=== PATIENT | female | born 1935 | race Caucasian/White ===

== ENCOUNTER → 2016-10-14 | Outpatient (CLI) | payer MEDICARE, BC ==
[2014-11-15 15:02] VITALS: BP 111/56
[~2016-10-14] MED LIST: ACET500T33 PO; AMIO200T7 PO; ASPI325T4 PO; CALC-98 PO; DILT120C97 PO; LEVO500T38 PO; MULT-208 PO; NITR0.4T6 SL; PRAV80TA2 PO; RIVA20TA2 PO; VALS40TA2 PO; ZOLE5INF IJ
--- NOTE | 2016-10-14 17:18 | KCIC ---
Examination: Three views of the left foot HISTORY History of left foot pain, bruising, swelling status post fall FINDINGS: Mild degenerative changes identified in the talonavicular region. The alignment of the tarsal bones grossly appears unremarkable. There is a minimal displaced fracture of the lateral base of the 5th metatarsal. IMPRESSION Mild displaced fracture of the lateral base of the 5th metatarsal. Electronically signed by: Dwayne Lemons (Oct 14, 2016 17:16:11)
--- NOTE | 2016-10-14 17:26 | KCIC ---
Examination: Three views of the right wrist HISTORY history of right wrist pain, bruising status post fall. COMPARISON None available Findings The alignment of the carpal bones grossly appears unremarkable. Degenerative changes identified in the carpal joints. Mild posterior cortical irregularityidentified in the lunate bone likely degeneration. There is widening of the scapholunate interval measuring 3.4 millimeters in transverse dimension. There is faint lucent line identified in the lateral aspect of the scaphoid could be artifactual given the appearance and less likely a fracture. Small ulnar styloid osteophyte. IMPRESSION 1. Widening of the scapholunate interval. Underlying scapholunate ligament injury is not excluded. There is subtle cortical lucent line lateral aspect of the scaphoid bone probably artifactual given the appearance however, a subtle fracture is not completely excluded. Recommend followup MRI for further evaluation. 2. Moderate degenerative changes carpal joints. Electronically signed by: Dwayne Lemons (Oct 14, 2016 17:24:41)
== END | disposition home or self-care (01) ==
LOC: KCIC 15:27
PROVIDERS: ATTEND Family Medicine
DX: M79.672 Pain in left foot (principal); M25.531 Pain in right wrist; S60.211A Contusion of right wrist, initial encounter; M47.899 Other spondylosis, site unspecified; S92.352A Displaced fracture of fifth metatarsal bone, left foot, initial encounter for closed fracture; M25.432 Effusion, left wrist
CPT/HCPCS: 73110; 73630

== ENCOUNTER → 2017-05-03 | Outpatient (CLI) | payer MEDICARE, BC ==
[2014-11-15 15:02] VITALS: BP 111/56
[~2017-05-03] MED LIST changes: -ASPI325T4 PO; +ASPI325T8 PO; +DILT120C80 PO; -DILT120C97 PO; -LEVO500T38 PO; +LEVO500T59 PO; +NITR0.4T22 SL; -NITR0.4T6 SL
--- NOTE | 2017-05-03 12:28 | CARD ---
APPROVED REPORT EXAM: Two-dimensional and M-mode echocardiogram with Doppler and color Doppler. Other Information Quality : Good INDICATION Atrial Fibrillation 2D DIMENSIONS RVDd3.0 (2.9-3.5cm)Left Atrium(2D)3.5 (1.6-4.0cm) IVSd1.0 (0.7-1.1cm)Aortic Root(2D)2.6 (2.0-3.7cm) LVDd4.2 (3.9-5.9cm)LVOT Diameter2.1 (1.8-2.4cm) PWd1.1 (0.7-1.1cm)LVDs2.7 (2.5-4.0cm) FS (%) 30.0 %SV52.8 ml LVEF(%)60.0 (>50%) Aortic Valve AoV Peak Enzo.108.7cm/sAoV VTI22.0cm AO Peak GR.4.7mmHgLVOT VTI 19.92cm AO Mean GR.3mmHgAVA (VTI)3.10cm2 Mitral Valve MV E Qgpdkyny477.9cm/sMV DECEL SLQO560sl MV A Muzhdupu52.6cm/sE/A Ratio1.1 TDI Lateral E' P. V10.75cm/sMedial E' P. V4.76cm/s E/Lateral E'9.5E/Medial E'21.4 Tricuspid Valve TR P. Zpemfmud332zr/sRAP CJREUFTX5jyWx TR Peak Gr.33lcNaDDZH97duUg Pulmonary Vein S1 Mmqjhijf38.4cm/sS2 Yefgjhfs66.56cm/s D2 Uypfzrcd30.6cm/s LEFT VENTRICLE The left ventricle is normal size. There is normal left ventricular wall thickness. The left ventricu lar systolic function is normal. The Ejection Fraction is 55-60%. There is normal LV segmental wall m otion. Transmitral Doppler flow pattern is Grade I-abnormal relaxation pattern. RIGHT VENTRICLE The right ventricle is normal size. The right ventricular systolic function is normal. ATRIA The left atrium size is normal. The right atrium size is normal. The interatrial septum is intact wit h no evidence for an atrial septal defect or patent foramen ovale as noted on 2-D or Doppler imaging. AORTIC VALVE The aortic valve is calcified but opens well. Doppler and Color Flow revealed no significant aortic r egurgitation. There is no significant aortic valvular stenosis. There is no aortic valvular vegetatio n. MITRAL VALVE The mitral valve is calcified but opens well. There is no evidence of mitral valve prolapse. There is no mitral valve stenosis. Doppler and Color-flow revealed mild mitral regurgitation. TRICUSPID VALVE The tricuspid valve is normal in structure and function. Doppler and Color Flow revealed mild tricusp id regurgitation. There is mild pulmonary hypertension. The PA pressure was estimated at 30 mmHg. The re is no tricuspid valve stenosis. PULMONIC VALVE The pulmonary valve is normal in structure and function. Doppler and Color Flow revealed trace to mil d pulmonic valvular regurgitation. There is no pulmonic valvular stenosis. GREAT VESSELS The aortic root is normal in size. The ascending aorta is normal in size. The IVC is normal in size a nd collapses >50% with inspiration. PERICARDIAL EFFUSION There is moderate left pleural effusion. There is no evidence of significant pericardial effusion. Critical Notification Critical Value: No <Conclusion> The left ventricular systolic function is normal. The Ejection Fraction is 55-60%. There is normal LV segmental wall motion. Mild mitral regurgitation. Mild tricuspid regurgitation. The PA pressure was estimated at 30 mmHg. There is no evidence of significant pericardial effusion.
== END | disposition home or self-care (01) ==
LOC: ECHO 08:38
PROVIDERS: ATTEND Internal Medicine Cardiovascular Disease
DX: I08.1 Rheumatic disorders of both mitral and tricuspid valves (principal); I48.0 Paroxysmal atrial fibrillation
CPT/HCPCS: 93306

== ENCOUNTER → 2018-03-22 | Outpatient (CLI) | payer MEDICARE, BC | END | disposition home or self-care (01) | LOC: US 15:41 | DX: I65.23 Occlusion and stenosis of bilateral carotid arteries (principal); I25.2 Old myocardial infarction; E78.5 Hyperlipidemia, unspecified; I48.0 Paroxysmal atrial fibrillation | CPT/HCPCS: 93880 ==

== ENCOUNTER 2018-04-11 14:17 | Inpatient (IN) | payer MEDICARE, BC ==
[~2018-04-11] VITALS: Ht 157.5 cm; Wt 68.0 kg
[2018-04-11] MEDS ORDERED: NITROGLYCERIN OINT 1 GM PACKET. TP ONE (14:45)
[2018-04-11] MEDS ORDERED: ASPIRIN CHEWABLE 81 MG TABLET. PO ONE (14:45)
[2018-04-11 14:52] LABS: BASO % 1 % (0-3); EOS # 0.2 x10^3/uL (0.0-0.7); EOS % 4 % (0-3); HEMATOCRIT 33.1 % (36.0-47.0); HEMOGLOBIN 10.6 g/dL (12.0-15.5); LYMPH # 0.9 x10^3/uL (1.0-4.8); LYMPH % 20 % (24-48); MEAN CORPUSCULAR HEMOGLOBIN 22 pg (25-35); MEAN CORPUSCULAR HGB CONC 32 g/dL (31-37); MEAN CORPUSCULAR VOLUME 70 fL (79-100); MONO # 0.6 x10^3/uL (0.0-1.1); MONO % 14 % (0-9); NEUT # 2.6 x10^3uL (1.8-7.7); NEUT % 62 % (31-73); PLATELET COUNT 132 x10^3/uL (140-400); RED BLOOD COUNT 4.76 x10^6/uL (3.50-5.40); WHITE BLOOD COUNT 4.2 x10^3/uL (4.0-11.0)
--- NOTE | 2018-04-11 15:00 | RAD ---
Single view of the chest. 04/11/2018 2:43 PM Indication: CHEST PAIN,SHORT OF AIR Comparison: Chest radiograph November 14, 2014 Findings: Calcified granuloma in the right lung base is stable. No pneumothorax, pleural effusion, or focal consolidative infiltrate is seen. Heart size is normal. No acute osseous abnormalities are seen. Impression: No evidence of acute cardiopulmonary process. Electronically signed by: Chad Grove MD (04/11/2018 2:56 PM) [id number]
--- NOTE | 2018-04-11 15:04 | PHYS DOC ---
Past Medical History Past Medical History: Hypertension, [place], Other Additional Past Medical Histor: LEUKOPENIA, COLON PROLASPE, L bundle branch block Past Surgical History: Hysterectomy, Other Additional Past Surgical Histo: COLON RESECTION, cataract removal Alcohol Use: None Drug Use: None Adult General Chief Complaint Chief Complaint: CHEST PAIN HPI HPI Patient is an 82-year-old female who presents to the emergency department for evaluation, upon referral from her PCPs office. She states that for the past few weeks, she has been having exertional chest discomfort, radiating to her neck and back along with some shortness of breath. She has a history of a prior "heart attack", but states she has never had stents put in. She also has a history of atrial fibrillation, and takes Eliquis. She does have chronic orthopnea but this is not new or different. She has not had any significant pleuritic chest pain but does have some mild exertional shortness of breath. She doesn't a history of valvular heart disease as well. Her no alleviating, or exacerbating factors to the patient's symptoms except as noted above. Review of Systems Review of Systems Constitutional: Denies fever or chills [] Eyes: Denies change in visual acuity, redness, or eye pain [] HENT: Denies nasal congestion or sore throat [] Respiratory: Denies cough or current shortness of breath [] Cardiovascular: No additional information not addressed in HPI [] GI: Denies abdominal pain, nausea, vomiting, bloody stools or diarrhea [] : Denies dysuria or hematuria [] Musculoskeletal: Denies back pain or joint pain [] Integument: Denies rash or skin lesions [] Neurologic: Denies headache, focal weakness or sensory changes [] Endocrine: Denies polyuria or polydipsia [] All other systems were reviewed and found to be within normal limits, except as documented in this note. Current Medications Current Medications Current Medications Medications (Trade) Dose Ordered Sig/Emilio Start Time Stop Time Status Last Admin Dose Admin Aspirin (Children'S Aspirin) 243 mg 1X ONCE 04/11/18 14:45 04/11/18 14:46 DC Nitroglycerin (Nitro-Bid Oint) 1 inch 1X ONCE 04/11/18 14:45 04/11/18 14:46 DC Allergies Allergies Allergies Coded Allergies Type Severity Reaction Last Updated Verified codeine Allergy Intermediate diarrhea, vomiting 05/17/14 Yes I S O L A T I O N *CONTACT* Allergy Unknown 11/15/14 Yes Physical Exam Physical Exam PHYSICAL EXAM: CONSTITUTIONAL: Well developed, well nourished HEAD: normocephalic, atraumatic EENT: PERRL, EOMI. Conjunctivae normal color, sclerae non-icteric; moist mucous membranes. NECK: Supple, non-tender; no meningismus. LUNGS: Lungs CTA, breathing even and unlabored. Normal air movement. HEART: Regular rate and rhythm, there is a soft systolic murmur. An S3 gallop is heard. CHEST: No deformity; non-tender ABDOMEN: The abdomen is soft, and non-tender, no masses or bruits. EXTREM: Normal ROM; no deformity, no calf tenderness. Normal pulses palpable in all extremities. There is no pedal edema. SKIN: No rash; no diaphoresis NEURO: Alert; normal speech and cognition; CN's grossly intact; strength grossly intact without focal deficit. BACK: No CVA TTP. Current Patient Data Vital Signs Vital Signs Date Time Temp Pulse Resp B/P (MAP) Pulse Ox O2 Delivery O2 Flow Rate FiO2 04/11/18 14:38 98.3 64 15 177/81 (113) 97 Room Air 98.3 Lab Values Laboratory Tests Test 04/11/18 14:41 White Blood Count 4.2 x10^3/uL (4.0-11.0) Red Blood Count 4.76 x10^6/uL (3.50-5.40) Hemoglobin 10.6 g/dL (12.0-15.5) L Hematocrit 33.1 % (36.0-47.0) L Mean Corpuscular Volume 70 fL (79-100) L Mean Corpuscular Hemoglobin 22 pg (25-35) L Mean Corpuscular Hemoglobin Concent 32 g/dL (31-37) Red Cell Distribution Width 21.0 % (11.5-14.5) H Platelet Count 132 x10^3/uL (140-400) L Neutrophils (%) (Auto) 62 % (31-73) Lymphocytes (%) (Auto) 20 % (24-48) L Monocytes (%) (Auto) 14 % (0-9) H Eosinophils (%) (Auto) 4 % (0-3) H Basophils (%) (Auto) 1 % (0-3) Neutrophils # (Auto) 2.6 x10^3uL (1.8-7.7) Lymphocytes # (Auto) 0.9 x10^3/uL (1.0-4.8) L Monocytes # (Auto) 0.6 x10^3/uL (0.0-1.1) Eosinophils # (Auto) 0.2 x10^3/uL (0.0-0.7) Basophils # (Auto) 0.0 x10^3/uL (0.0-0.2) Platelet Estimate Decreased (ADEQUATE) Hypochromasia Marked Anisocytosis Mod Microcytosis Marked Ovalocytes Few Sodium Level 136 mmol/L (136-145) Potassium Level 3.9 mmol/L (3.5-5.1) Chloride Level 102 mmol/L (98-107) Carbon Dioxide Level 24 mmol/L (21-32) Anion Gap 10 (6-14) Blood Urea Nitrogen 17 mg/dL (7-20) Creatinine 1.1 mg/dL (0.6-1.0) H Estimated GFR (Cockcroft-Gault) 47.7 BUN/Creatinine Ratio 15 (6-20) Glucose Level 97 mg/dL (70-99) Calcium Level 9.8 mg/dL (8.5-10.1) Magnesium Level 1.9 mg/dL (1.8-2.4) Total Bilirubin 0.4 mg/dL (0.2-1.0) Aspartate Amino Transferase (AST) 17 U/L (15-37) Alanine Aminotransferase (ALT) 21 U/L (14-59) Alkaline Phosphatase 86 U/L (46-116) Creatine Kinase 69 U/L (26-192) Creatine Kinase MB (Mass) 2.2 ng/mL (0.0-3.6) Creatine Kinase MB Relative Index % (0-4) Troponin I Quantitative < 0.017 ng/mL (0.000-0.055) OE-Fmg-C-Type Natriuretic Peptide 533 pg/mL (0-449) H Total Protein 7.1 g/dL (6.4-8.2) Albumin 3.9 g/dL (3.4-5.0) Albumin/Globulin Ratio 1.2 (1.0-1.7) Lipase 117 U/L (73-393) Laboratory Tests 04/11/18 14:41 Laboratory Tests 04/11/18 14:41 EKG EKG . Normal sinus rhythm at a rate of 64 beats for minute, left axis deviation, normal intervals, there are no acute ischemic ST/T changes noted. Radiology/Procedures Radiology/Procedures [PROCEDURE: PORTABLE CHEST 1V Single view of the chest. 04/11/2018 2:43 PM Indication: CHEST PAIN,SHORT OF AIR Comparison: Chest radiograph November 14, 2014 Findings: Calcified granuloma in the right lung base is stable. No pneumothorax, pleural effusion, or focal consolidative infiltrate is seen. Heart size is normal. No acute osseous abnormalities are seen. Impression: No evidence of acute cardiopulmonary process. ] Course & Med Decision Making Course & Med Decision Making Pertinent Labs and Imaging studies reviewed. (See chart for details) [3:40 PM: The patient's condition remains stable. I spoke with the hospitalist , who accepted the patient to the hospital for further evaluation and treatment. ] Dragon Disclaimer Dragon Disclaimer This electronic medical record was generated, in whole or in part, using a voice recognition dictation system. Departure Departure Impression: Primary Impression: Chest pain Disposition: ADMITTED INPATIENT Admitting Physician: Compa Morris Condition: STABLE Referrals: CAMERON TAYLOR MD (PCP) YASMIN LAWRENCE MD Apr 11, 2018 15:04
[2018-04-11 15:14] LABS: CALCIUM 9.8 mg/dL (8.5-10.1); CREATININE 1.1 mg/dL (0.6-1.0); GFR 47.7; POTASSIUM 3.9 mmol/L (3.5-5.1)
--- NOTE | 2018-04-11 15:17 | EKG ---
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
[2018-04-11 15:20] LABS: ALBUMIN 3.9 g/dL (3.4-5.0); ALBUMIN/GLOBULIN RATIO 1.2 (1.0-1.7); MAGNESIUM 1.9 mg/dL (1.8-2.4); TOTAL BILIRUBIN 0.4 mg/dL (0.2-1.0); TOTAL PROTEIN 7.1 g/dL (6.4-8.2)
[2018-04-11 15:22] LABS: ANISOCYTOSIS MOD; HYPOCHROMIA MARKED; PLT ESTIMATE DECREASED (ADEQUATE)
[2018-04-11 15:23] LABS: MICROCYTOSIS MARKED; OVALOCYTES FEW
[2018-04-11 15:27] LABS: CREATINE KINASE 69 U/L (26-192)
--- NOTE | 2018-04-11 16:59 | PDOC1 ---
History and Physical Date of Admission Date of Admission DATE: 04/11/18 TIME: 16:58 Identification/Chief Complaint Chief Complaint CC presented to the emergency department for evaluation, referral from her PCPs office. states that for the past few weeks, she has been having exertional chest discomfort, radiating to her neck and back , with shortness of breath. NONSMOKER Past Medical History Cardiovascular: AFIB, CAD, HTN, CT, Hyperlipidemia, Other Pulmonary: No pertinent hx CENTRAL NERVOUS SYSTEM: Other GI: Diverticulosis, Other Heme/Onc: Cancer Hepatobiliary: No pertinent hx Psych: No pertinent hx Musculoskeletal: Osteoarthritis Rheumatologic: No pertinent hx Infectious disease: No pertinent hx Renal/: UTI Endocrine: No pertinent hx Past Surgical History Past Surgical History: Hysterectomy, Colon Resection, Other Family History Family History: Coronary Artery Disease Family History: Parent Social History ALCOHOL: none Drugs: None Current Problem List Problem List Problems Medical Problems: (1) Chest pain Status: Acute Current Medications Current Medications Current Medications Aspirin (Children'S Aspirin) 243 mg 1X ONCE PO Last administered on 04/11/18at 15:39; Start 04/11/18 at 14:45; Stop 04/11/18 at 14:46; Status DC Nitroglycerin (Nitro-Bid Oint) 1 inch 1X ONCE TP Last administered on at 15:39; Start 04/11/18 at 14:45; Stop 04/11/18 at 14:46; Status DC Active Scripts Active Levaquin (Levofloxacin) 500 Mg Tablet 0.5 Tab PO DAILY 3 Days Reported Xarelto (Rivaroxaban) 20 Mg Tablet 20 Mg PO HS PRN Calcium + Vitamin D Tablet (Calcium Carbonate/Vitamin D3) 1 Each Tablet 1 Each PO BID Tylenol Extra Strength (Acetaminophen) 500 Mg Tablet 500 Mg PO PRN PRN Pravastatin Sodium 80 Mg Tablet 1 Tab PO HS Pacerone (Amiodarone Hcl) 200 Mg Tablet 100 Mg PO DAILY PRN NITROGLYCERIN SubLingual (Nitroglycerin) 0.4 Mg Tab.subl 1 Tab SL UD Multi-Day Vitamins (Multivitamin) 1 Each Tablet 1 Tab PO DAILY Diovan (Valsartan) 40 Mg Tablet 1 Tab PO DAILY Diltiazem 24HR Cd (Diltiazem Hcl) 120 Mg Cap.er.24h 1 Cap PO HS Aspirin 325 Mg Tablet 1 Tab PO DAILY Allergies Allergies: Coded Allergies: codeine (Verified Allergy, Intermediate, diarrhea, vomiting, 05/17/14) I S O L A T I O N *CONTACT* (Verified Allergy, Unknown, 11/15/14) mrsa + ROS Review of System Review of Systems Review of Systems Constitutional: Denies fever or chills [] Eyes: Denies change in visual acuity, redness, or eye pain [] HENT: Denies nasal congestion or sore throat [] Respiratory: Denies cough or current shortness of breath [] Cardiovascular: No additional information not addressed in HPI [] GI: Denies abdominal pain, nausea, vomiting, bloody stools or diarrhea [] : Denies dysuria or hematuria [] Musculoskeletal: Denies back pain or joint pain [] Integument: Denies rash or skin lesions [] Neurologic: Denies headache, focal weakness or sensory changes [] Endocrine: Denies polyuria or polydipsia [] 14 PT systems were reviewed and found to be within normal limits, except as documented . ALLERGY AND IMMUNOLOGY: No: Hives, Insect Bite Sensitivity, Itchy/Watery Eyes, Nasal Congestion, Post Nasal Drip, Seasonal Allergies, Other Breast: No New/Changing Breast Lumps, No Nipple changes, No Nipple discharge, No Other Physical Exam Physical Exam Physical Exam Physical Exam PHYSICAL EXAM: CONSTITUTIONAL: Well developed, well nourished HEAD: normocephalic, atraumatic EENT: PERRL, EOMI. Conjunctivae normal color, sclerae non-icteric; moist mucous membranes. NECK: Supple, non-tender; no meningismus. LUNGS: Lungs CTA, breathing even and unlabored. Normal air movement. HEART: Regular rate and rhythm, there is a soft systolic murmur. An S3 gallop is heard. CHEST: No deformity; non-tender ABDOMEN: The abdomen is soft, and non-tender, no masses or bruits. EXTREM: Normal ROM; no deformity, no calf tenderness. Normal pulses palpable in all extremities. There is no pedal edema. SKIN: No rash; no diaphoresis NEURO: Alert; normal speech and cognition; CN's grossly intact; strength grossly intact without focal deficit. General: Oriented X3, Cooperative Neuro: Cranial nerves 3-12 NL Vitals Vitals Vital Signs Date Time Temp Pulse Resp B/P (MAP) Pulse Ox O2 Delivery O2 Flow Rate FiO2 04/11/18 15:39 56 154/71 04/11/18 15:35 16 98 Room Air 04/11/18 14:38 98.3 98.3 Labs Labs Laboratory Tests Test 04/11/18 14:41 White Blood Count 4.2 x10^3/uL (4.0-11.0) Red Blood Count 4.76 x10^6/uL (3.50-5.40) Hemoglobin 10.6 g/dL (12.0-15.5) Hematocrit 33.1 % (36.0-47.0) Mean Corpuscular Volume 70 fL (79-100) Mean Corpuscular Hemoglobin 22 pg (25-35) Mean Corpuscular Hemoglobin Concent 32 g/dL (31-37) Red Cell Distribution Width 21.0 % (11.5-14.5) Platelet Count 132 x10^3/uL (140-400) Neutrophils (%) (Auto) 62 % (31-73) Lymphocytes (%) (Auto) 20 % (24-48) Monocytes (%) (Auto) 14 % (0-9) Eosinophils (%) (Auto) 4 % (0-3) Basophils (%) (Auto) 1 % (0-3) Neutrophils # (Auto) 2.6 x10^3uL (1.8-7.7) Lymphocytes # (Auto) 0.9 x10^3/uL (1.0-4.8) Monocytes # (Auto) 0.6 x10^3/uL (0.0-1.1) Eosinophils # (Auto) 0.2 x10^3/uL (0.0-0.7) Basophils # (Auto) 0.0 x10^3/uL (0.0-0.2) Platelet Estimate Decreased (ADEQUATE) Hypochromasia Marked Anisocytosis Mod Microcytosis Marked Ovalocytes Few Sodium Level 136 mmol/L (136-145) Potassium Level 3.9 mmol/L (3.5-5.1) Chloride Level 102 mmol/L (98-107) Carbon Dioxide Level 24 mmol/L (21-32) Anion Gap 10 (6-14) Blood Urea Nitrogen 17 mg/dL (7-20) Creatinine 1.1 mg/dL (0.6-1.0) Estimated GFR (Cockcroft-Gault) 47.7 BUN/Creatinine Ratio 15 (6-20) Glucose Level 97 mg/dL (70-99) Calcium Level 9.8 mg/dL (8.5-10.1) Magnesium Level 1.9 mg/dL (1.8-2.4) Total Bilirubin 0.4 mg/dL (0.2-1.0) Aspartate Amino Transf (AST/SGOT) 17 U/L (15-37) Alanine Aminotransferase (ALT/SGPT) 21 U/L (14-59) Alkaline Phosphatase 86 U/L (46-116) Creatine Kinase 69 U/L (26-192) Creatine Kinase MB (Mass) 2.2 ng/mL (0.0-3.6) Creatine Kinase MB Relative Index % (0-4) Troponin I Quantitative < 0.017 ng/mL (0.000-0.055) LT-Yzz-B-Type Natriuretic Peptide 533 pg/mL (0-449) Total Protein 7.1 g/dL (6.4-8.2) Albumin 3.9 g/dL (3.4-5.0) Albumin/Globulin Ratio 1.2 (1.0-1.7) Lipase 117 U/L (73-393) Laboratory Tests Test 04/11/18 14:41 White Blood Count 4.2 x10^3/uL (4.0-11.0) Red Blood Count 4.76 x10^6/uL (3.50-5.40) Hemoglobin 10.6 g/dL (12.0-15.5) Hematocrit 33.1 % (36.0-47.0) Mean Corpuscular Volume 70 fL (79-100) Mean Corpuscular Hemoglobin 22 pg (25-35) Mean Corpuscular Hemoglobin Concent 32 g/dL (31-37) Red Cell Distribution Width 21.0 % (11.5-14.5) Platelet Count 132 x10^3/uL (140-400) Neutrophils (%) (Auto) 62 % (31-73) Lymphocytes (%) (Auto) 20 % (24-48) Monocytes (%) (Auto) 14 % (0-9) Eosinophils (%) (Auto) 4 % (0-3) Basophils (%) (Auto) 1 % (0-3) Neutrophils # (Auto) 2.6 x10^3uL (1.8-7.7) Lymphocytes # (Auto) 0.9 x10^3/uL (1.0-4.8) Monocytes # (Auto) 0.6 x10^3/uL (0.0-1.1) Eosinophils # (Auto) 0.2 x10^3/uL (0.0-0.7) Basophils # (Auto) 0.0 x10^3/uL (0.0-0.2) Platelet Estimate Decreased (ADEQUATE) Hypochromasia Marked Anisocytosis Mod Microcytosis Marked Ovalocytes Few Sodium Level 136 mmol/L (136-145) Potassium Level 3.9 mmol/L (3.5-5.1) Chloride Level 102 mmol/L (98-107) Carbon Dioxide Level 24 mmol/L (21-32) Anion Gap 10 (6-14) Blood Urea Nitrogen 17 mg/dL (7-20) Creatinine 1.1 mg/dL (0.6-1.0) Estimated GFR (Cockcroft-Gault) 47.7 BUN/Creatinine Ratio 15 (6-20) Glucose Level 97 mg/dL (70-99) Calcium Level 9.8 mg/dL (8.5-10.1) Magnesium Level 1.9 mg/dL (1.8-2.4) Total Bilirubin 0.4 mg/dL (0.2-1.0) Aspartate Amino Transf (AST/SGOT) 17 U/L (15-37) Alanine Aminotransferase (ALT/SGPT) 21 U/L (14-59) Alkaline Phosphatase 86 U/L (46-116) Creatine Kinase 69 U/L (26-192) Creatine Kinase MB (Mass) 2.2 ng/mL (0.0-3.6) Creatine Kinase MB Relative Index % (0-4) Troponin I Quantitative < 0.017 ng/mL (0.000-0.055) PG-Ixc-X-Type Natriuretic Peptide 533 pg/mL (0-449) Total Protein 7.1 g/dL (6.4-8.2) Albumin 3.9 g/dL (3.4-5.0) Albumin/Globulin Ratio 1.2 (1.0-1.7) Lipase 117 U/L (73-393) VTE Prophylaxis Ordered VTE Prophylaxis Devices: No VTE Pharmacological Prophylaxi: Yes Assessment/Plan Assessment/Plan IMPRESSION 1. CHEST PAIN 2. HX A-FIB 3, HLP 4. HTN PLAN 1. TELE 2. ECHO 3. CARDIOLOGY CONSULT 4. SERIAL TROPONIN I CHEN ODELL MD Apr 11, 2018 16:59
[2018-04-11] MEDS ORDERED: ACETAMINOPHEN 500 MG TABLET PO PRN (17:15)
[2018-04-11 18:00] VITALS: BP 134/67
[2018-04-11] MEDS: CALCIUM CARB/VIT D3 500/200 TABLET. PO SCH (18:00)
[2018-04-11 19:15] VITALS: BP 134/68
[2018-04-11] MEDS: ATORVASTATIN CALCIUM 20 MG TABLET PO SCH (20:40)
[2018-04-11] MEDS: NITROGLYCERIN SUBLINGUAL 0.4 MG BOTTLE OF 25. SL PRN ×2 (20:46→21:19)
[2018-04-11] MEDS ORDERED: RIVAROXABAN 10 MG TABLET. PO SCH (21:00)
[2018-04-11] MEDS ORDERED: APIXABAN 2.5 MG TABLET. PO SCH (21:00)
[2018-04-11] MEDS ORDERED: LOSA25TA4 PO (21:01)
[2018-04-11] MEDS ORDERED: ASPI81TA50 PO (21:01)
[2018-04-11] MEDS ORDERED: OMEP20TA63 PO (21:01)
[2018-04-11] MEDS ORDERED: APIX2.5T PO (21:04)
[2018-04-11 23:00] VITALS: BP 106/74
[2018-04-12 03:09] VITALS: BP 110/72
[2018-04-12 05:07] LABS: BASO % 1 % (0-3); EOS # 0.2 x10^3/uL (0.0-0.7); EOS % 6 % (0-3); HEMATOCRIT 28.5 % (36.0-47.0); HEMOGLOBIN 9.2 g/dL (12.0-15.5); LYMPH # 0.8 x10^3/uL (1.0-4.8); LYMPH % 25 % (24-48); MEAN CORPUSCULAR HEMOGLOBIN 22 pg (25-35); MEAN CORPUSCULAR HGB CONC 32 g/dL (31-37); MEAN CORPUSCULAR VOLUME 69 fL (79-100); MONO # 0.6 x10^3/uL (0.0-1.1); MONO % 17 % (0-9); NEUT # 1.7 x10^3uL (1.8-7.7); NEUT % 51 % (31-73); PLATELET COUNT 112 x10^3/uL (140-400); RED BLOOD COUNT 4.15 x10^6/uL (3.50-5.40); RED CELL DISTRIBUTION WIDTH 20.6 % (11.5-14.5); WHITE BLOOD COUNT 3.3 x10^3/uL (4.0-11.0)
[2018-04-12 05:55] LABS: GFR 53.2; POTASSIUM 3.9 mmol/L (3.5-5.1)
[2018-04-12 07:00] VITALS: BP 113/59
[2018-04-12] MEDS: MULTIVITAMIN with MINERAL TABLET. PO SCH (08:31)
[2018-04-12] MEDS: ASPIRIN ENTERIC COATED 81 MG TABLET.DR. PO SCH (08:31)
[2018-04-12] MEDS: CALCIUM CARB/VIT D3 500/200 TABLET. PO SCH ×2 (08:32→17:36)
[2018-04-12] MEDS: AMIODARONE HCL 200 MG TABLET. PO SCH (08:32)
[2018-04-12] MEDS: PANTOPRAZOLE 40 MG TABLET.DR. PO SCH (08:32)
[2018-04-12] MEDS: LOSARTAN POTASSIUM 25 MG TABLET. PO SCH (08:33)
[2018-04-12] MEDS ORDERED: LACT1CAP6 PO (08:37)
[2018-04-12] MEDS ORDERED: LEVOFLOXACIN PO SCH (09:00)
[2018-04-12] MEDS ORDERED: LOSARTAN POTASSIUM 25 MG TABLET. PO SCH (09:00)
[2018-04-12] MEDS ORDERED: ASPIRIN 325 MG TABLET PO SCH (09:00)
[2018-04-12] MEDS: LACTOBACILLUS RHAMNOSUS GG 1 CAPSULE. PO SCH ×2 (09:01→20:52)
--- NOTE | 2018-04-12 10:32 | PDOC ---
PROGRESS NOTES Chief Complaint Chief Complaint Assessment/Plan Assessment/Plan IMPRESSION 1. CHEST PAIN 2. HX A-FIB 3, HLP 4. HTN PLAN 1. TELE 2. ECHO 3. STRESS TEST 4. SERIAL TROPONIN I SOME ANGINAL PAIN LAST NIGHT SL NTG X 2 HELPED Vitals Vitals Vital Signs Date Time Temp Pulse Resp B/P (MAP) Pulse Ox O2 Delivery O2 Flow Rate FiO2 04/12/18 08:33 57 113/59 04/12/18 08:00 Room Air 04/12/18 07:00 98.4 16 96 98.4 Physical Exam General: Oriented X3, Cooperative, No acute distress Lungs: Clear Abdomen: Normal bowel sounds, Soft Extremities: No clubbing, No cyanosis Skin: No rashes Labs LABS Laboratory Tests Test 04/11/18 14:41 04/11/18 18:50 04/11/18 21:50 04/12/18 04:10 White Blood Count 4.2 x10^3/uL (4.0-11.0) 3.3 x10^3/uL (4.0-11.0) Red Blood Count 4.76 x10^6/uL (3.50-5.40) 4.15 x10^6/uL (3.50-5.40) Hemoglobin 10.6 g/dL (12.0-15.5) 9.2 g/dL (12.0-15.5) Hematocrit 33.1 % (36.0-47.0) 28.5 % (36.0-47.0) Mean Corpuscular Volume 70 fL (79-100) 69 fL (79-100) Mean Corpuscular Hemoglobin 22 pg (25-35) 22 pg (25-35) Mean Corpuscular Hemoglobin Concent 32 g/dL (31-37) 32 g/dL (31-37) Red Cell Distribution Width 21.0 % (11.5-14.5) 20.6 % (11.5-14.5) Platelet Count 132 x10^3/uL (140-400) 112 x10^3/uL (140-400) Neutrophils (%) (Auto) 62 % (31-73) 51 % (31-73) Lymphocytes (%) (Auto) 20 % (24-48) 25 % (24-48) Monocytes (%) (Auto) 14 % (0-9) 17 % (0-9) Eosinophils (%) (Auto) 4 % (0-3) 6 % (0-3) Basophils (%) (Auto) 1 % (0-3) 1 % (0-3) Neutrophils # (Auto) 2.6 x10^3uL (1.8-7.7) 1.7 x10^3uL (1.8-7.7) Lymphocytes # (Auto) 0.9 x10^3/uL (1.0-4.8) 0.8 x10^3/uL (1.0-4.8) Monocytes # (Auto) 0.6 x10^3/uL (0.0-1.1) 0.6 x10^3/uL (0.0-1.1) Eosinophils # (Auto) 0.2 x10^3/uL (0.0-0.7) 0.2 x10^3/uL (0.0-0.7) Basophils # (Auto) 0.0 x10^3/uL (0.0-0.2) 0.0 x10^3/uL (0.0-0.2) Platelet Estimate Decreased (ADEQUATE) Hypochromasia Marked Anisocytosis Mod Microcytosis Marked Ovalocytes Few Sodium Level 136 mmol/L (136-145) 135 mmol/L (136-145) Potassium Level 3.9 mmol/L (3.5-5.1) 3.9 mmol/L (3.5-5.1) Chloride Level 102 mmol/L (98-107) 104 mmol/L (98-107) Carbon Dioxide Level 24 mmol/L (21-32) 24 mmol/L (21-32) Anion Gap 10 (6-14) 7 (6-14) Blood Urea Nitrogen 17 mg/dL (7-20) 18 mg/dL (7-20) Creatinine 1.1 mg/dL (0.6-1.0) 1.0 mg/dL (0.6-1.0) Estimated GFR (Cockcroft-Gault) 47.7 53.2 BUN/Creatinine Ratio 15 (6-20) Glucose Level 97 mg/dL (70-99) 83 mg/dL (70-99) Calcium Level 9.8 mg/dL (8.5-10.1) 9.0 mg/dL (8.5-10.1) Magnesium Level 1.9 mg/dL (1.8-2.4) Total Bilirubin 0.4 mg/dL (0.2-1.0) Aspartate Amino Transf (AST/SGOT) 17 U/L (15-37) Alanine Aminotransferase (ALT/SGPT) 21 U/L (14-59) Alkaline Phosphatase 86 U/L (46-116) Creatine Kinase 69 U/L (26-192) Creatine Kinase MB (Mass) 2.2 ng/mL (0.0-3.6) Creatine Kinase MB Relative Index % (0-4) Troponin I Quantitative < 0.017 ng/mL (0.000-0.055) < 0.017 ng/mL (0.000-0.055) < 0.017 ng/mL (0.000-0.055) CH-Lqn-I-Type Natriuretic Peptide 533 pg/mL (0-449) Total Protein 7.1 g/dL (6.4-8.2) Albumin 3.9 g/dL (3.4-5.0) Albumin/Globulin Ratio 1.2 (1.0-1.7) Lipase 117 U/L (73-393) Assessment and Plan Assessmemt and Plan Problems Medical Problems: (1) Chest pain Status: Acute Comment Review of Relevant I have reviewed the following items nacho (where applicable) has been applied. Labs Laboratory Tests Test 04/11/18 14:41 04/11/18 18:50 04/11/18 21:50 04/12/18 04:10 White Blood Count 4.2 x10^3/uL (4.0-11.0) 3.3 x10^3/uL (4.0-11.0) Red Blood Count 4.76 x10^6/uL (3.50-5.40) 4.15 x10^6/uL (3.50-5.40) Hemoglobin 10.6 g/dL (12.0-15.5) 9.2 g/dL (12.0-15.5) Hematocrit 33.1 % (36.0-47.0) 28.5 % (36.0-47.0) Mean Corpuscular Volume 70 fL (79-100) 69 fL (79-100) Mean Corpuscular Hemoglobin 22 pg (25-35) 22 pg (25-35) Mean Corpuscular Hemoglobin Concent 32 g/dL (31-37) 32 g/dL (31-37) Red Cell Distribution Width 21.0 % (11.5-14.5) 20.6 % (11.5-14.5) Platelet Count 132 x10^3/uL (140-400) 112 x10^3/uL (140-400) Neutrophils (%) (Auto) 62 % (31-73) 51 % (31-73) Lymphocytes (%) (Auto) 20 % (24-48) 25 % (24-48) Monocytes (%) (Auto) 14 % (0-9) 17 % (0-9) Eosinophils (%) (Auto) 4 % (0-3) 6 % (0-3) Basophils (%) (Auto) 1 % (0-3) 1 % (0-3) Neutrophils # (Auto) 2.6 x10^3uL (1.8-7.7) 1.7 x10^3uL (1.8-7.7) Lymphocytes # (Auto) 0.9 x10^3/uL (1.0-4.8) 0.8 x10^3/uL (1.0-4.8) Monocytes # (Auto) 0.6 x10^3/uL (0.0-1.1) 0.6 x10^3/uL (0.0-1.1) Eosinophils # (Auto) 0.2 x10^3/uL (0.0-0.7) 0.2 x10^3/uL (0.0-0.7) Basophils # (Auto) 0.0 x10^3/uL (0.0-0.2) 0.0 x10^3/uL (0.0-0.2) Platelet Estimate Decreased (ADEQUATE) Hypochromasia Marked Anisocytosis Mod Microcytosis Marked Ovalocytes Few Sodium Level 136 mmol/L (136-145) 135 mmol/L (136-145) Potassium Level 3.9 mmol/L (3.5-5.1) 3.9 mmol/L (3.5-5.1) Chloride Level 102 mmol/L (98-107) 104 mmol/L (98-107) Carbon Dioxide Level 24 mmol/L (21-32) 24 mmol/L (21-32) Anion Gap 10 (6-14) 7 (6-14) Blood Urea Nitrogen 17 mg/dL (7-20) 18 mg/dL (7-20) Creatinine 1.1 mg/dL (0.6-1.0) 1.0 mg/dL (0.6-1.0) Estimated GFR (Cockcroft-Gault) 47.7 53.2 BUN/Creatinine Ratio 15 (6-20) Glucose Level 97 mg/dL (70-99) 83 mg/dL (70-99) Calcium Level 9.8 mg/dL (8.5-10.1) 9.0 mg/dL (8.5-10.1) Magnesium Level 1.9 mg/dL (1.8-2.4) Total Bilirubin 0.4 mg/dL (0.2-1.0) Aspartate Amino Transf (AST/SGOT) 17 U/L (15-37) Alanine Aminotransferase (ALT/SGPT) 21 U/L (14-59) Alkaline Phosphatase 86 U/L (46-116) Creatine Kinase 69 U/L (26-192) Creatine Kinase MB (Mass) 2.2 ng/mL (0.0-3.6) Creatine Kinase MB Relative Index % (0-4) Troponin I Quantitative < 0.017 ng/mL (0.000-0.055) < 0.017 ng/mL (0.000-0.055) < 0.017 ng/mL (0.000-0.055) PD-Lxc-P-Type Natriuretic Peptide 533 pg/mL (0-449) Total Protein 7.1 g/dL (6.4-8.2) Albumin 3.9 g/dL (3.4-5.0) Albumin/Globulin Ratio 1.2 (1.0-1.7) Lipase 117 U/L (73-393) Laboratory Tests Test 04/11/18 14:41 04/11/18 18:50 04/11/18 21:50 04/12/18 04:10 White Blood Count 4.2 x10^3/uL (4.0-11.0) 3.3 x10^3/uL (4.0-11.0) Red Blood Count 4.76 x10^6/uL (3.50-5.40) 4.15 x10^6/uL (3.50-5.40) Hemoglobin 10.6 g/dL (12.0-15.5) 9.2 g/dL (12.0-15.5) Hematocrit 33.1 % (36.0-47.0) 28.5 % (36.0-47.0) Mean Corpuscular Volume 70 fL (79-100) 69 fL (79-100) Mean Corpuscular Hemoglobin 22 pg (25-35) 22 pg (25-35) Mean Corpuscular Hemoglobin Concent 32 g/dL (31-37) 32 g/dL (31-37) Red Cell Distribution Width 21.0 % (11.5-14.5) 20.6 % (11.5-14.5) Platelet Count 132 x10^3/uL (140-400) 112 x10^3/uL (140-400) Neutrophils (%) (Auto) 62 % (31-73) 51 % (31-73) Lymphocytes (%) (Auto) 20 % (24-48) 25 % (24-48) Monocytes (%) (Auto) 14 % (0-9) 17 % (0-9) Eosinophils (%) (Auto) 4 % (0-3) 6 % (0-3) Basophils (%) (Auto) 1 % (0-3) 1 % (0-3) Neutrophils # (Auto) 2.6 x10^3uL (1.8-7.7) 1.7 x10^3uL (1.8-7.7) Lymphocytes # (Auto) 0.9 x10^3/uL (1.0-4.8) 0.8 x10^3/uL (1.0-4.8) Monocytes # (Auto) 0.6 x10^3/uL (0.0-1.1) 0.6 x10^3/uL (0.0-1.1) Eosinophils # (Auto) 0.2 x10^3/uL (0.0-0.7) 0.2 x10^3/uL (0.0-0.7) Basophils # (Auto) 0.0 x10^3/uL (0.0-0.2) 0.0 x10^3/uL (0.0-0.2) Platelet Estimate Decreased (ADEQUATE) Hypochromasia Marked Anisocytosis Mod Microcytosis Marked Ovalocytes Few Sodium Level 136 mmol/L (136-145) 135 mmol/L (136-145) Potassium Level 3.9 mmol/L (3.5-5.1) 3.9 mmol/L (3.5-5.1) Chloride Level 102 mmol/L (98-107) 104 mmol/L (98-107) Carbon Dioxide Level 24 mmol/L (21-32) 24 mmol/L (21-32) Anion Gap 10 (6-14) 7 (6-14) Blood Urea Nitrogen 17 mg/dL (7-20) 18 mg/dL (7-20) Creatinine 1.1 mg/dL (0.6-1.0) 1.0 mg/dL (0.6-1.0) Estimated GFR (Cockcroft-Gault) 47.7 53.2 BUN/Creatinine Ratio 15 (6-20) Glucose Level 97 mg/dL (70-99) 83 mg/dL (70-99) Calcium Level 9.8 mg/dL (8.5-10.1) 9.0 mg/dL (8.5-10.1) Magnesium Level 1.9 mg/dL (1.8-2.4) Total Bilirubin 0.4 mg/dL (0.2-1.0) Aspartate Amino Transf (AST/SGOT) 17 U/L (15-37) Alanine Aminotransferase (ALT/SGPT) 21 U/L (14-59) Alkaline Phosphatase 86 U/L (46-116) Creatine Kinase 69 U/L (26-192) Creatine Kinase MB (Mass) 2.2 ng/mL (0.0-3.6) Creatine Kinase MB Relative Index % (0-4) Troponin I Quantitative < 0.017 ng/mL (0.000-0.055) < 0.017 ng/mL (0.000-0.055) < 0.017 ng/mL (0.000-0.055) YD-Rbv-V-Type Natriuretic Peptide 533 pg/mL (0-449) Total Protein 7.1 g/dL (6.4-8.2) Albumin 3.9 g/dL (3.4-5.0) Albumin/Globulin Ratio 1.2 (1.0-1.7) Lipase 117 U/L (73-393) Medications Current Medications Aspirin (Children'S Aspirin) 243 mg 1X ONCE PO Last administered on 04/11/18at 15:39; Start 04/11/18 at 14:45; Stop 04/11/18 at 14:46; Status DC Nitroglycerin (Nitro-Bid Oint) 1 inch 1X ONCE TP Last administered on at 15:39; Start 04/11/18 at 14:45; Stop 04/11/18 at 14:46; Status DC Acetaminophen (Tylenol) 500 mg PRN Q6HRS PRN PO PAIN; Start 04/11/18 at 17:15 Amiodarone HCl (Cordarone) 100 mg DAILY PO Last administered on 04/12/18at 08:32 ; Start 04/12/18 at 09:00 Aspirin (Dana Aspirin) 325 mg DAILY PO ; Start 04/12/18 at 09:00; Stop at 09:00; Status Cancel Diltiazem HCl (Cardizem 24hr Cd) 120 mg HS PO ; Start 04/11/18 at 21:00; Stop at 21:15; Status DC Nitroglycerin (Nitrostat) 0.4 mg PRN Q1HR PRN SL CHEST PAIN Last administered on 04/11/18at 21:19; Start 04/11/18 at 17:15 Calcium/Vitamin D (Oscal D 500mg/ 200uts) 1 tab BIDWMEALS PO Last administered on 04/12/18at 08:32; Start 04/11/18 at 18:00 Non-Formulary Medication (Levofloxacin (Levaquin)) 0.5 tab DAILY PO ; Start at 09:00; Status UNV Multivitamins (Thera M Plus) 1 tab DAILY PO Last administered on 04/12/18at 08: 31; Start 04/12/18 at 09:00 Atorvastatin Calcium (Lipitor) 20 mg QHS PO Last administered on 04/11/18at 20: 40; Start 04/11/18 at 21:00 Rivaroxaban (Xarelto) 20 mg QHS PO ; Start 04/11/18 at 21:00; Stop 04/11/18 at 21:09; Status DC Losartan Potassium (Cozaar) 25 mg DAILY PO Last administered on 04/12/18at 08:33 ; Start 04/12/18 at 09:00 Aspirin (Ecotrin) 81 mg DAILY PO Last administered on 04/12/18at 08:31; Start at 09:00 Losartan Potassium (Cozaar) 25 mg DAILY PO ; Start 04/12/18 at 09:00; Status UNV Pantoprazole Sodium (Protonix) 40 mg DAILYAC PO Last administered on 04/12/18at 08:32; Start 04/12/18 at 07:30 Apixaban (Eliquis) 2.5 mg HS PO Last administered on 04/11/18at 21:18; Start at 21:00 Diltiazem HCl (Cardizem 24hr Cd) 120 mg DAILY PO Last administered on at 08:33; Start 04/12/18 at 09:00 Lactobacillus Rhamnosus (Culturelle) 1 cap BID PO Last administered on at 09:01; Start 04/12/18 at 09:00 Active Scripts Active Reported Probiotic (Lactobacillus Acidophilus) 1 Each Capsule 1 Each PO DAILY Eliquis (Apixaban) 2.5 Mg Tablet 2.5 Mg PO HS Prilosec Otc (Omeprazole Magnesium) 20 Mg Tablet.dr 1 Tab PO DAILY Losartan Potassium 25 Mg Tablet 25 Mg PO DAILY Aspir-Low (Aspirin) 81 Mg Tablet.dr 1 Tab PO DAILY Calcium + Vitamin D Tablet (Calcium Carbonate/Vitamin D3) 1 Each Tablet 1 Each PO BID Tylenol Extra Strength (Acetaminophen) 500 Mg Tablet 500 Mg PO PRN PRN Pravastatin Sodium 80 Mg Tablet 1 Tab PO HS Pacerone (Amiodarone Hcl) 200 Mg Tablet 100 Mg PO DAILY PRN NITROGLYCERIN SubLingual (Nitroglycerin) 0.4 Mg Tab.subl 1 Tab SL UD Multi-Day Vitamins (Multivitamin) 1 Each Tablet 1 Tab PO DAILY Diovan (Valsartan) 40 Mg Tablet 1 Tab PO DAILY Diltiazem 24HR Cd (Diltiazem Hcl) 120 Mg Cap.er.24h 1 Cap PO DAILY Vitals/I & O Vital Sign - Last 24 Hours 04/11/18 04/11/18 04/11/18/14/18 14:38 15:05 15:35 15:39 Temp 98.3 98.3 Pulse 64 58 58 56 Resp 15 12 16 B/P (MAP) 177/81 (113) 152/72 (98) 154/71 (98) 154/71 Pulse Ox 97 98 98 O2 Delivery Room Air Room Air Room Air 04/11/18 04/11/18 04/11/18 04/11/18 16:05 16:35 18:00 18:00 Temp 98.1 98.1 Pulse 50 50 58 Resp 20 16 16 B/P (MAP) 173/74 (107) 149/71 (97) 134/67 (89) Pulse Ox 98 98 98 O2 Delivery Room Air Room Air Room Air Room Air 04/11/18 04/11/18 04/11/18 04/11/18 19:15 20:00 20:46 21:19 Temp 98.0 98.0 Pulse 57 61 60 Resp 18 B/P (MAP) 134/68 (90) 134/68 126/61 Pulse Ox 98 O2 Delivery Room Air Room Air 04/11/18 04/12/18 04/12/18 04/12/18 23:00 03:09 07:00 08:00 Temp 98.1 98.0 98.4 98.1 98.0 98.4 Pulse 57 57 57 Resp 18 18 16 B/P (MAP) 106/74 (85) 110/72 (85) 113/59 (77) Pulse Ox 95 96 96 O2 Delivery Room Air Room Air Room Air Room Air 04/12/18 04/12/18 04/12/18 08:32 08:33 08:33 Pulse 57 57 57 B/P (MAP) 113/59 113/59 113/59 Intake and Output 04/11/18 04/11/18 04/12/18 15:00 23:00 07:00 Intake Total 660 ml Balance 660 ml CHEN ODELL MD Apr 12, 2018 10:32
[2018-04-12 11:00] VITALS: BP_SYST 129; BP_SYST 93; BP_DIAS 69; BP_DIAS 77
--- NOTE | 2018-04-12 11:56 | PDOC2 ---
RHONA TURK HAT MENDER 04/12/18 1156: CARDIAC CONSULT DATE OF CONSULT Date of Consult DATE: 04/12/18 TIME: 11:52 REASON FOR CONSULT Reason for Consult: chest pain REFERRING PHYSICIAN Referring Physician: Ming SOURCE Source: Chart review, Patient HISTORY OF PRESENT ILLNESS HISTORY OF PRESENT ILLNESS 82 year old female with a 2 week history of back/chest pain originally starting at a green party. Pain started in her back and then radiated through to the chest. Later the same day she had sharp pain that prevented her from getting out of bed and radiated to the jaw and left arm. She took SL NTG X 2 with resolution of symptoms. She now reports at least 5 episodes of pain that required her to take SL NTG all precipitated by walking then dyspnea and then back/chest pain. Troponin levels and EKG not consistent with AMI. She also has complaints of food "getting stuck" and difficulty swallowing. She has been eating primarily lettuce and fruit. She was scheduled to be evaluated by GI today but is missing that appointment. She has further c/o intermittent numbness in her right face but denies history of Edgar's palsy or trigeminal neuralgia. Reason for Visit: chest pain, MATA PAST MEDICAL HISTORY Cardiovascular: AFIB (paroxysmal), HTN, [place] (2009), Hyperlipidemia, Other (LBBB ; venous insufficiency with RF catheter ablation bilateral GSV) Pulmonary: No pertinent hx CENTRAL NERVOUS SYSTEM: Other (none) GI: Diverticulosis, GERD Heme/Onc: No pertinent hx Hepatobiliary: No pertinent hx Psych: No pertinent hx Musculoskeletal: Osteoarthritis Rheumatologic: No pertinent hx Infectious disease: No pertinent hx ENT: Other (epistaxis associated with Xarelto) Renal/: No pertinent hx Endocrine: No pertinent hx Dermatology: No pertinent hx PAST SURGICAL HISTORY Past Surgical History: Hysterectomy, Colectomy (partial due to diverticulitis and polyps - 2012) FAMILY HISTORY Family History: Cancer, Heart Disease SOCIAL HISTORY Smoke: No ALCOHOL: none Drugs: None Lives: with Family CURRENT MEDICATIONS CURRENT MEDICATIONS Current Medications Medications (Trade) Dose Ordered Sig/Emilio Route PRN Reason Start Time Stop Time Status Last Admin Dose Admin Aspirin (Children'S Aspirin) 243 mg 1X ONCE PO 04/11/18 14:45 04/11/18 14:46 DC 04/11/18 15:39 Nitroglycerin (Nitro-Bid Oint) 1 inch 1X ONCE TP 04/11/18 14:45 04/11/18 14:46 DC 04/11/18 15:39 Amiodarone HCl (Cordarone) 100 mg DAILY PO 04/12/18 09:00 04/12/18 08:32 Nitroglycerin (Nitrostat) 0.4 mg PRN Q1HR PRN SL CHEST PAIN 04/11/18 17:15 04/11/18 21:19 Calcium/Vitamin D (Oscal D 500mg/ 200uts) 1 tab BIDWMEALS PO 04/11/18 18:00 04/12/18 08:32 Multivitamins (Thera M Plus) 1 tab DAILY PO 04/12/18 09:00 04/12/18 08:31 Atorvastatin Calcium (Lipitor) 20 mg QHS PO 04/11/18 21:00 04/11/18 20:40 Losartan Potassium (Cozaar) 25 mg DAILY PO 04/12/18 09:00 04/12/18 08:33 Aspirin (Ecotrin) 81 mg DAILY PO 04/12/18 09:00 04/12/18 08:31 Pantoprazole Sodium (Protonix) 40 mg DAILYAC PO 04/12/18 07:30 04/12/18 08:32 Apixaban (Eliquis) 2.5 mg HS PO 04/11/18 21:00 04/11/18 21:18 Diltiazem HCl (Cardizem 24hr Cd) 120 mg DAILY PO 04/12/18 09:00 04/12/18 08:33 Lactobacillus Rhamnosus (Culturelle) 1 cap BID PO 04/12/18 09:00 04/12/18 09:01 ALLERGIES ALLERGIES: Coded Allergies: codeine (Verified Allergy, Intermediate, diarrhea, vomiting, 05/17/14) I S O L A T I O N *CONTACT* (Verified Allergy, Unknown, 11/15/14) mrsa + ROS Review of System 14 point review with pertinent positives in HPI PHYSICAL EXAM General: Alert, Oriented X3, Cooperative, No acute distress HEENT: Atraumatic, PERRLA Lungs: Clear to auscultation, Normal air movement Heart: Normal S1, Normal S2, No murmurs Abdomen: Soft Extremities: No edema, Normal pulses Skin: No rashes Neuro: Normal speech Psych/Mental Status: Mental status NL, Mood NL MUSCULOSKELETAL: Osteoarthritic changes both hands VITALS VITALS Vital Signs Date Time Temp Pulse Resp B/P (MAP) Pulse Ox O2 Delivery O2 Flow Rate FiO2 04/12/18 11:00 98.0 63 16 129/69 (89) 98 Room Air 98.0 LABS Lab: Laboratory Tests Test 04/11/18 14:41 04/11/18 18:50 04/11/18 21:50 04/12/18 04:10 White Blood Count 4.2 x10^3/uL (4.0-11.0) 3.3 x10^3/uL (4.0-11.0) Red Blood Count 4.76 x10^6/uL (3.50-5.40) 4.15 x10^6/uL (3.50-5.40) Hemoglobin 10.6 g/dL (12.0-15.5) 9.2 g/dL (12.0-15.5) Hematocrit 33.1 % (36.0-47.0) 28.5 % (36.0-47.0) Mean Corpuscular Volume 70 fL (79-100) 69 fL (79-100) Mean Corpuscular Hemoglobin 22 pg (25-35) 22 pg (25-35) Mean Corpuscular Hemoglobin Concent 32 g/dL (31-37) 32 g/dL (31-37) Red Cell Distribution Width 21.0 % (11.5-14.5) 20.6 % (11.5-14.5) Platelet Count 132 x10^3/uL (140-400) 112 x10^3/uL (140-400) Neutrophils (%) (Auto) 62 % (31-73) 51 % (31-73) Lymphocytes (%) (Auto) 20 % (24-48) 25 % (24-48) Monocytes (%) (Auto) 14 % (0-9) 17 % (0-9) Eosinophils (%) (Auto) 4 % (0-3) 6 % (0-3) Basophils (%) (Auto) 1 % (0-3) 1 % (0-3) Neutrophils # (Auto) 2.6 x10^3uL (1.8-7.7) 1.7 x10^3uL (1.8-7.7) Lymphocytes # (Auto) 0.9 x10^3/uL (1.0-4.8) 0.8 x10^3/uL (1.0-4.8) Monocytes # (Auto) 0.6 x10^3/uL (0.0-1.1) 0.6 x10^3/uL (0.0-1.1) Eosinophils # (Auto) 0.2 x10^3/uL (0.0-0.7) 0.2 x10^3/uL (0.0-0.7) Basophils # (Auto) 0.0 x10^3/uL (0.0-0.2) 0.0 x10^3/uL (0.0-0.2) Platelet Estimate Decreased (ADEQUATE) Hypochromasia Marked Anisocytosis Mod Microcytosis Marked Ovalocytes Few Sodium Level 136 mmol/L (136-145) 135 mmol/L (136-145) Potassium Level 3.9 mmol/L (3.5-5.1) 3.9 mmol/L (3.5-5.1) Chloride Level 102 mmol/L (98-107) 104 mmol/L (98-107) Carbon Dioxide Level 24 mmol/L (21-32) 24 mmol/L (21-32) Anion Gap 10 (6-14) 7 (6-14) Blood Urea Nitrogen 17 mg/dL (7-20) 18 mg/dL (7-20) Creatinine 1.1 mg/dL (0.6-1.0) 1.0 mg/dL (0.6-1.0) Estimated GFR (Cockcroft-Gault) 47.7 53.2 BUN/Creatinine Ratio 15 (6-20) Glucose Level 97 mg/dL (70-99) 83 mg/dL (70-99) Calcium Level 9.8 mg/dL (8.5-10.1) 9.0 mg/dL (8.5-10.1) Magnesium Level 1.9 mg/dL (1.8-2.4) Total Bilirubin 0.4 mg/dL (0.2-1.0) Aspartate Amino Transf (AST/SGOT) 17 U/L (15-37) Alanine Aminotransferase (ALT/SGPT) 21 U/L (14-59) Alkaline Phosphatase 86 U/L (46-116) Creatine Kinase 69 U/L (26-192) Creatine Kinase MB (Mass) 2.2 ng/mL (0.0-3.6) Creatine Kinase MB Relative Index % (0-4) Troponin I Quantitative < 0.017 ng/mL (0.000-0.055) < 0.017 ng/mL (0.000-0.055) < 0.017 ng/mL (0.000-0.055) LJ-Fqz-U-Type Natriuretic Peptide 533 pg/mL (0-449) Total Protein 7.1 g/dL (6.4-8.2) Albumin 3.9 g/dL (3.4-5.0) Albumin/Globulin Ratio 1.2 (1.0-1.7) Lipase 117 U/L (73-393) IMAGES IMAGES CXR: Findings: Calcified granuloma in the right lung base is stable. No pneumothorax, pleural effusion, or focal consolidative infiltrate is seen. Heart size is normal. No acute osseous abnormalities are seen. Impression: No evidence of acute cardiopulmonary process. EKG EKG no acute changes ECHOCARDIOGRAM ECHOCARDIOGRAM pending ASSESSMENT/PLAN ASSESSMENT/PLAN 1. chest/back pain --precipitated by exertion --relieved with SL NTG --EKG and troponin levels not consistent with AMI --echo to evaluate for valvular disease and assess LVEF --pharm MPI --- ate earlier today and had caffeine --- will schedule for tomorrow to evaluate for ischemic disease 2. PAF --EKG = SR --continue dilt for rate control and amiodarone as anti-arrhythmic --Xarelto stopped due to epistaxis and started on Eliquis but has only been taking once daily - increase to BID 3. HTN --control with meds 4. HLD --check FLP --continue statin therapy 5. dysphagia --consult GI 6. facial numbness --defer to primary service MATTHEW MARIE MD 04/12/18 7116: CARDIAC CONSULT ASSESSMENT/PLAN ASSESSMENT/PLAN Patient seen and examined. Agree with PROPERTY MANAGEMENT ACCOUNTANT's assessment and plan. Chest pain with mixed features. Myocardial infarction been ruled out. 2-D echo showed normal LV function. Plan for Lexiscan nuclear stress test to rule out ischemia. Thank you for your consultation. RHONA TURK APRN Apr 12, 2018 11:56 MATTHEW MARIE MD Apr 12, 2018 17:06
--- NOTE | 2018-04-12 12:02 | CARD ---
MR#: [id number] Date of Study: 04/12/2018 Ordering Physician: CHEN ODELL, Referring Physician: CHEN ODELL, Tech: SHASHA Fontenot APPROVED REPORT EXAM: Two-dimensional and M-mode echocardiogram with Doppler and color Doppler. Other Information Quality : AverageHR: 61bpm Rhythm : LBBB INDICATION Chest Pain 2D DIMENSIONS RVDd3.0 (2.9-3.5cm)Left Atrium(2D)2.9 (1.6-4.0cm) IVSd1.3 (0.7-1.1cm)Aortic Root(2D)2.4 (2.0-3.7cm) LVDd4.2 (3.9-5.9cm)LVOT Diameter1.9 (1.8-2.4cm) PWd1.3 (0.7-1.1cm)LVDs3.0 (2.5-4.0cm) FS (%) 29.0 %SV43.9 ml LVEF(%)56.1 (>50%) Aortic Valve AoV Peak Enzo.114.4cm/sAoV VTI25.2cm AO Peak GR.5.2mmHgLVOT VTI 17.72cm AO Mean GR.3mmHg Mitral Valve MV E Kfhsoqwc83.4cm/sMV E Peak Gr.62mmHg MV DECEL [id number] A Wcygrvfw78.1cm/s E/A Ratio1.1 TDI Lateral E' P. V9.65cm/sMedial E' P. V14.22cm/s E/Lateral E'9.5E/Medial E'6.4 Tricuspid Valve TR P. [id number]/sRAP [id number] TR Peak Gr.18mmHg LEFT VENTRICLE The left ventricle is normal size. There is mild concentric left ventricular hypertrophy. The left ve ntricular systolic function is normal. The ejection fraction is estimated at 55-60%. There is normal LV segmental wall motion. The left ventricular diastolic function and filling is normal for age. RIGHT VENTRICLE The right ventricle is normal size. The right ventricular systolic function is normal. ATRIA The left atrium size is normal. The right atrium size is normal. The interatrial septum is intact wit h no evidence for an atrial septal defect or patent foramen ovale as noted on 2-D or Doppler imaging. AORTIC VALVE The aortic valve is thickened but opens well. Doppler and Color Flow revealed no significant aortic r egurgitation. There is no significant aortic valvular stenosis. There is no aortic valvular vegetatio n. MITRAL VALVE The mitral valve is mildly thickened. There is no evidence of mitral valve prolapse. There is no mitr al valve stenosis. Doppler and Color-flow revealed mild mitral regurgitation. TRICUSPID VALVE The tricuspid valve is not well visualized. Doppler and Color Flow revealed mild tricuspid regurgitat ion. The PA pressure was estimated at 24 mmHg. There is no tricuspid valve stenosis. PULMONIC VALVE The pulmonic valve is not well visualized. Doppler and Color Flow revealed trace pulmonic valvular re gurgitation. There is no pulmonic valvular stenosis. GREAT VESSELS The aortic root is normal in size. The IVC is dilated and collapses >50% with inspiration. PERICARDIAL EFFUSION There is no pleural effusion. There is no evidence of significant pericardial effusion. Critical Notification Critical Value: No <Conclusion> The left ventricular systolic function is normal. The ejection fraction is estimated at 55-60%. There is normal LV segmental wall motion. Mild mitral regurgitation. Mild tricuspid regurgitation. The PA pressure was estimated at 24 mmHg. There is no evidence of significant pericardial effusion. Signed by : Patrick Don, Electronically Approved : 04/12/2018 12:01:26
[2018-04-12] MEDS: APIXABAN 2.5 MG TABLET. PO SCH ×2 (12:16→23:17)
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
[2018-04-12] MEDS: ANTI-COAG MONITOR BY PHARMACY. MC PRN (14:21)
[2018-04-12 15:00] VITALS: BP 117/62
[2018-04-12 19:34] VITALS: BP 142/60
[2018-04-12] MEDS: ATORVASTATIN CALCIUM 20 MG TABLET PO SCH (20:52)
[2018-04-12 23:45] VITALS: BP 136/49
[2018-04-13 03:14] VITALS: BP 130/97
[2018-04-13 05:09] LABS: CHOLESTEROL/HDL RATIO 2.2
[2018-04-13 07:36] VITALS: BP 138/66
[2018-04-13] MEDS ORDERED: REGADENOSON 0.4 MG/5 ML DISP.SYRIN. IV ONE (08:15)
[2018-04-13] MEDS: AMIODARONE HCL 200 MG TABLET. PO SCH (10:00)
[2018-04-13] MEDS: PANTOPRAZOLE 40 MG TABLET.DR. PO SCH (10:00)
[2018-04-13] MEDS: APIXABAN 2.5 MG TABLET. PO SCH ×2 (10:01→20:19)
[2018-04-13] MEDS: LOSARTAN POTASSIUM 25 MG TABLET. PO SCH (10:01)
[2018-04-13] MEDS: ASPIRIN ENTERIC COATED 81 MG TABLET.DR. PO SCH (10:01)
[2018-04-13] MEDS: MULTIVITAMIN with MINERAL TABLET. PO SCH (10:01)
[2018-04-13] MEDS: LACTOBACILLUS RHAMNOSUS GG 1 CAPSULE. PO SCH ×2 (10:01→20:18)
[2018-04-13] MEDS: CALCIUM CARB/VIT D3 500/200 TABLET. PO SCH ×2 (10:01→17:22)
[2018-04-13 11:13] VITALS: BP 136/63
--- NOTE | 2018-04-13 11:28 | PDOC ---
AWILDAThanhNICOLE NEWS CLERK 04/13/18 1128: CARDIO Progress Notes Date and Time Date of Service 04/13/2018 Time of Evaluation 1100 Subjective Subjective: No Chest Pain, No shortness of breath, No Palpitations, Other ( still has sensation of food and pill trapping when swallowing) Vitals Vitals Vital Signs Date Time Temp Pulse Resp B/P (MAP) Pulse Ox O2 Delivery O2 Flow Rate FiO2 04/13/18 10:01 75 138/66 04/13/18 08:43 Room Air 04/13/18 07:36 97.7 20 95 97.7 Weight Weight [ ] Input and Output Intake and Output Intake and Output 04/13/18 07:00 Intake Total 650 ml Balance 650 ml Intake Oral 650 ml # Voids 6 Physical Exam HEENT: Neck Supple W Full Motion Chest: Symmetric LUNGS: Clear to Auscultation Heart: S1S2, RRR (SR) Abdomen: Soft N/T Extremities: No Edema, No Calf Tenderness Neurology: alert, oriented, follow commands Assessment Assessment 1. Chest pain with back pain: Possibly GI related. EF/WM nml with mild MR/TR 2. PAFIB: remains in SR 3. HTN: controlled 4. HLP: on goal. 5. Dysphagia: EGD planned for tomorrow. 6. Left facial numbness; intermittent sometimes last for a day. Presently absent. No other associated symptoms. [place]? 7. Pancytopenia: per PCP Recommendations 1. Continue on low dose eliquis given her anemia and mild thrombocytopenia and recurring past epistaxis. 2. Continue on amiodarone and diltiazem. May hole eliquyomaira elmore in preparation for EGD tomorrow. 3. MPI completion today. 4. Consider neurology consult. MATTHEW MARIE MD 04/14/18 0908: CARDIO Progress Notes Assessment Assessment Patient seen and examined 04/13/18 (late entry). Agree with HOIST CYLINDER LOADER's assessment and plan. Lexiscan nuclear stress test did not show any significant ischemia Maintaining sinus rhythm Continue current medical regimen Follow-up with our office as previously scheduled NICOLE SERNA APRN Apr 13, 2018 11:28 MATTHEW MARIE MD Apr 14, 2018 09:08
--- NOTE | 2018-04-13 11:28 | RAD ---
MR#: [id number] Date of Study: 04/13/2018 Ordering Physician: RHONA TURK, Referring Physician: JUDITH LLAMAS Tech: RT Tonie (R) (N) APPROVED REPORT Test Type: Pharmacological Stress Nurse/Tech: Dori Beal R.N. Test Indications: chest pain Cardiac History: htn Medications: see ehr Medical History: see ehr Resting ECG: sr, LBBB Resting Heart Rate: 65 bpm Resting Blood Pressure: 131/63mmHg Pretest Chest Pain: Typical angina Nurse/Tech Notes LUngs cta, heart tones regular, pt c/o 4/10 chest apin which has been typical for her intermittantly Consent: The procedure was explained to the patient in lay terms. Informed consent was witnessed. Colin eout was entered into [employer]. History and Stress Test performed by [facility] Details Pharmacologic stress testing was performed using 0.4mg per 5ml of regadenoson given intravenously ove r 7-10 seconds. Stress Symptoms pt c/o chest pain started at 4/10 to 6/10 POST EXERCISE Reason for Termination: Infusion complete Target HR: No Max HR: 89 bpm Max Blood Pressure: 151/53mmHg Chest Pain: Yes. see above Arrhythmia: No. ST Change: No. INTERPRETATION Stress EKG Conclusion: Baseline EKG showed sinus rhythm with LBBB. No ischemic changes at peak stres s. No arrhythmias. Imaging Protocol IMAGE PROTOCOL: Rest Tc-99m/stress Tc-99m 1 day Rest: Stress: Viability: Radiopharm.Tc99m [id number] Sestamibi [id number] 32mCi Duration 13min. 13min. Img Date 04/13/2018 04/13/2018 Inj-Img [id number]. 60min. Rest Admin Site:IV - Left AntecubitalAdministrator:RT Michelle (R)(N) Stress Admin Site: IV - Left AntecubitalAdministrator: [facility] STRESS DATA End Diast. Vol.78.0mlLVEDV index BSA46.0ml End Syst. Vol.22.0mlLVESV index BSA13.0ml Myocardial Bxws598.0gEject. Gayoeqmo11.0% Stress Scores Regional WT0.00Summed WT1.00 Regional WM0.00Summed WM6.00 Study quality was good. Left Ventricular size was Normal at Rest and Stress. Lung uptake was Normal. Left Ventricular ejection fraction is 72%. The rest and stress images show normal perfusion, normal contraction and thickening. LV Perf. Quant 17 Seg. SSS0.00 17 Seg. SRS6.00 17 Seg. SDS0.00 Stress Defect Extent (% LAD)0.00Rest Defect Extent (% LAD)11.30Rev. Defect Extent (% LAD)0.00 Stress Defect Extent (% LCX) 0.00Rest Defect Extent (% LCX)0.00Rev. Defect Extent (% LCX)0.00 Stress Defect Extent (% RCA)0.00Rest Defect Extent (% RCA)22.20Rev. Defect Extent (% RCA)0.00 Stress Defect Extent (% JD)0.00Rest Defect Extent (% JD)11.70Rev. Defect Extent (% JD)0.00 Conclusion 1. Regadenoson cardioisotope stress test did not show any evidence of ischemia or infarct. 2. Normal left ventricular systolic function with ejection fraction calculated at 72%. 3. Low risk for cardiac events. Signed by : Patrick Don, Electronically Approved : 04/13/2018 11:27:01
--- NOTE | 2018-04-13 11:51 | PDOC ---
Subjective: Subjective: Clarifies that intermittent facial numbness is actually on left side and food sticks on left as well. Also, re: "colectomy" in history I believe refers to cystocele or rectocele repair. Objective: Objective: D/w Malorie/CLASS B DRIVER yesterday - suspects esophageal issue but could pursue outpt videoswallow if EGD unrevealing. Vital Signs: Vital Signs Date Time Temp Pulse Resp B/P (MAP) Pulse Ox O2 Delivery O2 Flow Rate FiO2 04/13/18 11:13 97.9 67 18 136/63 (87) 99 Room Air 97.9 Imaging: MPI 04/13/18 Conclusion 1. Regadenoson cardioisotope stress test did not show any evidence of ischemia or infarct. 2. Normal left ventricular systolic function with ejection fraction calculated at 72%. 3. Low risk for cardiac events. PE: GEN: NAD LUNGS: CTAB HEART: RRR ABD: NABS, S/ND/NT NEURO/PSYCH: A & O 3 A/P: Chest and back pain Dysphagia - now says on left side -- EGD tomorrow KAMLA Dela Cruz Apr 13, 2018 11:51
--- NOTE | 2018-04-13 13:17 | PDOC ---
PROGRESS NOTES Chief Complaint Chief Complaint Assessment/Plan Assessment/Plan IMPRESSION 1. CHEST PAIN 2. HX A-FIB 3, HLP 4. HTN 5. intermittent left facial paresthesia PLAN 1. TELE 2. ECHO 3. STRESS TEST 4. SERIAL TROPONIN I 5. neurology consult Vitals Vitals Vital Signs Date Time Temp Pulse Resp B/P (MAP) Pulse Ox O2 Delivery O2 Flow Rate FiO2 04/13/18 11:13 97.9 67 18 136/63 (87) 99 Room Air 97.9 Physical Exam General: Alert, Oriented X3, Cooperative, No acute distress Heart: Normal S1, Normal S2, No murmurs Lungs: Clear Abdomen: Normal bowel sounds, Soft, No tenderness Extremities: No clubbing, No cyanosis Skin: No rashes, No significant lesion Labs LABS Rest Admin Site: IV - Left Antecubital [employer]: José Miguel Duong, RT (R)( N) Stress Admin Site: IV - Left Antecubital [employer]: [facility] STRESS DATA End Diast. Vol. 78.0ml LVEDV index BSA 46.0ml End Syst. Vol. 22.0ml LVESV index BSA 13.0ml Myocardial Mass 123.0g Eject. Fraction 72.0% Stress Scores Regional WT 0.00 Summed WT 1.00 Regional WM 0.00 Summed WM 6.00 Study quality was good. Left Ventricular size was Normal at Rest and Stress. Lung uptake was Normal. Left Ventricular ejection fraction is 72%. The rest and stress images show normal perfusion, normal contraction and thickening. LV Perf. Quant 17 Seg. SSS 0.00 17 Seg. SRS 6.00 17 Seg. SDS 0.00 Stress Defect Extent (% LAD) 0.00 Rest Defect Extent (% LAD) 11.30 Rev. Defect Extent (% LAD) 0.00 Stress Defect Extent (% LCX) 0.00 Rest Defect Extent (% LCX) 0.00 Rev. Defect Extent (% LCX) 0.00 Stress Defect Extent (% RCA) 0.00 Rest Defect Extent (% RCA) 22.20 Rev. Defect Extent (% RCA) 0.00 Stress Defect Extent (% JD) 0.00 Rest Defect Extent (% JD) 11.70 Rev. Defect Extent (% JD) 0.00 Conclusion 1. Regadenoson cardioisotope stress test did not show any evidence of ischemia or infarct. 2. Normal left ventricular systolic function with ejection fraction calculated at 72%. 3. Low risk for cardiac events. Assessment and Plan Assessmemt and Plan Problems Medical Problems: (1) Chest pain Status: Acute Comment Review of Relevant I have reviewed the following items nacho (where applicable) has been applied. Labs Laboratory Tests Test 04/11/18 14:41 04/11/18 18:50 04/11/18 21:50 04/12/18 04:10 White Blood Count 4.2 x10^3/uL (4.0-11.0) 3.3 x10^3/uL (4.0-11.0) Red Blood Count 4.76 x10^6/uL (3.50-5.40) 4.15 x10^6/uL (3.50-5.40) Hemoglobin 10.6 g/dL (12.0-15.5) 9.2 g/dL (12.0-15.5) Hematocrit 33.1 % (36.0-47.0) 28.5 % (36.0-47.0) Mean Corpuscular Volume 70 fL (79-100) 69 fL (79-100) Mean Corpuscular Hemoglobin 22 pg (25-35) 22 pg (25-35) Mean Corpuscular Hemoglobin Concent 32 g/dL (31-37) 32 g/dL (31-37) Red Cell Distribution Width 21.0 % (11.5-14.5) 20.6 % (11.5-14.5) Platelet Count 132 x10^3/uL (140-400) 112 x10^3/uL (140-400) Neutrophils (%) (Auto) 62 % (31-73) 51 % (31-73) Lymphocytes (%) (Auto) 20 % (24-48) 25 % (24-48) Monocytes (%) (Auto) 14 % (0-9) 17 % (0-9) Eosinophils (%) (Auto) 4 % (0-3) 6 % (0-3) Basophils (%) (Auto) 1 % (0-3) 1 % (0-3) Neutrophils # (Auto) 2.6 x10^3uL (1.8-7.7) 1.7 x10^3uL (1.8-7.7) Lymphocytes # (Auto) 0.9 x10^3/uL (1.0-4.8) 0.8 x10^3/uL (1.0-4.8) Monocytes # (Auto) 0.6 x10^3/uL (0.0-1.1) 0.6 x10^3/uL (0.0-1.1) Eosinophils # (Auto) 0.2 x10^3/uL (0.0-0.7) 0.2 x10^3/uL (0.0-0.7) Basophils # (Auto) 0.0 x10^3/uL (0.0-0.2) 0.0 x10^3/uL (0.0-0.2) Platelet Estimate Decreased (ADEQUATE) Hypochromasia Marked Anisocytosis Mod Microcytosis Marked Ovalocytes Few Sodium Level 136 mmol/L (136-145) 135 mmol/L (136-145) Potassium Level 3.9 mmol/L (3.5-5.1) 3.9 mmol/L (3.5-5.1) Chloride Level 102 mmol/L (98-107) 104 mmol/L (98-107) Carbon Dioxide Level 24 mmol/L (21-32) 24 mmol/L (21-32) Anion Gap 10 (6-14) 7 (6-14) Blood Urea Nitrogen 17 mg/dL (7-20) 18 mg/dL (7-20) Creatinine 1.1 mg/dL (0.6-1.0) 1.0 mg/dL (0.6-1.0) Estimated GFR (Cockcroft-Gault) 47.7 53.2 BUN/Creatinine Ratio 15 (6-20) Glucose Level 97 mg/dL (70-99) 83 mg/dL (70-99) Calcium Level 9.8 mg/dL (8.5-10.1) 9.0 mg/dL (8.5-10.1) Magnesium Level 1.9 mg/dL (1.8-2.4) Total Bilirubin 0.4 mg/dL (0.2-1.0) Aspartate Amino Transf (AST/SGOT) 17 U/L (15-37) Alanine Aminotransferase (ALT/SGPT) 21 U/L (14-59) Alkaline Phosphatase 86 U/L (46-116) Creatine Kinase 69 U/L (26-192) Creatine Kinase MB (Mass) 2.2 ng/mL (0.0-3.6) Creatine Kinase MB Relative Index % (0-4) Troponin I Quantitative < 0.017 ng/mL (0.000-0.055) < 0.017 ng/mL (0.000-0.055) < 0.017 ng/mL (0.000-0.055) KY-Bug-A-Type Natriuretic Peptide 533 pg/mL (0-449) Total Protein 7.1 g/dL (6.4-8.2) Albumin 3.9 g/dL (3.4-5.0) Albumin/Globulin Ratio 1.2 (1.0-1.7) Lipase 117 U/L (73-393) Triglycerides Level 46 mg/dL (0-150) Cholesterol Level 132 mg/dL (0-200) LDL Cholesterol, Calculated 62 mg/dL (0-100) VLDL Cholesterol, Calculated 9 mg/dL (0-40) Non-HDL Cholesterol Calculated 71 mg/dL (0-129) HDL Cholesterol 61 mg/dL (40-60) Cholesterol/HDL Ratio 2.2 Medications Current Medications Aspirin (Children'S Aspirin) 243 mg 1X ONCE PO Last administered on 04/11/18at 15:39; Start 04/11/18 at 14:45; Stop 04/11/18 at 14:46; Status DC Nitroglycerin (Nitro-Bid Oint) 1 inch 1X ONCE TP Last administered on at 15:39; Start 04/11/18 at 14:45; Stop 04/11/18 at 14:46; Status DC Acetaminophen (Tylenol) 500 mg PRN Q6HRS PRN PO PAIN; Start 04/11/18 at 17:15 Amiodarone HCl (Cordarone) 100 mg DAILY PO Last administered on 04/13/18at 10:00 ; Start 04/12/18 at 09:00 Aspirin (Dana Aspirin) 325 mg DAILY PO ; Start 04/12/18 at 09:00; Stop at 09:00; Status Cancel Diltiazem HCl (Cardizem 24hr Cd) 120 mg HS PO ; Start 04/11/18 at 21:00; Stop at 21:15; Status DC Nitroglycerin (Nitrostat) 0.4 mg PRN Q1HR PRN SL CHEST PAIN Last administered on 04/11/18 21:19; Start 04/11/18 at 17:15 Calcium/Vitamin D (Oscal D 500mg/ 200uts) 1 tab BIDWMEALS PO Last administered on 04/13/18at 10:01; Start 04/11/18 at 18:00 Non-Formulary Medication (Levofloxacin (Levaquin)) 0.5 tab DAILY PO ; Start at 09:00; Status UNV Multivitamins (Thera M Plus) 1 tab DAILY PO Last administered on 04/13/18 10: 01; Start 04/12/18 at 09:00 Atorvastatin Calcium (Lipitor) 20 mg QHS PO Last administered on 04/12/18at 20: 52; Start 04/11/18 at 21:00 Rivaroxaban (Xarelto) 20 mg QHS PO ; Start 04/11/18 at 21:00; Stop 04/11/18 at 21:09; Status DC Losartan Potassium (Cozaar) 25 mg DAILY PO Last administered on 04/13/18 10:01 ; Start 04/12/18 at 09:00 Aspirin (Ecotrin) 81 mg DAILY PO Last administered on 04/13/18 10:01; Start at 09:00 Losartan Potassium (Cozaar) 25 mg DAILY PO ; Start 04/12/18 at 09:00; Status UNV Pantoprazole Sodium (Protonix) 40 mg DAILYAC PO Last administered on 04/13/18at 10:00; Start 04/12/18 at 07:30 Apixaban (Eliquis) 2.5 mg HS PO Last administered on 04/11/18 21:18; Start at 21:00; Stop 04/12/18 at 11:53; Status DC Diltiazem HCl (Cardizem 24hr Cd) 120 mg DAILY PO Last administered on at 10:00; Start 04/12/18 at 09:00 Lactobacillus Rhamnosus (Culturelle) 1 cap BID PO Last administered on at 10:01; Start 04/12/18 at 09:00 Apixaban (Eliquis) 2.5 mg BID PO Last administered on 04/13/18at 10:01; Start at 12:00 Info (Anti-Coagulation Monitoring By Pharmacy) 1 each PRN DAILY PRN MC SEE COMMENTS Last administered on 04/12/18at 14:21; Start 04/12/18 at 14:30 Regadenoson (Lexiscan) 0.4 mg 1X ONCE IV Last administered on 04/13/18at 08:48 ; Start 04/13/18 at 08:15; Stop 04/13/18 at 08:16; Status DC Active Scripts Active Reported Probiotic (Lactobacillus Acidophilus) 1 Each Capsule 1 Each PO DAILY Eliquis (Apixaban) 2.5 Mg Tablet 2.5 Mg PO HS Prilosec Otc (Omeprazole Magnesium) 20 Mg Tablet.dr 1 Tab PO DAILY Losartan Potassium 25 Mg Tablet 25 Mg PO DAILY Aspir-Low (Aspirin) 81 Mg Tablet.dr 1 Tab PO DAILY Calcium + Vitamin D Tablet (Calcium Carbonate/Vitamin D3) 1 Each Tablet 1 Each PO BID Tylenol Extra Strength (Acetaminophen) 500 Mg Tablet 500 Mg PO PRN PRN Pravastatin Sodium 80 Mg Tablet 1 Tab PO HS Pacerone (Amiodarone Hcl) 200 Mg Tablet 100 Mg PO DAILY PRN NITROGLYCERIN SubLingual (Nitroglycerin) 0.4 Mg Tab.subl 1 Tab SL UD Multi-Day Vitamins (Multivitamin) 1 Each Tablet 1 Tab PO DAILY Diovan (Valsartan) 40 Mg Tablet 1 Tab PO DAILY Diltiazem 24HR Cd (Diltiazem Hcl) 120 Mg Cap.er.24h 1 Cap PO DAILY Vitals/I & O Vital Sign - Last 24 Hours 04/12/18 04/12/18 04/12/18 04/12/18 15:00 19:34 20:15 23:45 Temp 97.7 98.0 98.2 97.7 98.0 98.2 Pulse 59 63 62 Resp 16 18 18 B/P (MAP) 117/62 (80) 142/60 (87) 136/49 (78) Pulse Ox 98 96 96 O2 Delivery Room Air Room Air Room Air Room Air 04/13/18 04/13/18 04/13/18 04/13/18 03:14 07:36 08:43 10:00 Temp 97.8 97.7 97.8 97.7 Pulse 60 75 75 Resp 16 20 B/P (MAP) 130/97 (108) 138/66 (90) 138/66 Pulse Ox 96 95 O2 Delivery Room Air Room Air Room Air 04/13/18 04/13/18 04/13/18 10:00 10:01 11:13 Temp 97.9 97.9 Pulse 75 75 67 Resp 18 B/P (MAP) 138/66 138/66 136/63 (87) Pulse Ox 99 O2 Delivery Room Air Intake and Output 04/12/18 04/12/18 04/13/18 15:00 23:00 07:00 Intake Total 150 ml 500 ml Balance 150 ml 500 ml CHEN ODELL MD Apr 13, 2018 13:17
[2018-04-13 14:43] LABS: BILIRUBIN,URINE NEGATIVE (NEG); CLARITY,URINE CLOUDY; COLOR,URINE YELLOW; NITRITE,URINE POSITIVE (NEG); PROTEIN,URINE 30 mg/dL (NEG-TRACE); UROBILINOGEN,URINE 0.2 mg/dL (0.2 mg/dL)
[2018-04-13 14:49] LABS: BACTERIA,URINE MANY /HPF (0-FEW); WBC,URINE TNTC /HPF (0-4)
[2018-04-13 15:00] VITALS: BP 117/61
[2018-04-13] MEDS: ANTI-COAG MONITOR BY PHARMACY. MC PRN (15:17)
[2018-04-13] MEDS ORDERED: cefTRIAXone IV Push 1 GM VIAL. IVP SCH (18:00)
[2018-04-13 19:15] VITALS: BP 104/52
--- NOTE | 2018-04-13 19:26 | PDOC2 ---
NEUROLOGY CONSULT Date of Admission Date of Admission DATE: 04/13/18 TIME: 19:13 Reason for Consult Reason for Consult: IMPRESSION: Recurrent left side facial numbness x 3 months. Chest pain. UTI. CAD. [place], History. HTN. HLD. AFib. Dysphagia. RECOMMENDATIONS/PLAN: Brain MRI w/wo contrast to help rule out brain tumor. Lab: see orders. Treat medical and cardiac diseases. Discussed with her at bedside. HISTORY OF THE PRESENT ILLNESS: 82-y-old female patient with symptoms of chest pain for admission. She stated she has been having recurrent symptoms of numbness in her left side of face for about 3 months. Her UE and LE were no deficits. Headaches sometimes. PAST MEDICAL HISTORY Cardiovascular: AFIB (paroxysmal), HTN, [place] (2008), Hyperlipidemia, Other (LBBB ; venous insufficiency with RF catheter ablation bilateral GSV) Pulmonary: No pertinent hx CENTRAL NERVOUS SYSTEM: Other (none) GI: Diverticulosis, GERD Heme/Onc: No pertinent hx Hepatobiliary: No pertinent hx Psych: No pertinent hx Musculoskeletal: Osteoarthritis Rheumatologic: No pertinent hx Infectious disease: No pertinent hx ENT: Other (epistaxis associated with Xarelto) Renal/: No pertinent hx Endocrine: No pertinent hx Dermatology: No pertinent hx PAST SURGICAL HISTORY Hysterectomy, Colectomy (partial due to diverticulitis and polyps - 2012) FAMILY HISTORY Cancer, Heart Disease SOCIAL HISTORY Smoke: No ALCOHOL: none Drugs: None Lives: with Family ALLERGY: Codeine (Verified Allergy, Intermediate, diarrhea, vomiting, 05/17/14) I S O L A T I O N *CONTACT* (Verified Allergy, Unknown, 11/15/14) MEDICATIONS: Refer to [facility] REVIEW OF SYSTEMS: Constitutional: No malnutrition, weight loss, cachexia. Head: No traumatic brain or head injury. Skin: No edema, or rash. Ear: No infection, tinnitus. Eyes: No vision loss or color blindness. Nose: No bleeding or purulent discharges. Hearing: No hearing decrease. Neck: No injury. Breast: No history of cancer, masses,or discharges. Cardiac: CAD, [place], HTN, HLD. Pulmonary: No COPD. GI: No GI ulcer, GI bleeding. Urinary/genital: UTI. Endocrinologic: No cousin face, craniofacial dysmorphism, polydactyly. Skeletomuscular: No muscular atrophy, deformity. Neurological: see HP. Psychiatric: Denies drug use/abuse. Otherwise, not [id number] review of systems. PHYSICAL EXAMINATION: General appearance is in subacute distress. HEENT: Normocephalic and nontraumatic. Eyes, nose, ears, and throat are unremarkable. Neck is supple. No lymphadenopathy. No bruits are heard over the carotid artery. No crepitus. Cardiovascular: S1, S2, seemed regular rate and rhythm. Pulmonary: Clear to auscultation bilaterally. Abdomen: Bowel sounds are positive. Abdomen is soft, nontender, and nondistended. Extremities: No rash, lesions, or edema. No restriction of range of motion NEUROLOGICAL EXAMINATION: Awake. Oriented to time, place and person. PERRL. EOMI. CN: no focal findings. Muscle tone: within normal. Muscle strength: 5 DTR: 2 Plantar reflex: Neutral response bilaterally Gait: not examined in bed. Sensory exam: no abnormal findings. No cerebellar signs elicited. F-T-N test fine. Current Medications Current Medications Current Medications Aspirin (Children'S Aspirin) 243 mg 1X ONCE PO Last administered on 04/11/18at 15:39; Start 04/11/18 at 14:45; Stop 04/11/18 at 14:46; Status DC Nitroglycerin (Nitro-Bid Oint) 1 inch 1X ONCE TP Last administered on at 15:39; Start 04/11/18 at 14:45; Stop 04/11/18 at 14:46; Status DC Acetaminophen (Tylenol) 500 mg PRN Q6HRS PRN PO PAIN; Start 04/11/18 at 17:15 Amiodarone HCl (Cordarone) 100 mg DAILY PO Last administered on 04/13/18at 10:00 ; Start 04/12/18 at 09:00 Aspirin (Dana Aspirin) 325 mg DAILY PO ; Start 04/12/18 at 09:00; Stop at 09:00; Status Cancel Diltiazem HCl (Cardizem 24hr Cd) 120 mg HS PO ; Start 04/11/18 at 21:00; Stop at 21:15; Status DC Nitroglycerin (Nitrostat) 0.4 mg PRN Q1HR PRN SL CHEST PAIN Last administered on 04/11/18at 21:19; Start 04/11/18 at 17:15 Calcium/Vitamin D (Oscal D 500mg/ 200uts) 1 tab BIDWMEALS PO Last administered on 04/13/18 17:22; Start 04/11/18 at 18:00 Non-Formulary Medication (Levofloxacin (Levaquin)) 0.5 tab DAILY PO ; Start at 09:00; Status UNV Multivitamins (Thera M Plus) 1 tab DAILY PO Last administered on 04/13/18 10: 01; Start 04/12/18 at 09:00 Atorvastatin Calcium (Lipitor) 20 mg QHS PO Last administered on 04/12/18at 20: 52; Start 04/11/18 at 21:00 Rivaroxaban (Xarelto) 20 mg QHS PO ; Start 04/11/18 at 21:00; Stop 04/11/18 at 21:09; Status DC Losartan Potassium (Cozaar) 25 mg DAILY PO Last administered on 04/13/18 10:01 ; Start 04/12/18 at 09:00 Aspirin (Ecotrin) 81 mg DAILY PO Last administered on 04/13/18 10:01; Start at 09:00 Losartan Potassium (Cozaar) 25 mg DAILY PO ; Start 04/12/18 at 09:00; Status UNV Pantoprazole Sodium (Protonix) 40 mg DAILYAC PO Last administered on 04/13/18 10:00; Start 04/12/18 at 07:30 Apixaban (Eliquis) 2.5 mg HS PO Last administered on 04/11/18 21:18; Start at 21:00; Stop 04/12/18 at 11:53; Status DC Diltiazem HCl (Cardizem 24hr Cd) 120 mg DAILY PO Last administered on at 10:00; Start 04/12/18 at 09:00 Lactobacillus Rhamnosus (Culturelle) 1 cap BID PO Last administered on 10:01; Start 04/12/18 at 09:00 Apixaban (Eliquis) 2.5 mg BID PO Last administered on 04/13/18at 10:01; Start at 12:00 Info (Anti-Coagulation Monitoring By Pharmacy) 1 each PRN DAILY PRN MC SEE COMMENTS Last administered on 8/16/18at 15:17; Start 04/12/18 at 14:30 Regadenoson (Lexiscan) 0.4 mg 1X ONCE IV Last administered on 04/13/18at 08:48 ; Start 04/13/18 at 08:15; Stop 04/13/18 at 08:16; Status DC Ringer's Solution 1,000 ml @ 50 mls/hr Q20H IV ; Start 04/14/18 at 07:00; Stop 04/14/18 at 18:59 Ceftriaxone Sodium 1 gm/ Dextrose 50 ml @ 100 mls/hr Q24H IV ; Start 04/13/18 at 17:15; Status UNV Ceftriaxone Sodium (Rocephin) 1 gm Q24H IVP Last administered on 04/13/18at 17: 23; Start 04/13/18 at 18:00 Active Scripts Active Reported Probiotic (Lactobacillus Acidophilus) 1 Each Capsule 1 Each PO DAILY Eliquis (Apixaban) 2.5 Mg Tablet 2.5 Mg PO HS Prilosec Otc (Omeprazole Magnesium) 20 Mg Tablet.dr 1 Tab PO DAILY Losartan Potassium 25 Mg Tablet 25 Mg PO DAILY Aspir-Low (Aspirin) 81 Mg Tablet.dr 1 Tab PO DAILY Calcium + Vitamin D Tablet (Calcium Carbonate/Vitamin D3) 1 Each Tablet 1 Each PO BID Tylenol Extra Strength (Acetaminophen) 500 Mg Tablet 500 Mg PO PRN PRN Pravastatin Sodium 80 Mg Tablet 1 Tab PO HS Pacerone (Amiodarone Hcl) 200 Mg Tablet 100 Mg PO DAILY PRN NITROGLYCERIN SubLingual (Nitroglycerin) 0.4 Mg Tab.subl 1 Tab SL UD Multi-Day Vitamins (Multivitamin) 1 Each Tablet 1 Tab PO DAILY Diovan (Valsartan) 40 Mg Tablet 1 Tab PO DAILY Diltiazem 24HR Cd (Diltiazem Hcl) 120 Mg Cap.er.24h 1 Cap PO DAILY Allergies Allergies: Allergies Coded Allergies Type Severity Reaction Last Updated Verified codeine Allergy Intermediate diarrhea, vomiting 05/17/14 Yes I S O L A T I O N *CONTACT* Allergy Unknown 04/13/18 Yes ROS Review of System The patient denies any associated fevers, chills, headache, ear pain, rhinorrhea , sore throat, stiff neck, productive cough, chest pain, shortness of breath, back or flank pain, abdominal pain, nausea, vomiting, diarrhea, constipation, dysuria, rash, numbness, weakness, tingling, incontinence, difficulty ambulating, or diaphoresis. Physical Exam Physical Exam General: Well developed, well nourished, no acute distress, well appearing HEENT: Pupils equally round and reactive to light, EOMI, no discharge, normal conjunctiva Neck: Supple, no nuchal rigidity, no JVD, trachea midline, no tenderness Cardiac: RRR, no murmurs, no gallops, no rubs Chest/Lungs: CTAB, no wheeze, no rhonchi, no crackles Abdomen: soft, non-distended, no guarding, no peritoneal signs, non-tender Back: No tenderness Extremities: no edema, pulses intact, non-tender,capillary refill <3 sec bilateral upper and lower extremities, Neuro: Alert and oriented x 4, no focal deficits, normal speech Vitals Vitals: Vital Signs Date Time Temp Pulse Resp B/P (MAP) Pulse Ox O2 Delivery O2 Flow Rate FiO2 04/13/18 15:00 97.5 60 18 117/61 (79) 96 Room Air 97.5 Labs Labs Laboratory Tests Test 04/11/18 21:50 04/12/18 04:10 04/13/18 14:00 Troponin I Quantitative < 0.017 ng/mL (0.000-0.055) White Blood Count 3.3 x10^3/uL (4.0-11.0) Red Blood Count 4.15 x10^6/uL (3.50-5.40) Hemoglobin 9.2 g/dL (12.0-15.5) Hematocrit 28.5 % (36.0-47.0) Mean Corpuscular Volume 69 fL (79-100) Mean Corpuscular Hemoglobin 22 pg (25-35) Mean Corpuscular Hemoglobin Concent 32 g/dL (31-37) Red Cell Distribution Width 20.6 % (11.5-14.5) Platelet Count 112 x10^3/uL (140-400) Neutrophils (%) (Auto) 51 % (31-73) Lymphocytes (%) (Auto) 25 % (24-48) Monocytes (%) (Auto) 17 % (0-9) Eosinophils (%) (Auto) 6 % (0-3) Basophils (%) (Auto) 1 % (0-3) Neutrophils # (Auto) 1.7 x10^3uL (1.8-7.7) Lymphocytes # (Auto) 0.8 x10^3/uL (1.0-4.8) Monocytes # (Auto) 0.6 x10^3/uL (0.0-1.1) Eosinophils # (Auto) 0.2 x10^3/uL (0.0-0.7) Basophils # (Auto) 0.0 x10^3/uL (0.0-0.2) Sodium Level 135 mmol/L (136-145) Potassium Level 3.9 mmol/L (3.5-5.1) Chloride Level 104 mmol/L (98-107) Carbon Dioxide Level 24 mmol/L (21-32) Anion Gap 7 (6-14) Blood Urea Nitrogen 18 mg/dL (7-20) Creatinine 1.0 mg/dL (0.6-1.0) Estimated GFR (Cockcroft-Gault) 53.2 Glucose Level 83 mg/dL (70-99) Calcium Level 9.0 mg/dL (8.5-10.1) Triglycerides Level 46 mg/dL (0-150) Cholesterol Level 132 mg/dL (0-200) LDL Cholesterol, Calculated 62 mg/dL (0-100) VLDL Cholesterol, Calculated 9 mg/dL (0-40) Non-HDL Cholesterol Calculated 71 mg/dL (0-129) HDL Cholesterol 61 mg/dL (40-60) Cholesterol/HDL Ratio 2.2 Urine Collection Type Unknown Urine Color Yellow Urine Clarity Cloudy Urine pH 7.0 Urine Specific [place] 1.010 Urine Protein 30 mg/dL (NEG-TRACE) Urine Glucose (UA) Negative mg/dL (NEG) Urine Ketones (Stick) Negative mg/dL (NEG) Urine Blood Moderate (NEG) Urine Nitrite Positive (NEG) Urine Bilirubin Negative (NEG) Urine Urobilinogen Dipstick 0.2 mg/dL (0.2 mg/dL) Urine Leukocyte Esterase Large (NEG) Urine RBC 3-5 /HPF (0-2) Urine WBC Tntc /HPF (0-4) Urine Bacteria Many /HPF (0-FEW) Laboratory Tests Test 04/13/18 14:00 Urine Collection Type Unknown Urine Color Yellow Urine Clarity Cloudy Urine pH 7.0 Urine Specific [place] 1.010 Urine Protein 30 mg/dL (NEG-TRACE) Urine Glucose (UA) Negative mg/dL (NEG) Urine Ketones (Stick) Negative mg/dL (NEG) Urine Blood Moderate (NEG) Urine Nitrite Positive (NEG) Urine Bilirubin Negative (NEG) Urine Urobilinogen Dipstick 0.2 mg/dL (0.2 mg/dL) Urine Leukocyte Esterase Large (NEG) Urine RBC 3-5 /HPF (0-2) Urine WBC Tntc /HPF (0-4) Urine Bacteria Many /HPF (0-FEW) MARY CANTU MD Apr 13, 2018 19:25
[2018-04-13] MEDS: ATORVASTATIN CALCIUM 20 MG TABLET PO SCH (20:19)
[2018-04-13 23:06] VITALS: BP 99/53
[2018-04-14] VITALS (8 sets, daily range): BP systolic 112–155; BP diastolic 55–71
[2018-04-14] MEDS ORDERED: IV RINGERS,LACTATED 1000ML 1,000 ML IV SCH (07:00)
--- NOTE | 2018-04-14 08:56 | PDOC4 ---
Operative Note Operative Note EGD with dilation Meds propofol per anesthesia Pre-op dx dysphagia/foreign body sensation Post-op dx proximal Schatzki ring s/p 54 FR Nunez dilation non-erosive gastritis Plan advance diet release home per primary LIZ ROSEN MD Apr 14, 2018 08:56
[2018-04-14] MEDS ORDERED: PROPOFOL 20 ML IV ONE (09:26)
[2018-04-14] MEDS ORDERED: LIDOCAINE 2% PF Vial for OR 5 ML VIAL. ONE (09:26)
[2018-04-14] MEDS: PANTOPRAZOLE 40 MG TABLET.DR. PO SCH (11:21)
[2018-04-14] MEDS: AMIODARONE HCL 200 MG TABLET. PO SCH (11:21)
[2018-04-14] MEDS: LACTOBACILLUS RHAMNOSUS GG 1 CAPSULE. PO SCH (11:23)
[2018-04-14] MEDS: CALCIUM CARB/VIT D3 500/200 TABLET. PO SCH (11:23)
[2018-04-14] MEDS: MULTIVITAMIN with MINERAL TABLET. PO SCH (11:23)
[2018-04-14] MEDS: LOSARTAN POTASSIUM 25 MG TABLET. PO SCH (11:24)
[2018-04-14] MEDS: ASPIRIN ENTERIC COATED 81 MG TABLET.DR. PO SCH (11:24)
[2018-04-14] MEDS: APIXABAN 2.5 MG TABLET. PO SCH (11:24)
--- NOTE | 2018-04-14 12:37 | PDOC ---
PROGRESS NOTES Assessment Assessment Recurrent left side facial numbness x 3 months. Chest pain. UTI. CAD. [place], History. HTN. HLD. AFib. Dysphagia. RECOMMENDATIONS/PLAN: Brain MRI w/wo contrast to help rule out CVA and brain tumor. Treat medical and cardiac diseases. Discussed with her daughter at bedside on 04/14/18. HISTORY OF THE PRESENT ILLNESS: 82-y-old female patient with symptoms of chest pain for admission. She stated she has been having recurrent symptoms of numbness in her left side of face for about 3 months. Her UE and LE were no deficits. Headaches sometimes. PAST MEDICAL HISTORY Cardiovascular: AFIB (paroxysmal), HTN, [place] (2009), Hyperlipidemia, Other (LBBB ; venous insufficiency with RF catheter ablation bilateral GSV) Pulmonary: No pertinent hx CENTRAL NERVOUS SYSTEM: Other (none) GI: Diverticulosis, GERD Heme/Onc: No pertinent hx Hepatobiliary: No pertinent hx Psych: No pertinent hx Musculoskeletal: Osteoarthritis Rheumatologic: No pertinent hx Infectious disease: No pertinent hx ENT: Other (epistaxis associated with Xarelto) Renal/: No pertinent hx Endocrine: No pertinent hx Dermatology: No pertinent hx PAST SURGICAL HISTORY Hysterectomy, Colectomy (partial due to diverticulitis and polyps - 2012) FAMILY HISTORY Cancer, Heart Disease SOCIAL HISTORY Smoke: No ALCOHOL: none Drugs: None Lives: with Family ALLERGY: Codeine (Verified Allergy, Intermediate, diarrhea, vomiting, 05/17/14) I S O L A T I O N *CONTACT* (Verified Allergy, Unknown, 11/15/14) MEDICATIONS: Refer to [facility] REVIEW OF SYSTEMS: Constitutional: No malnutrition, weight loss, cachexia. Head: No traumatic brain or head injury. Skin: No edema, or rash. Ear: No infection, tinnitus. Eyes: No vision loss or color blindness. Nose: No bleeding or purulent discharges. Hearing: No hearing decrease. Neck: No injury. Breast: No history of cancer, masses,or discharges. Cardiac: CAD, [place], HTN, HLD. Pulmonary: No COPD. GI: No GI ulcer, GI bleeding. Urinary/genital: UTI. Endocrinologic: No cousin face, craniofacial dysmorphism, polydactyly. Skeletomuscular: No muscular atrophy, deformity. Neurological: see HP. Psychiatric: Denies drug use/abuse. Otherwise, not [id number] review of systems. PHYSICAL EXAMINATION: General appearance is in subacute distress. HEENT: Normocephalic and nontraumatic. Eyes, nose, ears, and throat are unremarkable. Neck is supple. No lymphadenopathy. No bruits are heard over the carotid artery. No crepitus. Cardiovascular: S1, S2, seemed regular rate and rhythm. Pulmonary: Clear to auscultation bilaterally. Abdomen: Bowel sounds are positive. Abdomen is soft, nontender, and nondistended. Extremities: No rash, lesions, or edema. No restriction of range of motion NEUROLOGICAL EXAMINATION: Awake. Oriented to time, place and person. PERRL. EOMI. CN: no focal findings. Muscle tone: within normal. Muscle strength: 5 DTR: 2 Plantar reflex: Neutral response bilaterally Gait: not examined in bed. Sensory exam: no abnormal findings. No cerebellar signs elicited. F-T-N test fine. Objective Objective Vital Signs Date Time Temp Pulse Resp B/P (MAP) Pulse Ox O2 Delivery O2 Flow Rate FiO2 04/14/18 11:31 65 152/68 (96) 96 Room Air 04/14/18 09:12 98.7 18 98.7 04/14/18 08:57 2 Intake and Output 04/14/18 07:00 Intake Total 840 ml Balance 840 ml Intake Oral 840 ml # Voids 6 # Bowel Movements 1 Vitals Signs Vitals VS - Last 72 Hours, by Label Date Time Temp Pulse Resp B/P (MAP) Pulse Ox O2 Delivery O2 Flow Rate FiO2 04/14/18 11:31 65 152/68 (96) 96 Room Air 04/14/18 11:24 61 120/56 04/14/18 11:21 61 120/56 04/14/18 11:19 59 120/56 (77) 98 Room Air 04/14/18 11:01 59 155/69 (97) 97 Room Air 04/14/18 10:46 61 149/71 (97) 98 Room Air 04/14/18 10:32 58 138/60 (86) 97 Room Air 04/14/18 09:12 98.7 58 18 105/52 99 Room Air 98.7 04/14/18 09:00 61 120/56 04/14/18 08:57 98.7 53 16 104/51 99 Room Air 2 98.7 04/14/18 07:56 98.7 66 16 97 98.7 04/14/18 07:52 Room Air 04/14/18 07:00 98.4 58 16 123/62 (82) 97 Room Air 98.4 04/14/18 03:32 98.3 62 16 112/55 (74) 96 Room Air 98.3 04/13/18 23:06 98.4 60 16 99/53 (68) 96 Room Air 98.4 04/13/18 20:15 Room Air 04/13/18 19:15 98.2 63 18 104/52 (69) 98 Room Air 98.2 04/13/18 15:00 97.5 60 18 117/61 (79) 96 Room Air 97.5 04/13/18 11:13 97.9 67 18 136/63 (87) 99 Room Air 97.9 04/13/18 10:01 75 138/66 04/13/18 10:00 75 138/66 04/13/18 10:00 75 138/66 04/13/18 08:43 Room Air 04/13/18 07:36 97.7 75 20 138/66 (90) 95 Room Air 97.7 Laboratory Laboratory Laboratory Tests Test 04/13/18 14:00 04/13/18 23:40 Urine Collection Type Unknown Urine Color Yellow Urine Clarity Cloudy Urine pH 7.0 Urine Specific [place] 1.010 Urine Protein 30 mg/dL (NEG-TRACE) Urine Glucose (UA) Negative mg/dL (NEG) Urine Ketones (Stick) Negative mg/dL (NEG) Urine Blood Moderate (NEG) Urine Nitrite Positive (NEG) Urine Bilirubin Negative (NEG) Urine Urobilinogen Dipstick 0.2 mg/dL (0.2 mg/dL) Urine Leukocyte Esterase Large (NEG) Urine RBC 3-5 /HPF (0-2) Urine WBC Tntc /HPF (0-4) Urine Bacteria Many /HPF (0-FEW) Vitamin B12 Level 793 pg/mL (247-911) Thyroid Stimulating Hormone (TSH) 2.217 uIU/mL (0.358-3.74) Medication Medications Current Medications Ceftriaxone Sodium 1 gm/ Dextrose 50 ml @ 100 mls/hr Q24H IV ; Start 04/13/18 at 17:15; Status UNV Ceftriaxone Sodium (Rocephin) 1 gm Q24H IVP Last administered on 04/13/18at 17: 23; Start 04/13/18 at 18:00 Lidocaine HCl (Lidocaine Pf 2% Vial) 5 ml STK-MED ONCE .ROUTE ; Start 04/14/18 at 09:26; Stop 04/14/18 at 09:27; Status DC Propofol 20 ml @ As Directed STK-MED ONCE IV ; Start 04/14/18 at 09:26; Stop at 09:27; Status DC Ringer's Solution 1,000 ml @ 50 mls/hr Q20H IV Last administered on 04/14/18at 07:55; Start 04/14/18 at 07:00; Stop 04/14/18 at 18:59 Comment Review of Relevant I have reviewed the following items nacho (where applicable) has been applied. MARY CANTU MD Apr 14, 2018 12:37
[2018-04-14] MEDS ORDERED: CIPR500T94 PO (13:42)
--- NOTE | 2018-04-14 13:44 | PDOC3 ---
Discharge Summary Visit Information Date of Admission: Apr 11, 2018 Date of Discharge: Apr 14, 2018 Admitting Diagnosis Comment: 1. CHEST PAIN sec to esph structure, mild 2. HX A-FIB 3, HLP 4. HTN Final Diagnosis Problems Medical Problems: (1) Chest pain Status: Acute Brief Hospital Course Allergies Allergies Coded Allergies Type Severity Reaction Last Updated Verified codeine Allergy Intermediate diarrhea, vomiting 05/17/14 Yes I S O L A T I O N *CONTACT* Allergy Unknown 04/13/18 Yes Vital Signs Vital Signs Date Time Temp Pulse Resp B/P (MAP) Pulse Ox O2 Delivery O2 Flow Rate FiO2 04/14/18 11:31 65 152/68 (96) 96 Room Air 04/14/18 09:12 98.7 18 98.7 04/14/18 08:57 2 Lab Results Laboratory Tests Test 04/13/18 14:00 04/13/18 23:40 Urine Collection Type Unknown Urine Color Yellow Urine Clarity Cloudy Urine pH 7.0 Urine Specific [place] 1.010 Urine Protein 30 mg/dL (NEG-TRACE) Urine Glucose (UA) Negative mg/dL (NEG) Urine Ketones (Stick) Negative mg/dL (NEG) Urine Blood Moderate (NEG) Urine Nitrite Positive (NEG) Urine Bilirubin Negative (NEG) Urine Urobilinogen Dipstick 0.2 mg/dL (0.2 mg/dL) Urine Leukocyte Esterase Large (NEG) Urine RBC 3-5 /HPF (0-2) Urine WBC Tntc /HPF (0-4) Urine Bacteria Many /HPF (0-FEW) Vitamin B12 Level 793 pg/mL (247-911) Thyroid Stimulating Hormone (TSH) 2.217 uIU/mL (0.358-3.74) Laboratory Tests Test 04/13/18 14:00 04/13/18 23:40 Urine Collection Type Unknown Urine Color Yellow Urine Clarity Cloudy Urine pH 7.0 Urine Specific [place] 1.010 Urine Protein 30 mg/dL (NEG-TRACE) Urine Glucose (UA) Negative mg/dL (NEG) Urine Ketones (Stick) Negative mg/dL (NEG) Urine Blood Moderate (NEG) Urine Nitrite Positive (NEG) Urine Bilirubin Negative (NEG) Urine Urobilinogen Dipstick 0.2 mg/dL (0.2 mg/dL) Urine Leukocyte Esterase Large (NEG) Urine RBC 3-5 /HPF (0-2) Urine WBC Tntc /HPF (0-4) Urine Bacteria Many /HPF (0-FEW) Vitamin B12 Level 793 pg/mL (247-911) Thyroid Stimulating Hormone (TSH) 2.217 uIU/mL (0.358-3.74) Brief Hospital Course Ms. Vee is a 82 old white female who was admitted for chest pain. She does have history of A. fib. She is doing clinically well and has been cleared by cardiology. She underwent EGD with dilatation with almost resolution of her symptoms. Hence this is GI related. She has some tingling numbness in the face or fingers hence neurology got involved and is ordering an MRI. If MRI is negative she will go home with her home cardiac meds. No new meds started.. 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 Information Condition at Discharge: Improved, Stable Disposition/Orders: D/C to Home Scheduled Apixaban (Eliquis) 2.5 Mg Tablet, 2.5 MG PO HS, (Reported) Entered as Reported by: Prince Donato on 04/11/182103 Last Action: Continued on 04/11/182104 by Prince Donato Aspirin (Aspir-Low) 81 Mg Tablet.dr, 1 TAB PO DAILY, #30 Ref 3 (Reported) Entered as Reported by: Prince Donato on 04/11/182100 Last Action: Continued on 04/11/182104 by Prince Donato Calcium Carbonate/Vitamin D3 (Calcium + Vitamin D Tablet) 1 Each Tablet, 1 EACH PO BID, (Reported) Entered as Reported by: CHUCK ANDERSON on 05/17/14441 Last Action: Converted on 04/11/181705 by CHEN ODELL MD Ciprofloxacin Hcl (Cipro) 500 Mg Tablet, 1 TAB PO BID, #14 Prescribed by: JAYY CHOW on 04/14/18 1342 Diltiazem Hcl (Diltiazem 24HR Cd) 120 Mg Cap.er.24h, 1 CAP PO DAILY, #90 Ref 1 ( Reported) Entered as Reported by: CHUCK ANDERSON on 05/17/14441 Last Action: Edited on 04/11/182100 by Prince Donato Lactobacillus Acidophilus (Probiotic) 1 Each Capsule, 1 EACH PO DAILY, (Reported ) Entered as Reported by: DHARMESH SMITH on 04/12/18836 Last Action: Converted on 04/12/18837 by DHARMESH SMITH Losartan Potassium (Losartan Potassium) 25 Mg Tablet, 25 MG PO DAILY, (Reported) Entered as Reported by: Prince Donato on 04/11/182100 Last Action: Continued on 04/11/182104 by Prince Donato Multivitamin (Multi-Day Vitamins) 1 Each Tablet, 1 TAB PO DAILY, #30 (Reported) Entered as Reported by: CHUCK ANDERSON on 05/17/14441 Last Action: Converted on 04/11/181705 by CHEN ODELL MD Nitroglycerin (NITROGLYCERIN SubLingual) 0.4 Mg Tab.subl, 1 TAB SL UD, #25 Ref 3 (Reported) Entered as Reported by: CHUCK ANDERSON on 05/17/14441 Last Action: Continued on 04/11/181705 by CHEN ODELL MD Omeprazole Magnesium (Prilosec Otc) 20 Mg Tablet.dr, 1 TAB PO DAILY, #30 Ref 3 ( Reported) Entered as Reported by: Prince Donato on 04/11/182100 Last Action: Converted on 04/11/182104 by Prince Donato Pravastatin Sodium (Pravastatin Sodium) 80 Mg Tablet, 1 TAB PO HS, #30 Ref 5 ( Reported) Entered as Reported by: CHUCK ANDERSON on 05/17/14441 Last Action: Converted on 04/11/181705 by CHEN ODELL MD Valsartan (Diovan) 40 Mg Tablet, 1 TAB PO DAILY, #90 Ref 1 (Reported) Entered as Reported by: CHUCK ANDERSON on 05/17/14441 Last Action: Converted on 04/11/181705 by CHEN ODELL MD Scheduled PRN Acetaminophen (Tylenol Extra Strength) 500 Mg Tablet, 500 MG PO PRN PRN for PAIN , (Reported) Entered as Reported by: CHUCK ANDERSON on 05/17/14441 Last Action: Continued on 04/11/181705 by CHEN ODELL MD Amiodarone Hcl (Pacerone) 200 Mg Tablet, 100 MG PO DAILY PRN for HYPERTENSION, SEE COMMENTS, (Reported) Entered as Reported by: CHUCK ANDERSON on 05/17/14 0442 Last Action: Continued on 04/11/18 1706 by MD GERALDO MAGALLON CHERRIE Y MD Apr 14, 2018 13:44
[2018-04-14] MEDS ORDERED: GADOBUTROL 7.5 MMOL/7.5 ML VIAL IV ONE (13:45)
[2018-04-14] MEDS: ANTI-COAG MONITOR BY PHARMACY. MC PRN (14:58)
--- NOTE | 2018-04-14 14:58 | RAD ---
MRI of the Brain without and with Contrast 04/14/2018 Clinical History: Recurrent left-sided facial numbness. Technique: Unenhanced T1-weighted sagittal and axial and FLAIR, T2-weighted, gradient echo and diffusion-weighted axial images of the brain were obtained. After the intravenous administration of 6 cc of Gadavist, enhanced T1-weighted axial and coronal images of the brain were obtained. Findings: No previous studies are available for comparison. There is generalized parenchymal atrophy. Patchy and small scattered areas of abnormally increased signal intensity are seen within the periventricular and subcortical white matter of both cerebral hemispheres on the FLAIR and T2-weighted images consistent with areas of mild small vessel ischemic disease. No acute parenchymal abnormality is seen. No abnormal area of contrast enhancement is noted. No extra-axial fluid collection is seen. There is no MRI evidence of acute ischemia/infarction. Mild mucosal thickening is seen scattered throughout the ethmoid air cells bilaterally. Normal flow voids are seen within the major vascular structures surrounding the brain parenchyma. Impression: No acute parenchymal abnormality is seen. Electronically signed by: Nile Barrientos MD (04/14/2018 2:54 PM) [id number]
== END 2018-04-14 16:41 | disposition home or self-care (01) | DRG 392 ==
LOC: ER 14:17 → 6 SOUTH 15:25
PROVIDERS: ADMIT Family Medicine; ATTEND Family Medicine
PROC: 0D758ZZ Dilation of Esophagus, Via Natural or Artificial Opening Endoscopic (ICD-10-PCS; principal; 2018-04-11)
DX: K22.2 Esophageal obstruction (principal); D61.818 Other pancytopenia; N39.0 Urinary tract infection, site not specified; K29.70 Gastritis, unspecified, without bleeding; E78.5 Hyperlipidemia, unspecified; I10 Essential (primary) hypertension; I25.10 Atherosclerotic heart disease of native coronary artery without angina pectoris; I48.0 Paroxysmal atrial fibrillation; K21.9 Gastro-esophageal reflux disease without esophagitis; K57.90 Diverticulosis of intestine, part unspecified, without perforation or abscess without bleeding; M19.90 Unspecified osteoarthritis, unspecified site; I25.2 Old myocardial infarction; Z79.01 Long term (current) use of anticoagulants; Z79.82 Long term (current) use of aspirin; Z90.710 Acquired absence of both cervix and uterus; Z88.8 Allergy status to other drugs, medicaments and biological substances; Z90.49 Acquired absence of other specified parts of digestive tract; Z88.5 Allergy status to narcotic agent; Z82.49 Family history of ischemic heart disease and other diseases of the circulatory system
CPT/HCPCS: 36415; 70553; 71045; 78452; 80048; 80053; 80061; 81001; 82553; 82607; 83690; 83735; 83880; 84443; 84484; 85025; 87086; 93005; 93017; 93306; 96374; 96375; 96376; A9500; A9585; J0696; J2001; J2704; J2785; J7120; 92610; 99285-25

== ENCOUNTER → 2018-06-08 | Outpatient (CLI) | payer MEDICARE, BC ==
[2018-04-14 15:00] VITALS: BP 121/58
[~2018-06-08] MED LIST changes: +APIX2.5T PO; +ASPI81TA50 PO; +BARIUM SULFATE 340 GM SUSPENSION. PO ONE; +BARIUM SULFATE 60% 355 ML SUSP PO ONE; +CIPR500T94 PO; +LACT1CAP6 PO; +LOSA25TA5 PO; +OMEP20TA63 PO; +SIMETHICONE/SOD BICARB/CITRIC ACID PACKET. PO ONE
--- NOTE | 2018-06-08 11:49 | RAD ---
Esophagram, 06/08/2018: History: Dysphasia The swallowing mechanism was examined fluoroscopically while the patient ingested thin and thick liquid barium. 3.5 minutes of fluoroscopy time was utilized. 9 static and dynamic fluoroscopic spot sequences were recorded. No esophageal mass or obstruction to flow of the barium through the cervical esophagus was seen. The patient did aspirate a small amount of the thickened barium during the initial stages of the exam. The pharyngeal peristalsis appears weak with moderate vallecular and piriform sinus residue. Peristaltic activity in the thoracic esophagus is also decreased with some stasis of the barium particularly in the recumbent position. No thoracic esophageal mass or obstructive process is evident. No hiatal hernia or gastroesophageal reflux was observed. IMPRESSION: 1. Weak pharyngeal peristalsis with vallecular and piriform sinus residue. 2. One episode of nancy aspiration occurred during the exam. 3. Decreased peristaltic activity in the thoracic esophagus. 4. A video dysphasia evaluation is suggested.
== END | disposition home or self-care (01) ==
LOC: RAD 09:59
PROVIDERS: ATTEND Family Medicine
DX: R13.10 Dysphagia, unspecified (principal)
CPT/HCPCS: 74220

== ENCOUNTER → 2019-03-09 | Outpatient (CLI) | payer MEDICARE, BC ==
[2018-04-14 15:00] VITALS: BP 121/58
[~2019-03-09] MED LIST changes: -BARIUM SULFATE 340 GM SUSPENSION. PO ONE; -BARIUM SULFATE 60% 355 ML SUSP PO ONE; -DILT120C80 PO; +DILT120C85 PO; -LOSA25TA5 PO; +LOSA25TA54 PO; -SIMETHICONE/SOD BICARB/CITRIC ACID PACKET. PO ONE
--- NOTE | 2019-03-09 14:38 | KCIC ---
Bilateral lower extremity arterial Doppler ultrasound HISTORY: Leg cramps. TECHNIQUE: Color Doppler, grayscale and duplex analysis performed of the right and left lower extremity arterial structures, from the common femoral artery through the runoff vessels. COMPARISON: None are available All velocity measurements are in centimeters per second. Right leg: Triphasic waveforms throughout. No visualized plaque. Velocities range from 47 through 109. No critical segmental velocity elevation is seen. Left leg: Triphasic waveforms throughout. No visible plaque. Elevation of velocity at the posterior tibial artery of 187. The popliteal artery velocity proximal to this is 80. IMPRESSION: 1. Velocity elevation at the left posterior tibial artery raising the question of a proximal stenosis. 2. Otherwise no evidence of significant atherosclerotic disease. Electronically signed by: Steve Fountain MD (03/09/2019 2:35 PM) [id number]
== END | disposition home or self-care (01) ==
LOC: KCIC US 13:00
PROVIDERS: ATTEND Family Medicine
DX: R25.2 Cramp and spasm (principal); I25.10 Atherosclerotic heart disease of native coronary artery without angina pectoris
CPT/HCPCS: 93925

== ENCOUNTER → 2019-04-26 | Outpatient (CLI) | payer MEDICARE, BC ==
[2018-04-14 15:00] VITALS: BP 121/58
--- NOTE | 2019-04-26 15:45 | KCIC ---
KNEE LEFT 3V 04/26/2019 12:00 AM INDICATION: Chronic left knee pain COMPARISON: None available. TECHNIQUE: 3 views of the left knee are provided. FINDINGS: There is no acute fracture or dislocation. Bone mineralization is within normal limits. Mild medial femorotibial joint space narrowing. Mild marginal osteophytosis. Mild to moderate patellofemoral joint space narrowing with marginal osteophytosis. Regional soft tissues are within normal limits. There is no soft tissue gas or osseous erosion. IMPRESSION: No acute fracture or dislocation. Mild osteoarthrosis of the knee with mild medial femorotibial and mild to moderate patellofemoral joint space narrowing. Electronically signed by: Marietta Chase MD (04/26/2019 3:43 PM) [id number]
== END | disposition home or self-care (01) ==
LOC: KCIC 11:57
PROVIDERS: ATTEND Family Medicine
DX: M25.662 Stiffness of left knee, not elsewhere classified (principal); M17.12 Unilateral primary osteoarthritis, left knee; G89.29 Other chronic pain
CPT/HCPCS: 73562

== ENCOUNTER → 2019-07-24 | Outpatient (CLI) | payer MEDICARE, BC ==
[2018-04-14 15:00] VITALS: BP 121/58
[~2019-07-24] MED LIST changes: -DILT120C85 PO; +DILT120C99 PO
--- NOTE | 2019-07-24 08:37 | CARD ---
MR#: [id number] Date of Study: 07/24/2019 Ordering Physician: MATTHEW MARIE, Referring Physician: Lucy ROBERTS: Michela Wilkins APPROVED REPORT EXAM: Two-dimensional and M-mode echocardiogram with Doppler and color Doppler. Other Information Quality : AverageHR: 71bpm INDICATION PAF 2D DIMENSIONS RVDd2.5 (2.9-3.5cm)Left Atrium(2D)3.8 (1.6-4.0cm) IVSd1.0 (0.7-1.1cm)Aortic Root(2D)2.2 (2.0-3.7cm) LVDd4.5 (3.9-5.9cm)LVOT Diameter2.1 (1.8-2.4cm) PWd0.7 (0.7-1.1cm)LVDs2.9 (2.5-4.0cm) FS (%) 35.5 %SV59.7 ml LVEF(%)65.1 (>50%) Aortic Valve AoV Peak Enzo.134.4cm/sAoV VTI29.3cm AO Peak GR.7.2mmHgLVOT Peak Enzo.90.5cm/s AO Mean GR.4mmHgAVA (VMAX)2.43cm2 Mitral Valve MV E Qcbcrusk88.0cm/sMV E Peak Gr.6mmHg MV DECEL [id number] A Ytiypzxh42.0cm/s MV E Mean Gr.3mmHgE/A Ratio0.9 Pulmonary Valve PV Peak Weoextov623.8cm/s Tricuspid Valve TR P. Fjzojmtg521ji/sRAP ZEXXIYFZ4idPl TR Peak Gr.62enCuJTKJ17uxBt Pulmonary Vein S1 Hzbacppv31.7cm/sD2 Lspfyuct98.4cm/s LEFT VENTRICLE The left ventricle is normal size. There is normal left ventricular wall thickness. The left ventricu lar systolic function is mildly reduced. EF 45-50%. Septal motion suggestive of prior CABG and conduc tion defect. Transmitral Doppler flow pattern is Grade I-abnormal relaxation pattern. RIGHT VENTRICLE The right ventricle is normal size. The right ventricular systolic function is normal. ATRIA The left atrium size is normal. The right atrium size is normal. The interatrial septum is intact wit h no evidence for an atrial septal defect or patent foramen ovale as noted on 2-D or Doppler imaging. AORTIC VALVE The aortic valve is thickened but opens well. Doppler and Color Flow revealed trace aortic regurgitat ion. There is no significant aortic valvular stenosis. MITRAL VALVE The mitral valve is thickened but opens well. There is no evidence of mitral valve prolapse. There is no mitral valve stenosis. Doppler and Color-flow revealed mild mitral regurgitation. TRICUSPID VALVE The tricuspid valve is normal in structure and function. Doppler and Color Flow revealed mild tricusp id regurgitation with an estimated PAP of 31 mmHg. There is no tricuspid valve stenosis. PULMONIC VALVE The pulmonic valve is not well visualized. Doppler and Color Flow revealed no pulmonic valvular regur gitation. There is no pulmonic valvular stenosis. GREAT VESSELS The aortic root is normal in size. The ascending aorta is normal in size. The IVC is normal in size a nd collapses >50% with inspiration. PERICARDIAL EFFUSION There is no pleural effusion. There is no evidence of significant pericardial effusion. Critical Notification Critical Value: No <Conclusion> The left ventricular systolic function is mildly reduced. EF 45-50%. Septal motion suggestive of prior CABG and conduction defect. Doppler and Color-flow revealed mild mitral regurgitation. Signed by : Hilton Colunga, Electronically Approved : 07/24/2019 08:37:01
== END | disposition home or self-care (01) ==
LOC: ECHO 07:24
PROVIDERS: ATTEND Internal Medicine Cardiovascular Disease
DX: I08.1 Rheumatic disorders of both mitral and tricuspid valves (principal); I48.0 Paroxysmal atrial fibrillation
CPT/HCPCS: 93306

== ENCOUNTER 2019-08-27 14:00 | Observation (INO) | payer MEDICARE, BC ==
[~2019-08-27] VITALS: Ht 157.5 cm; Wt 61.7 kg
[~2019-08-27 14:00] MED LIST changes: +DOXY100C2 PO; +METO-239 PO
--- NOTE | 2019-08-27 16:33 | PHYS DOC ---
Past Medical History Past Medical History: A-Fib, Bronchitis, Hypertension, [place], Other Additional Past Medical Histor: LEUKOPENIA, COLON PROLASPE, L bundle branch block (EVELIO DELACRUZ APRN) Past Surgical History: Hysterectomy, Other Additional Past Surgical Histo: COLON RESECTION, cataract removal (EVELIO DELACRUZ APRN) Alcohol Use: None Drug Use: None (EVELIO DELACRUZ APRN) Adult General Chief Complaint Chief Complaint: DIZZY/LIGHT HEADED HPI HPI Patient is a 83 year old female, accompanied by her family, who presents to the emergency department with complaints of feeling lightheaded. Patient states that she recently started taking metoprolol 12.5 mg tablets once daily on for her Afib. She also complains of nausea, and generalized fatigue. She states that for the last 2 days she has been having a stabbing pain in her left chest that comes and goes. At times the chest pain radiates to her left arm. She denies any shortness of breath, lower extremity swelling, low back pain, vomiting, diarrhea, abdominal pain, palpitations, or wheezing. Patient states when she was admitted to the hospital from August 19 to the she was treated for a urinary tract infection. Patient states she took the doxycycline as prescribed for her UTI. She currently denies any fever, dysuria, hematuria, low back pain, or increased urinary frequency at this time. Patient also denies any numbness, tingling, weakness, or vision changes. Currently, she rates her discomfort a 4 out of 10 on the pain scale, she denies any alleviating factors. (EVELIO DELACRUZ APRN) Review of Systems Review of Systems Constitutional: Denies fever or chills [] Eyes: Denies change in visual acuity, redness, or eye pain [] HENT: Denies nasal congestion or sore throat [] Respiratory: Denies cough or shortness of breath [] Cardiovascular: No additional information not addressed in HPI [] GI: Denies abdominal pain, vomiting, bloody stools or diarrhea; reports nausea : Denies dysuria or hematuria [] Musculoskeletal: Denies back pain or joint pain [] Integument: Denies rash or skin lesions [] Neurologic: Denies headache, focal weakness or sensory changes; see HPI [] Endocrine: Denies polyuria or polydipsia [] Complete systems were reviewed and found to be within normal limits, except as documented in this note. (EVELIO DELACRUZ APRN) Allergies Allergies Allergies Coded Allergies Type Severity Reaction Last Updated Verified codeine Allergy Intermediate diarrhea, vomiting 05/17/14 Yes I S O L A T I O N *CONTACT* Allergy Unknown 04/13/18 Yes (JOSE MARTIN MOORE DO) Physical Exam Physical Exam Constitutional: Well developed, well nourished, no acute distress, non-toxic appearance. [] HENT: Normocephalic, atraumatic, bilateral external ears normal, oropharynx moist, no oral exudates, nose normal. [] Eyes: PERRLA, EOMI, conjunctiva normal, no discharge. [] Neck: Normal range of motion, no stridor. [] Cardiovascular:Heart rate regularly irregular rhythm, no murmur [] Lungs & Thorax: Bilateral breath sounds clear to auscultation, Respirations even and unlabored, no retractions, no respiratory distress [] Abdomen: Bowel sounds normal, soft, no tenderness, no masses, no pulsatile masses. [] Skin: Warm, dry, no erythema, no rash. [] Back: No tenderness Extremities: No cyanosis, ROM intact, no edema. [] Neurologic: Alert and oriented X 3, no focal deficits noted. [] Psychologic: Affect normal, judgement normal, mood normal. [] (EVELIO DELACRUZ APRN) Current Patient Data Vital Signs Vital Signs Date Time Temp Pulse Resp B/P (MAP) Pulse Ox O2 Delivery O2 Flow Rate FiO2 08/27/19 17:45 72 18 98 08/27/19 16:10 98.4 106/57 (73) Room Air 98.4 (JOSE MARTIN MOORE DO) Lab Values Laboratory Tests Test 08/27/19 16:35 08/27/19 17:00 White Blood Count 3.9 x10^3/uL (4.0-11.0) L Red Blood Count 4.64 x10^6/uL (3.50-5.40) Hemoglobin 11.1 g/dL (12.0-15.5) L Hematocrit 35.8 % (36.0-47.0) L Mean Corpuscular Volume 77 fL (79-100) L Mean Corpuscular Hemoglobin 24 pg (25-35) L Mean Corpuscular Hemoglobin Concent 31 g/dL (31-37) Red Cell Distribution Width 17.8 % (11.5-14.5) H Platelet Count 159 x10^3/uL (140-400) Neutrophils (%) (Auto) 56 % (31-73) Lymphocytes (%) (Auto) 23 % (24-48) L Monocytes (%) (Auto) 15 % (0-9) H Eosinophils (%) (Auto) 6 % (0-3) H Basophils (%) (Auto) 1 % (0-3) Neutrophils # (Auto) 2.2 x10^3/uL (1.8-7.7) Lymphocytes # (Auto) 0.9 x10^3/uL (1.0-4.8) L Monocytes # (Auto) 0.6 x10^3/uL (0.0-1.1) Eosinophils # (Auto) 0.2 x10^3/uL (0.0-0.7) Basophils # (Auto) 0.0 x10^3/uL (0.0-0.2) Platelet Estimate Adequate (ADEQUATE) Platelet Clumps, EDTA Large Platelets Occ Hypochromasia Slight Anisocytosis Slight Prothrombin Time 14.2 SEC (11.7-14.0) H Prothrombin Time INR 1.1 (0.8-1.1) Activated Partial Thromboplast Time 27 SEC (24-38) Sodium Level 138 mmol/L (136-145) Potassium Level 4.3 mmol/L (3.5-5.1) Chloride Level 102 mmol/L (98-107) Carbon Dioxide Level 24 mmol/L (21-32) Anion Gap 12 (6-14) Blood Urea Nitrogen 28 mg/dL (7-20) H Creatinine 1.1 mg/dL (0.6-1.0) H Estimated GFR (Cockcroft-Gault) 47.6 BUN/Creatinine Ratio 25 (6-20) H Glucose Level 103 mg/dL (70-99) H Calcium Level 9.2 mg/dL (8.5-10.1) Magnesium Level 1.9 mg/dL (1.8-2.4) Total Bilirubin 0.4 mg/dL (0.2-1.0) Aspartate Amino Transferase (AST) 17 U/L (15-37) Alanine Aminotransferase (ALT) 17 U/L (14-59) Alkaline Phosphatase 92 U/L (46-116) Creatine Kinase 20 U/L (26-192) L Creatine Kinase MB (Mass) 0.6 ng/mL (0.0-3.6) Creatine Kinase MB Relative Index 3.0 % (0-4) Troponin I Quantitative < 0.017 ng/mL (0.000-0.055) VI-Rnr-X-Type Natriuretic Peptide 992 pg/mL (0-449) H Total Protein 6.7 g/dL (6.4-8.2) Albumin 3.4 g/dL (3.4-5.0) Albumin/Globulin Ratio 1.0 (1.0-1.7) Urine Collection Type Unknown Urine Color Red Urine Clarity Turbid Urine pH 5.5 Urine Specific [facility] 1.020 Urine Protein 100 mg/dL (NEG-TRACE) Urine Glucose (UA) Negative mg/dL (NEG) Urine Ketones (Stick) 15 mg/dL (NEG) Urine Blood Large (NEG) Urine Nitrite Positive (NEG) Urine Bilirubin Large (NEG) Urine Urobilinogen Dipstick 1.0 mg/dL (0.2 mg/dL) Urine Leukocyte Esterase Large (NEG) Urine RBC Tntc /HPF (0-2) Urine WBC 20-40 /HPF (0-4) Urine Squamous Epithelial Cells Occ /LPF Urine Bacteria Moderate /HPF (0-FEW) Laboratory Tests 08/27/19 16:35 Laboratory Tests 08/27/19 16:35 (JOSE MARTIN MOORE DO) Lab Values Laboratory Tests Test 08/27/19 16:35 08/27/19 17:00 White Blood Count 3.9 x10^3/uL (4.0-11.0) L Red Blood Count 4.64 x10^6/uL (3.50-5.40) Hemoglobin 11.1 g/dL (12.0-15.5) L Hematocrit 35.8 % (36.0-47.0) L Mean Corpuscular Volume 77 fL (79-100) L Mean Corpuscular Hemoglobin 24 pg (25-35) L Mean Corpuscular Hemoglobin Concent 31 g/dL (31-37) Red Cell Distribution Width 17.8 % (11.5-14.5) H Platelet Count 159 x10^3/uL (140-400) Neutrophils (%) (Auto) 56 % (31-73) Lymphocytes (%) (Auto) 23 % (24-48) L Monocytes (%) (Auto) 15 % (0-9) H Eosinophils (%) (Auto) 6 % (0-3) H Basophils (%) (Auto) 1 % (0-3) Neutrophils # (Auto) 2.2 x10^3/uL (1.8-7.7) Lymphocytes # (Auto) 0.9 x10^3/uL (1.0-4.8) L Monocytes # (Auto) 0.6 x10^3/uL (0.0-1.1) Eosinophils # (Auto) 0.2 x10^3/uL (0.0-0.7) Basophils # (Auto) 0.0 x10^3/uL (0.0-0.2) Platelet Estimate Adequate (ADEQUATE) Platelet Clumps, EDTA Large Platelets Occ Hypochromasia Slight Anisocytosis Slight Prothrombin Time 14.2 SEC (11.7-14.0) H Prothrombin Time INR 1.1 (0.8-1.1) Activated Partial Thromboplast Time 27 SEC (24-38) Sodium Level 138 mmol/L (136-145) Potassium Level 4.3 mmol/L (3.5-5.1) Chloride Level 102 mmol/L (98-107) Carbon Dioxide Level 24 mmol/L (21-32) Anion Gap 12 (6-14) Blood Urea Nitrogen 28 mg/dL (7-20) H Creatinine 1.1 mg/dL (0.6-1.0) H Estimated GFR (Cockcroft-Gault) 47.6 BUN/Creatinine Ratio 25 (6-20) H Glucose Level 103 mg/dL (70-99) H Calcium Level 9.2 mg/dL (8.5-10.1) Magnesium Level 1.9 mg/dL (1.8-2.4) Total Bilirubin 0.4 mg/dL (0.2-1.0) Aspartate Amino Transferase (AST) 17 U/L (15-37) Alanine Aminotransferase (ALT) 17 U/L (14-59) Alkaline Phosphatase 92 U/L (46-116) Creatine Kinase 20 U/L (26-192) L Creatine Kinase MB (Mass) 0.6 ng/mL (0.0-3.6) Creatine Kinase MB Relative Index 3.0 % (0-4) Troponin I Quantitative < 0.017 ng/mL (0.000-0.055) WN-Hpq-Z-Type Natriuretic Peptide 992 pg/mL (0-449) H Total Protein 6.7 g/dL (6.4-8.2) Albumin 3.4 g/dL (3.4-5.0) Albumin/Globulin Ratio 1.0 (1.0-1.7) Urine Collection Type Unknown Urine Color Red Urine Clarity Turbid Urine pH 5.5 Urine Specific [facility] 1.020 Urine Protein 100 mg/dL (NEG-TRACE) Urine Glucose (UA) Negative mg/dL (NEG) Urine Ketones (Stick) 15 mg/dL (NEG) Urine Blood Large (NEG) Urine Nitrite Positive (NEG) Urine Bilirubin Large (NEG) Urine Urobilinogen Dipstick 1.0 mg/dL (0.2 mg/dL) Urine Leukocyte Esterase Large (NEG) Urine RBC Tntc /HPF (0-2) Urine WBC 20-40 /HPF (0-4) Urine Squamous Epithelial Cells Occ /LPF Urine Bacteria Moderate /HPF (0-FEW) Laboratory Tests 08/27/19 16:35 Laboratory Tests 08/27/19 16:35 (EVELIO DELACRUZ APRN) EKG EKG 1627- afib rate 66, no STEMI, non-specific intraventricular block read by Dr. Moore. [] (EVELIO DELACRUZ APRN) Radiology/Procedures Radiology/Procedures [] (EVELIO DELACRUZ APRN) Radiology/Procedures PROCEDURE: CHEST AP ONLY CHEST AP ONLY Clinical History: Chest pain Technique: AP view of the chest was obtained at 08/27/2019 4:26 PM. Comparison: August 27, 2019. Findings: The cardiomediastinal silhouette is normal. The pulmonary vasculature is normal. There is a calcified granuloma in the right lung base. The lungs are hyperinflated. Impression: No evidence of an acute cardiopulmonary process. Electronically signed by: Cesar Barrow III, MD (08/27/2019 5:22 PM) [facility] (JOSE MARTIN MOORE DO) Course & Med Decision Making Course & Med Decision Making Pertinent Labs and Imaging studies reviewed. (See chart for details) Patient was given 1 g of Rocephin in the emergency department for treatment of UTI. CBC revealed a white blood cell count 3.9, hemoglobin 11.1, hematocrit 35.9 the story clear patient has history of anemia, denies any current blood loss; 8014.2 INR 1.1; EMP revealed Bielen of 28, creatinine of 1.1, glucose 103, CK of 20, troponin less than 0.017, BNP 992, family reported that patient had been given too much fluid during her previous hospital stay; UA continued to be positive for nitrates with large amount of leuk esterase too many to count red blood cells, 20-40 white blood cells and occasional squamous cell. Rest x-ray revealed no acute findings EKG was A. fib with controlled rate, no ST elevation or changes. 1812- Spoke with Dr. Herrera who is the admitting physician, and care was assumed following discussion of patient. Patient's vital signs stable. Patient remains afebrile, appears nontoxic, respirations even and unlabored. Patient will be admitted to the CVC floor. Patient's case and plan of care also discussed with Dr. Moore [] (EVELIO DELACRUZ APRN) Dragon Disclaimer Dragon Disclaimer This electronic medical record was generated, in whole or in part, using a voice recognition dictation system. (EVELIO DELACRUZ APRN) Departure Departure Impression: Primary Impression: Chest pain Additional Impressions: Lightheadedness UTI (urinary tract infection) Disposition: ADMITTED INPATIENT Admitting Physician: PIPER Gold) (JOSE MARTIN MOORE DO) Condition: STABLE Referrals: CAMERON TAYLOR MD (PCP) Attending Signature Attending Signature I have reviewed the PA/[employer]'s note and plan of care. I was available for consultation as needed during the patient's visit in the emergency department. I agree with the clinical impression, plan, and disposition. (JOSE MARTIN MOORE DO) Problem Qualifiers Primary Impression: Chest pain Chest pain type: unspecified Qualified Codes: R07.9 - Chest pain, unsp ecified Additional Impressions: UTI (urinary tract infection) Urinary tract infection type: acute cystitis Hematuria presence: without hematuria Qualified Codes: N30.00 - Acute cystitis without hematuria EVELIO DELACRUZ APRN Aug 27, 2019 16:33 JOSE MARTIN MOORE DO Aug 28, 2019 06:36
[2019-08-27 16:56] LABS: PROTHROMBIN TIME PATIENT 14.2 SEC (11.7-14.0)
[2019-08-27 17:04] LABS: BASO % 1 % (0-3); EOS # 0.2 x10^3/uL (0.0-0.7); EOS % 6 % (0-3); HEMATOCRIT 35.8 % (36.0-47.0); HEMOGLOBIN 11.1 g/dL (12.0-15.5); LYMPH # 0.9 x10^3/uL (1.0-4.8); LYMPH % 23 % (24-48); MEAN CORPUSCULAR HEMOGLOBIN 24 pg (25-35); MEAN CORPUSCULAR HGB CONC 31 g/dL (31-37); MEAN CORPUSCULAR VOLUME 77 fL (79-100); MONO # 0.6 x10^3/uL (0.0-1.1); MONO % 15 % (0-9); NEUT # 2.2 x10^3/uL (1.8-7.7); NEUT % 56 % (31-73); PLATELET COUNT 159 x10^3/uL (140-400); RED BLOOD COUNT 4.64 x10^6/uL (3.50-5.40); RED CELL DISTRIBUTION WIDTH 17.8 % (11.5-14.5); WHITE BLOOD COUNT 3.9 x10^3/uL (4.0-11.0)
[2019-08-27 17:10] LABS: BILIRUBIN,URINE LARGE (NEG); CLARITY,URINE TURBID; COLOR,URINE RED; NITRITE,URINE POSITIVE (NEG); PH,URINE 5.5; PROTEIN,URINE 100 mg/dL (NEG-TRACE)
[2019-08-27 17:12] LABS: CALCIUM 9.2 mg/dL (8.5-10.1); CREATININE 1.1 mg/dL (0.6-1.0); GFR 47.6; POTASSIUM 4.3 mmol/L (3.5-5.1)
[2019-08-27 17:17] LABS: ALBUMIN 3.4 g/dL (3.4-5.0); MAGNESIUM 1.9 mg/dL (1.8-2.4); TOTAL BILIRUBIN 0.4 mg/dL (0.2-1.0); TOTAL PROTEIN 6.7 g/dL (6.4-8.2)
[2019-08-27 17:21] LABS: BACTERIA,URINE MODERATE /HPF (0-FEW); RBC,URINE TNTC /HPF (0-2); SQUAMOUS EPITHELIAL CELL,UR OCC /LPF; WBC,URINE 20-40 /HPF (0-4)
--- NOTE | 2019-08-27 17:25 | RAD ---
CHEST AP ONLY Clinical History: Chest pain Technique: AP view of the chest was obtained at 08/27/2019 4:26 PM. Comparison: August 27, 2019. Findings: The cardiomediastinal silhouette is normal. The pulmonary vasculature is normal. There is a calcified granuloma in the right lung base. The lungs are hyperinflated. Impression: No evidence of an acute cardiopulmonary process. Electronically signed by: Cesar Barrow III, MD (08/27/2019 5:22 PM) [facility]
[2019-08-27 17:31] LABS: PLT ESTIMATE ADEQUATE (ADEQUATE)
[2019-08-27 17:32] LABS: ANISOCYTOSIS SLIGHT; HYPOCHROMIA SLIGHT
[2019-08-27] MEDS ORDERED: cefTRIAXone IV Push 1 GM VIAL. IVP ONE (18:30)
--- NOTE | 2019-08-27 19:24 | PDOC1 ---
History and Physical Date of Admission: Date of Admission DATE: 08/27/19 TIME: 19:23 Chief Complaint: Problems: (1) Lower GI bleed (2) Chest pain (3) Esophageal stricture (4) Sepsis Chief Complain: Lightheadedness History of Present Illness: HPI: This is an elderly female who is been treated for multiple UTIs Now she's lightheaded states she was recently started on low-dose metoprolol Doesn't think she is tolerating the metoprolol We checked a urinalysis and she does have a large amount of leukocyte esterase and 20-40 white cells Suspect she may have a resistant bacteria Kari patient consult infectious disease and cardiology Past Medical/Surgical History: PMH/PSH: Past Medical History: A-Fib, Bronchitis, Hypertension, PA, Other Additional Past Medical Histor: LEUKOPENIA, COLON PROLASPE, L bundle branch block Past Surgical History: Hysterectomy, Other Additional Past Surgical Histo: COLON RESECTION, cataract removal Alcohol Use: None Drug Use: None Allergies: Allergies: Coded Allergies: codeine (Verified Allergy, Intermediate, diarrhea, vomiting, 05/17/14) I S O L A T I O N *CONTACT* (Verified Allergy, Unknown, 04/13/18) ESBL Family History: Family History: CAD Social History: Social Hisoty: She does not drink smoke or take drugs she is Current Medications: Current Medications Current Medications Ceftriaxone Sodium (Rocephin) 1 gm 1X ONCE IVP Last administered on 08/27/19at 18:58; Start 08/27/19 at 18:30; Stop 08/27/19 at 18:31; Status DC Active Scripts Active Doxycycline Hyclate 100 Mg Capsule 1 Cap PO BID 5 Days Metoprolol Succinate ( Xl ) (Metoprolol Succinate) 25 Mg Tab.er.24h 12.5 Mg PO DAILY 30 Days Reported Probiotic (Lactobacillus Acidophilus) 1 Each Capsule 1 Each PO DAILY Eliquis (Apixaban) 2.5 Mg Tablet 2.5 Mg PO BID Prilosec Otc (Omeprazole Magnesium) 20 Mg Tablet.dr 1 Tab PO DAILY Losartan Potassium (Losartan Potassium) 25 Mg Tablet 25 Mg PO DAILY Aspir-Low (Aspirin) 81 Mg Tablet.dr 1 Tab PO DAILY Calcium + Vitamin D Tablet (Calcium Carbonate/Vitamin D3) 1 Each Tablet 1 Each PO BID Tylenol Extra Strength (Acetaminophen) 500 Mg Tablet 500 Mg PO PRN PRN Pravastatin Sodium 80 Mg Tablet 1 Tab PO HS Pacerone (Amiodarone Hcl) 200 Mg Tablet 100 Mg PO DAILY PRN NITROGLYCERIN SubLingual (Nitroglycerin) 0.4 Mg Tab.subl 1 Tab SL UD Multi-Day Vitamins (Multivitamin) 1 Each Tablet 1 Tab PO DAILY Diovan (Valsartan) 40 Mg Tablet 1 Tab PO DAILY Diltiazem 24HR Cd (Diltiazem Hcl) 120 Mg Cap.er.24h 1 Cap PO DAILY ROS: Review of Systems Review of System REVIEW OF SYSTEMS: GENERAL: Denies weakness SKIN: No bruising, hair changes or rashes. EYES: No blurred, double or loss of vision. NOSE AND THROAT: No history of nosebleeds, hoarseness or sore throat. HEART: No history of palpitations, chest pain or shortness of breath on exertion. LUNGS: Denies cough, hemoptysis, wheezing or shortness of breath. GASTROINTESTINAL: Denies changes in appetite, nausea, vomiting, diarrhea or constipation. GENITOURINARY: No history of frequency, urgency, hesitancy or nocturia. NEUROLOGIC: Denies history of numbness, tingling, tremor or weakness. PSYCHIATRIC: No history of panic, anxiety or depression. ENDOCRINE: No history of heat or cold intolerance, polyuria or polydipsia. EXTREMITIES: Denies muscle weakness, joint pain, pain on walking or stiffness. Physical Exam: Vital Signs: Vital Signs Date Time Temp Pulse Resp B/P (MAP) Pulse Ox O2 Delivery O2 Flow Rate FiO2 08/27/19 16:10 98.4 65 16 106/57 (73) 98 Room Air 98.4 Physcial Exam: GEN: No apparent distress. Alert and oriented HEENT: Normal cephalic, atraumatic, external auditory canals are patent EYES: Extraocular muscles are intact, pupil are equally round and reactive to light and accommodation MUSCULOSKELETAL: Well developed , well nourished, good range of motion ENDOCRINE: Ny thyromegaly was palpated LYMPHATICS: No cervical chain or axillary nodes were noted HEMATOPOIETIC: No bruising NECK: Supple, no JVD, no thyromegaly was noted LUNGS: Clear to auscultation in all lung shepherd without rhonchi or wheezing HEART: RRR, S!, S2 present. Peripheral pulses intact, no obvious murmurs noted ABDOMEN: Soft, nontender. Positive bowel sounds, no organomegaly, normal bowel sounds EXTREMITIES: Without clubbing, cyanosis, or edema. Pedal pulses intact. Negative Homans sign NEUROLOGIC: Normal speech and tone. A&O x 3, moves all extremities, no obvious focal deficits PSYCHIATRIC: Normal affect, normal mood. Stable SKIN: No ulcerations or rashes, good skin turgor, no jaundice VASCULAR: Good capillary refill, neurovascular bundle appears to be intact Labs: Labs: Laboratory Tests Test 08/27/19 16:35 08/27/19 17:00 White Blood Count 3.9 x10^3/uL (4.0-11.0) Red Blood Count 4.64 x10^6/uL (3.50-5.40) Hemoglobin 11.1 g/dL (12.0-15.5) Hematocrit 35.8 % (36.0-47.0) Mean Corpuscular Volume 77 fL (79-100) Mean Corpuscular Hemoglobin 24 pg (25-35) Mean Corpuscular Hemoglobin Concent 31 g/dL (31-37) Red Cell Distribution Width 17.8 % (11.5-14.5) Platelet Count 159 x10^3/uL (140-400) Neutrophils (%) (Auto) 56 % (31-73) Lymphocytes (%) (Auto) 23 % (24-48) Monocytes (%) (Auto) 15 % (0-9) Eosinophils (%) (Auto) 6 % (0-3) Basophils (%) (Auto) 1 % (0-3) Neutrophils # (Auto) 2.2 x10^3/uL (1.8-7.7) Lymphocytes # (Auto) 0.9 x10^3/uL (1.0-4.8) Monocytes # (Auto) 0.6 x10^3/uL (0.0-1.1) Eosinophils # (Auto) 0.2 x10^3/uL (0.0-0.7) Basophils # (Auto) 0.0 x10^3/uL (0.0-0.2) Platelet Estimate Adequate (ADEQUATE) Platelet Clumps, EDTA Large Platelets Occ Hypochromasia Slight Anisocytosis Slight Prothrombin Time 14.2 SEC (11.7-14.0) Prothromb Time International Ratio 1.1 (0.8-1.1) Activated Partial Thromboplast Time 27 SEC (24-38) Sodium Level 138 mmol/L (136-145) Potassium Level 4.3 mmol/L (3.5-5.1) Chloride Level 102 mmol/L (98-107) Carbon Dioxide Level 24 mmol/L (21-32) Anion Gap 12 (6-14) Blood Urea Nitrogen 28 mg/dL (7-20) Creatinine 1.1 mg/dL (0.6-1.0) Estimated GFR (Cockcroft-Gault) 47.6 BUN/Creatinine Ratio 25 (6-20) Glucose Level 103 mg/dL (70-99) Calcium Level 9.2 mg/dL (8.5-10.1) Magnesium Level 1.9 mg/dL (1.8-2.4) Total Bilirubin 0.4 mg/dL (0.2-1.0) Aspartate Amino Transf (AST/SGOT) 17 U/L (15-37) Alanine Aminotransferase (ALT/SGPT) 17 U/L (14-59) Alkaline Phosphatase 92 U/L (46-116) Creatine Kinase 20 U/L (26-192) Creatine Kinase MB (Mass) 0.6 ng/mL (0.0-3.6) Creatine Kinase MB Relative Index 3.0 % (0-4) Troponin I Quantitative < 0.017 ng/mL (0.000-0.055) CM-Upv-X-Type Natriuretic Peptide 992 pg/mL (0-449) Total Protein 6.7 g/dL (6.4-8.2) Albumin 3.4 g/dL (3.4-5.0) Albumin/Globulin Ratio 1.0 (1.0-1.7) Urine Collection Type Unknown Urine Color Red Urine Clarity Turbid Urine pH 5.5 Urine Specific [place] 1.020 Urine Protein 100 mg/dL (NEG-TRACE) Urine Glucose (UA) Negative mg/dL (NEG) Urine Ketones (Stick) 15 mg/dL (NEG) Urine Blood Large (NEG) Urine Nitrite Positive (NEG) Urine Bilirubin Large (NEG) Urine Urobilinogen Dipstick 1.0 mg/dL (0.2 mg/dL) Urine Leukocyte Esterase Large (NEG) Urine RBC Tntc /HPF (0-2) Urine WBC 20-40 /HPF (0-4) Urine Squamous Epithelial Cells Occ /LPF Urine Bacteria Moderate /HPF (0-FEW) Laboratory Tests Test 08/27/19 16:35 08/27/19 17:00 White Blood Count 3.9 x10^3/uL (4.0-11.0) Red Blood Count 4.64 x10^6/uL (3.50-5.40) Hemoglobin 11.1 g/dL (12.0-15.5) Hematocrit 35.8 % (36.0-47.0) Mean Corpuscular Volume 77 fL (79-100) Mean Corpuscular Hemoglobin 24 pg (25-35) Mean Corpuscular Hemoglobin Concent 31 g/dL (31-37) Red Cell Distribution Width 17.8 % (11.5-14.5) Platelet Count 159 x10^3/uL (140-400) Neutrophils (%) (Auto) 56 % (31-73) Lymphocytes (%) (Auto) 23 % (24-48) Monocytes (%) (Auto) 15 % (0-9) Eosinophils (%) (Auto) 6 % (0-3) Basophils (%) (Auto) 1 % (0-3) Neutrophils # (Auto) 2.2 x10^3/uL (1.8-7.7) Lymphocytes # (Auto) 0.9 x10^3/uL (1.0-4.8) Monocytes # (Auto) 0.6 x10^3/uL (0.0-1.1) Eosinophils # (Auto) 0.2 x10^3/uL (0.0-0.7) Basophils # (Auto) 0.0 x10^3/uL (0.0-0.2) Platelet Estimate Adequate (ADEQUATE) Platelet Clumps, EDTA Large Platelets Occ Hypochromasia Slight Anisocytosis Slight Prothrombin Time 14.2 SEC (11.7-14.0) Prothromb Time International Ratio 1.1 (0.8-1.1) Activated Partial Thromboplast Time 27 SEC (24-38) Sodium Level 138 mmol/L (136-145) Potassium Level 4.3 mmol/L (3.5-5.1) Chloride Level 102 mmol/L (98-107) Carbon Dioxide Level 24 mmol/L (21-32) Anion Gap 12 (6-14) Blood Urea Nitrogen 28 mg/dL (7-20) Creatinine 1.1 mg/dL (0.6-1.0) Estimated GFR (Cockcroft-Gault) 47.6 BUN/Creatinine Ratio 25 (6-20) Glucose Level 103 mg/dL (70-99) Calcium Level 9.2 mg/dL (8.5-10.1) Magnesium Level 1.9 mg/dL (1.8-2.4) Total Bilirubin 0.4 mg/dL (0.2-1.0) Aspartate Amino Transf (AST/SGOT) 17 U/L (15-37) Alanine Aminotransferase (ALT/SGPT) 17 U/L (14-59) Alkaline Phosphatase 92 U/L (46-116) Creatine Kinase 20 U/L (26-192) Creatine Kinase MB (Mass) 0.6 ng/mL (0.0-3.6) Creatine Kinase MB Relative Index 3.0 % (0-4) Troponin I Quantitative < 0.017 ng/mL (0.000-0.055) IR-Fbj-O-Type Natriuretic Peptide 992 pg/mL (0-449) Total Protein 6.7 g/dL (6.4-8.2) Albumin 3.4 g/dL (3.4-5.0) Albumin/Globulin Ratio 1.0 (1.0-1.7) Urine Collection Type Unknown Urine Color Red Urine Clarity Turbid Urine pH 5.5 Urine Specific [place] 1.020 Urine Protein 100 mg/dL (NEG-TRACE) Urine Glucose (UA) Negative mg/dL (NEG) Urine Ketones (Stick) 15 mg/dL (NEG) Urine Blood Large (NEG) Urine Nitrite Positive (NEG) Urine Bilirubin Large (NEG) Urine Urobilinogen Dipstick 1.0 mg/dL (0.2 mg/dL) Urine Leukocyte Esterase Large (NEG) Urine RBC Tntc /HPF (0-2) Urine WBC 20-40 /HPF (0-4) Urine Squamous Epithelial Cells Occ /LPF Urine Bacteria Moderate /HPF (0-FEW) Assessment/Plan Assessment/Plan Recurrent UTI and lightheadedness Plan Consult infectious disease consult cardiology Home meds DVT prophylaxis Full code Await further subspecialist input SUSANNAH HARDY III DO Aug 27, 2019 19:24
[2019-08-27 20:09] VITALS: BP 125/89
[2019-08-27] MEDS ORDERED: METO-239 PO (20:43)
--- NOTE | 2019-08-27 21:00 | NUR ---
Pt arrived to unit per wheelchair accompanied by her daughter. Pt assisted to bed with standby assistance. Pt oriented to room and surroundings vs obtained and stable. poc explained to pt assessment completed vss pt denied pain at this time will resume care and continue to monitor pt. call light placed in reach.
[2019-08-27] MEDS ORDERED: NITROGLYCERIN SUBLINGUAL 0.4 MG BOTTLE OF 25. SL PRN (21:15)
[2019-08-27] MEDS ORDERED: ACETAMINOPHEN 500 MG TABLET PO PRN (21:15)
[2019-08-27] MEDS ORDERED: AMIODARONE HCL 200 MG TABLET. PO PRN (21:15)
[2019-08-27] MEDS: APIXABAN 2.5 MG TABLET. PO SCH (22:02)
[2019-08-27] MEDS ORDERED: LOSARTAN POTASSIUM 25 MG TABLET. PO ONE (22:45)
[2019-08-27] MEDS ORDERED: ATORVASTATIN CALCIUM 20 MG TABLET PO SCH (23:00)
[2019-08-27 23:10] VITALS: BP 113/62
[2019-08-28 02:34] VITALS: BP 100/49
--- NOTE | 2019-08-28 04:22 | EKG ---
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
--- NOTE | 2019-08-28 04:23 | EKG ---
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
[2019-08-28 07:00] VITALS: BP 95/56
[2019-08-28] MEDS ORDERED: PANTOPRAZOLE 40 MG TABLET.DR. PO SCH (07:30)
[2019-08-28 07:57] LABS: CHOLESTEROL/HDL RATIO 2.4
[2019-08-28] MEDS ORDERED: CALCIUM CARB/VIT D3 500/200 TABLET. PO SCH (08:00)
[2019-08-28] MEDS ORDERED: ASPIRIN ENTERIC COATED 81 MG TABLET.DR. PO SCH (08:00)
[2019-08-28] MEDS ORDERED: LACTOBACILLUS RHAMNOSUS GG 1 CAPSULE. PO SCH (09:00)
[2019-08-28] MEDS ORDERED: cefTRIAXone IV Push 1 GM VIAL. IVP SCH (09:00)
[2019-08-28] MEDS ORDERED: LOSARTAN POTASSIUM 25 MG TABLET. PO SCH ×2 (09:00→21:00)
[2019-08-28] MEDS ORDERED: NON FORMULARY ITEM (Valsartan (Diovan) 1 TAB) PO SCH (09:00)
[2019-08-28] MEDS ORDERED: MULTIVITAMIN with MINERAL TABLET. PO SCH (09:00)
--- NOTE | 2019-08-28 10:00 | PDOC ---
PROGRESS NOTES Chief Complaint Chief Complaint UTI, symptomatic MIld hematuria on eliquis for cardiac reasons Microcytic anemia GEriatric, fall risk Lightheadedness CHest dc History of Present Illness History of Present Illness HAs uTI, with sxs Just had renal sono SHe feels better today Asks about eating and going home WAs on eliquis at home for cardiac reasons PLAN: Await cards riounds Await renal SONO CONT UTI tx URine cx Add pt ot Vitals Vitals Vital Signs Date Time Temp Pulse Resp B/P (MAP) Pulse Ox O2 Delivery O2 Flow Rate FiO2 08/28/19 07:00 97.8 78 16 95/56 (69) 97 Room Air 97.8 Physical Exam General: Alert, Oriented X3, Cooperative, No acute distress Heart: Regular rate, Normal S1, Normal S2, No murmurs Lungs: Clear Abdomen: Normal bowel sounds, Soft, No tenderness Extremities: No clubbing, No cyanosis, No edema Skin: No rashes, No breakdown Labs LABS Laboratory Tests Test 08/27/19 16:35 08/27/19 17:00 08/28/19 00:05 08/28/19 06:01 White Blood Count 3.9 x10^3/uL (4.0-11.0) Red Blood Count 4.64 x10^6/uL (3.50-5.40) Hemoglobin 11.1 g/dL (12.0-15.5) Hematocrit 35.8 % (36.0-47.0) Mean Corpuscular Volume 77 fL (79-100) Mean Corpuscular Hemoglobin 24 pg (25-35) Mean Corpuscular Hemoglobin Concent 31 g/dL (31-37) Red Cell Distribution Width 17.8 % (11.5-14.5) Platelet Count 159 x10^3/uL (140-400) Neutrophils (%) (Auto) 56 % (31-73) Lymphocytes (%) (Auto) 23 % (24-48) Monocytes (%) (Auto) 15 % (0-9) Eosinophils (%) (Auto) 6 % (0-3) Basophils (%) (Auto) 1 % (0-3) Neutrophils # (Auto) 2.2 x10^3/uL (1.8-7.7) Lymphocytes # (Auto) 0.9 x10^3/uL (1.0-4.8) Monocytes # (Auto) 0.6 x10^3/uL (0.0-1.1) Eosinophils # (Auto) 0.2 x10^3/uL (0.0-0.7) Basophils # (Auto) 0.0 x10^3/uL (0.0-0.2) Platelet Estimate Adequate (ADEQUATE) Platelet Clumps, EDTA Large Platelets Occ Hypochromasia Slight Anisocytosis Slight Prothrombin Time 14.2 SEC (11.7-14.0) Prothromb Time International Ratio 1.1 (0.8-1.1) Activated Partial Thromboplast Time 27 SEC (24-38) Sodium Level 138 mmol/L (136-145) Potassium Level 4.3 mmol/L (3.5-5.1) Chloride Level 102 mmol/L (98-107) Carbon Dioxide Level 24 mmol/L (21-32) Anion Gap 12 (6-14) Blood Urea Nitrogen 28 mg/dL (7-20) Creatinine 1.1 mg/dL (0.6-1.0) Estimated GFR (Cockcroft-Gault) 47.6 BUN/Creatinine Ratio 25 (6-20) Glucose Level 103 mg/dL (70-99) Calcium Level 9.2 mg/dL (8.5-10.1) Magnesium Level 1.9 mg/dL (1.8-2.4) Total Bilirubin 0.4 mg/dL (0.2-1.0) Aspartate Amino Transf (AST/SGOT) 17 U/L (15-37) Alanine Aminotransferase (ALT/SGPT) 17 U/L (14-59) Alkaline Phosphatase 92 U/L (46-116) Creatine Kinase 20 U/L (26-192) Creatine Kinase MB (Mass) 0.6 ng/mL (0.0-3.6) Creatine Kinase MB Relative Index 3.0 % (0-4) Troponin I Quantitative < 0.017 ng/mL (0.000-0.055) < 0.017 ng/mL (0.000-0.055) < 0.017 ng/mL (0.000-0.055) AW-Qpj-D-Type Natriuretic Peptide 992 pg/mL (0-449) Total Protein 6.7 g/dL (6.4-8.2) Albumin 3.4 g/dL (3.4-5.0) Albumin/Globulin Ratio 1.0 (1.0-1.7) Urine Collection Type Unknown Urine Color Red Urine Clarity Turbid Urine pH 5.5 Urine Specific [place] 1.020 Urine Protein 100 mg/dL (NEG-TRACE) Urine Glucose (UA) Negative mg/dL (NEG) Urine Ketones (Stick) 15 mg/dL (NEG) Urine Blood Large (NEG) Urine Nitrite Positive (NEG) Urine Bilirubin Large (NEG) Urine Urobilinogen Dipstick 1.0 mg/dL (0.2 mg/dL) Urine Leukocyte Esterase Large (NEG) Urine RBC Tntc /HPF (0-2) Urine WBC 20-40 /HPF (0-4) Urine Squamous Epithelial Cells Occ /LPF Urine Bacteria Moderate /HPF (0-FEW) Triglycerides Level 40 mg/dL (0-150) Cholesterol Level 133 mg/dL (0-200) LDL Cholesterol, Calculated 70 mg/dL (0-100) VLDL Cholesterol, Calculated 8 mg/dL (0-40) Non-HDL Cholesterol Calculated 78 mg/dL (0-129) HDL Cholesterol 55 mg/dL (40-60) Cholesterol/HDL Ratio 2.4 Review of Systems Review of Systems as per hPI< all else is neg Assessment and Plan Assessmemt and Plan Problems Medical Problems: (1) Chest pain Status: Acute (2) Lightheadedness Status: Acute (3) UTI (urinary tract infection) Status: Acute Comment Review of Relevant I have reviewed the following items nacho (where applicable) has been applied. Labs Laboratory Tests Test 08/27/19 16:35 08/27/19 17:00 08/28/19 00:05 08/28/19 06:01 White Blood Count 3.9 x10^3/uL (4.0-11.0) Red Blood Count 4.64 x10^6/uL (3.50-5.40) Hemoglobin 11.1 g/dL (12.0-15.5) Hematocrit 35.8 % (36.0-47.0) Mean Corpuscular Volume 77 fL (79-100) Mean Corpuscular Hemoglobin 24 pg (25-35) Mean Corpuscular Hemoglobin Concent 31 g/dL (31-37) Red Cell Distribution Width 17.8 % (11.5-14.5) Platelet Count 159 x10^3/uL (140-400) Neutrophils (%) (Auto) 56 % (31-73) Lymphocytes (%) (Auto) 23 % (24-48) Monocytes (%) (Auto) 15 % (0-9) Eosinophils (%) (Auto) 6 % (0-3) Basophils (%) (Auto) 1 % (0-3) Neutrophils # (Auto) 2.2 x10^3/uL (1.8-7.7) Lymphocytes # (Auto) 0.9 x10^3/uL (1.0-4.8) Monocytes # (Auto) 0.6 x10^3/uL (0.0-1.1) Eosinophils # (Auto) 0.2 x10^3/uL (0.0-0.7) Basophils # (Auto) 0.0 x10^3/uL (0.0-0.2) Platelet Estimate Adequate (ADEQUATE) Platelet Clumps, EDTA Large Platelets Occ Hypochromasia Slight Anisocytosis Slight Prothrombin Time 14.2 SEC (11.7-14.0) Prothromb Time International Ratio 1.1 (0.8-1.1) Activated Partial Thromboplast Time 27 SEC (24-38) Sodium Level 138 mmol/L (136-145) Potassium Level 4.3 mmol/L (3.5-5.1) Chloride Level 102 mmol/L (98-107) Carbon Dioxide Level 24 mmol/L (21-32) Anion Gap 12 (6-14) Blood Urea Nitrogen 28 mg/dL (7-20) Creatinine 1.1 mg/dL (0.6-1.0) Estimated GFR (Cockcroft-Gault) 47.6 BUN/Creatinine Ratio 25 (6-20) Glucose Level 103 mg/dL (70-99) Calcium Level 9.2 mg/dL (8.5-10.1) Magnesium Level 1.9 mg/dL (1.8-2.4) Total Bilirubin 0.4 mg/dL (0.2-1.0) Aspartate Amino Transf (AST/SGOT) 17 U/L (15-37) Alanine Aminotransferase (ALT/SGPT) 17 U/L (14-59) Alkaline Phosphatase 92 U/L (46-116) Creatine Kinase 20 U/L (26-192) Creatine Kinase MB (Mass) 0.6 ng/mL (0.0-3.6) Creatine Kinase MB Relative Index 3.0 % (0-4) Troponin I Quantitative < 0.017 ng/mL (0.000-0.055) < 0.017 ng/mL (0.000-0.055) < 0.017 ng/mL (0.000-0.055) VX-Dli-A-Type Natriuretic Peptide 992 pg/mL (0-449) Total Protein 6.7 g/dL (6.4-8.2) Albumin 3.4 g/dL (3.4-5.0) Albumin/Globulin Ratio 1.0 (1.0-1.7) Urine Collection Type Unknown Urine Color Red Urine Clarity Turbid Urine pH 5.5 Urine Specific [place] 1.020 Urine Protein 100 mg/dL (NEG-TRACE) Urine Glucose (UA) Negative mg/dL (NEG) Urine Ketones (Stick) 15 mg/dL (NEG) Urine Blood Large (NEG) Urine Nitrite Positive (NEG) Urine Bilirubin Large (NEG) Urine Urobilinogen Dipstick 1.0 mg/dL (0.2 mg/dL) Urine Leukocyte Esterase Large (NEG) Urine RBC Tntc /HPF (0-2) Urine WBC 20-40 /HPF (0-4) Urine Squamous Epithelial Cells Occ /LPF Urine Bacteria Moderate /HPF (0-FEW) Triglycerides Level 40 mg/dL (0-150) Cholesterol Level 133 mg/dL (0-200) LDL Cholesterol, Calculated 70 mg/dL (0-100) VLDL Cholesterol, Calculated 8 mg/dL (0-40) Non-HDL Cholesterol Calculated 78 mg/dL (0-129) HDL Cholesterol 55 mg/dL (40-60) Cholesterol/HDL Ratio 2.4 Laboratory Tests Test 08/27/19 16:35 08/27/19 17:00 08/28/19 00:05 08/28/19 06:01 White Blood Count 3.9 x10^3/uL (4.0-11.0) Red Blood Count 4.64 x10^6/uL (3.50-5.40) Hemoglobin 11.1 g/dL (12.0-15.5) Hematocrit 35.8 % (36.0-47.0) Mean Corpuscular Volume 77 fL (79-100) Mean Corpuscular Hemoglobin 24 pg (25-35) Mean Corpuscular Hemoglobin Concent 31 g/dL (31-37) Red Cell Distribution Width 17.8 % (11.5-14.5) Platelet Count 159 x10^3/uL (140-400) Neutrophils (%) (Auto) 56 % (31-73) Lymphocytes (%) (Auto) 23 % (24-48) Monocytes (%) (Auto) 15 % (0-9) Eosinophils (%) (Auto) 6 % (0-3) Basophils (%) (Auto) 1 % (0-3) Neutrophils # (Auto) 2.2 x10^3/uL (1.8-7.7) Lymphocytes # (Auto) 0.9 x10^3/uL (1.0-4.8) Monocytes # (Auto) 0.6 x10^3/uL (0.0-1.1) Eosinophils # (Auto) 0.2 x10^3/uL (0.0-0.7) Basophils # (Auto) 0.0 x10^3/uL (0.0-0.2) Platelet Estimate Adequate (ADEQUATE) Platelet Clumps, EDTA Large Platelets Occ Hypochromasia Slight Anisocytosis Slight Prothrombin Time 14.2 SEC (11.7-14.0) Prothromb Time International Ratio 1.1 (0.8-1.1) Activated Partial Thromboplast Time 27 SEC (24-38) Sodium Level 138 mmol/L (136-145) Potassium Level 4.3 mmol/L (3.5-5.1) Chloride Level 102 mmol/L (98-107) Carbon Dioxide Level 24 mmol/L (21-32) Anion Gap 12 (6-14) Blood Urea Nitrogen 28 mg/dL (7-20) Creatinine 1.1 mg/dL (0.6-1.0) Estimated GFR (Cockcroft-Gault) 47.6 BUN/Creatinine Ratio 25 (6-20) Glucose Level 103 mg/dL (70-99) Calcium Level 9.2 mg/dL (8.5-10.1) Magnesium Level 1.9 mg/dL (1.8-2.4) Total Bilirubin 0.4 mg/dL (0.2-1.0) Aspartate Amino Transf (AST/SGOT) 17 U/L (15-37) Alanine Aminotransferase (ALT/SGPT) 17 U/L (14-59) Alkaline Phosphatase 92 U/L (46-116) Creatine Kinase 20 U/L (26-192) Creatine Kinase MB (Mass) 0.6 ng/mL (0.0-3.6) Creatine Kinase MB Relative Index 3.0 % (0-4) Troponin I Quantitative < 0.017 ng/mL (0.000-0.055) < 0.017 ng/mL (0.000-0.055) < 0.017 ng/mL (0.000-0.055) SI-Ipw-Z-Type Natriuretic Peptide 992 pg/mL (0-449) Total Protein 6.7 g/dL (6.4-8.2) Albumin 3.4 g/dL (3.4-5.0) Albumin/Globulin Ratio 1.0 (1.0-1.7) Urine Collection Type Unknown Urine Color Red Urine Clarity Turbid Urine pH 5.5 Urine Specific [place] 1.020 Urine Protein 100 mg/dL (NEG-TRACE) Urine Glucose (UA) Negative mg/dL (NEG) Urine Ketones (Stick) 15 mg/dL (NEG) Urine Blood Large (NEG) Urine Nitrite Positive (NEG) Urine Bilirubin Large (NEG) Urine Urobilinogen Dipstick 1.0 mg/dL (0.2 mg/dL) Urine Leukocyte Esterase Large (NEG) Urine RBC Tntc /HPF (0-2) Urine WBC 20-40 /HPF (0-4) Urine Squamous Epithelial Cells Occ /LPF Urine Bacteria Moderate /HPF (0-FEW) Triglycerides Level 40 mg/dL (0-150) Cholesterol Level 133 mg/dL (0-200) LDL Cholesterol, Calculated 70 mg/dL (0-100) VLDL Cholesterol, Calculated 8 mg/dL (0-40) Non-HDL Cholesterol Calculated 78 mg/dL (0-129) HDL Cholesterol 55 mg/dL (40-60) Cholesterol/HDL Ratio 2.4 Medications Current Medications Ceftriaxone Sodium (Rocephin) 1 gm 1X ONCE IVP Last administered on 08/27/19at 18:58; Start 08/27/19 at 18:30; Stop 08/27/19 at 18:31; Status DC Acetaminophen (Tylenol) 500 mg PRN Q6HRS PRN PO PAIN Last administered on 08/27/19at 23:10; Start 08/27/19 at 21:15 Amiodarone HCl (Cordarone) 100 mg PRN DAILY PRN PO HYPERTENSION; Start 08/27/19 at 21:15 Apixaban (Eliquis) 2.5 mg BID PO Last administered on 08/27/19at 22:02; Start 08/27/19 at 21:30 Aspirin (Ecotrin) 81 mg DAILYWBKFT PO ; Start 08/28/19 at 08:00 Diltiazem HCl (Cardizem 24hr Cd) 120 mg DAILY PO ; Start 08/28/19 at 09:00; Stop 08/28/19 at 07:52; Status DC Losartan Potassium (Cozaar) 25 mg HS PO ; Start 08/28/19 at 21:00; Stop 08/28/19 at 07:52; Status DC Nitroglycerin (Nitrostat) 0.4 mg PRN Q15MIN PRN SL CHEST PAIN; Start 08/27/19 at 21:15 Calcium/Vitamin D (Oscal D 500mg/ 200uts) 1 tab BIDWMEALS PO ; Start 08/28/19 at 08:00 Lactobacillus Rhamnosus (Culturelle) 1 cap DAILY PO ; Start 08/28/19 at 09:00 Multivitamins (Thera M Plus) 1 tab DAILY PO ; Start 08/28/19 at 09:00 Pantoprazole Sodium (Protonix) 40 mg DAILYAC PO Last administered on 08/28/19at 06:10; Start 08/28/19 at 07:30 Atorvastatin Calcium (Lipitor) 20 mg HS PO Last administered on 08/27/19at 23:08; Start 08/27/19 at 23:00 Non-Formulary Medication (Valsartan (Diovan)) 1 tab DAILY PO ; Start 08/28/19 at 09:00; Status UNV Losartan Potassium (Cozaar) 25 mg 1X ONCE PO Last administered on 08/27/19at 23:08; Start 08/27/19 at 22:45; Stop 08/27/19 at 22:46; Status DC Losartan Potassium (Cozaar) 25 mg DAILY PO ; Start 08/28/19 at 09:00; Stop 08/28/19 at 07:52; Status DC Ceftriaxone Sodium (Rocephin) 1 gm Q24H IVP ; Start 08/28/19 at 09:00 Diltiazem HCl (Cardizem 24hr Cd) 120 mg DAILY PO ; Start 08/28/19 at 13:00 Active Scripts Active Metoprolol Succinate ( Xl ) (Metoprolol Succinate) 25 Mg Tab.er.24h 12.5 Mg PO DAILY 30 Days Reported Metoprolol Succinate ( Xl ) (Metoprolol Succinate) 25 Mg Tab.er.24h 12.5 Tab PO DAILY Probiotic (Lactobacillus Acidophilus) 1 Each Capsule 1 Each PO DAILY Eliquis (Apixaban) 2.5 Mg Tablet 2.5 Mg PO BID Prilosec Otc (Omeprazole Magnesium) 20 Mg Tablet.dr 1 Tab PO DAILY Losartan Potassium (Losartan Potassium) 25 Mg Tablet 25 Mg PO HS Aspir-Low (Aspirin) 81 Mg Tablet.dr 1 Tab PO DAILY Calcium + Vitamin D Tablet (Calcium Carbonate/Vitamin D3) 1 Each Tablet 1 Each PO BID Tylenol Extra Strength (Acetaminophen) 500 Mg Tablet 500 Mg PO PRN PRN Pravastatin Sodium 80 Mg Tablet 80 Mg PO HS Pacerone (Amiodarone Hcl) 200 Mg Tablet 100 Mg PO DAILY PRN NITROGLYCERIN SubLingual (Nitroglycerin) 0.4 Mg Tab.subl 1 Tab SL UD Multi-Day Vitamins (Multivitamin) 1 Each Tablet 1 Tab PO DAILY Diovan (Valsartan) 40 Mg Tablet 1 Tab PO DAILY Diltiazem 24HR Cd (Diltiazem Hcl) 120 Mg Cap.er.24h 1 Cap PO DAILY Vitals/I & O Vital Sign - Last 24 Hours 08/27/19 08/27/19 08/27/19 08/27/19 16:10 17:45 18:45 19:45 Temp 98.4 98.4 Pulse 65 72 70 68 Resp 16 18 18 18 B/P (MAP) 106/57 (73) Pulse Ox 98 98 98 97 O2 Delivery Room Air 08/27/19 08/27/19 08/27/19 08/27/19 20:09 20:10 23:08 23:10 Temp 97.6 97.7 97.6 97.7 Pulse 82 82 80 Resp 20 16 B/P (MAP) 125/89 (101) 125/89 113/62 (79) Pulse Ox 99 99 O2 Delivery Room Air Room Air Room Air 08/28/19 08/28/19 02:34 07:00 Temp 98.0 97.8 98.0 97.8 Pulse 78 78 Resp 18 16 B/P (MAP) 100/49 (66) 95/56 (69) Pulse Ox 98 97 O2 Delivery Room Air Room Air Intake and Output 08/27/19 08/27/19 08/28/19 15:00 23:00 07:00 Intake Total 0 ml 380 ml Output Total 100 ml 650 ml Balance -100 ml -270 ml JAYY CHOW MD Aug 28, 2019 10:00
[2019-08-28] MEDS ORDERED: CEFD300C PO (10:01)
--- NOTE | 2019-08-28 10:11 | PDOC3 ---
Discharge Summary Visit Information Date of Admission: Aug 27, 2019 Date of Discharge: Aug 28, 2019 Admitting Diagnosis Comment: UTI, symptomatic MIld hematuria on eliquis for cardiac reasons Microcytic anemia GEriatric, fall risk Lightheadedness CHest dc Final Diagnosis Problems Medical Problems: (1) Chest pain Status: Acute (2) Lightheadedness Status: Acute (3) UTI (urinary tract infection) Status: Acute Brief Hospital Course Allergies Allergies Coded Allergies Type Severity Reaction Last Updated Verified codeine Allergy Intermediate diarrhea, vomiting 05/17/14 Yes I S O L A T I O N *CONTACT* Allergy Unknown 04/13/18 Yes Vital Signs Vital Signs Date Time Temp Pulse Resp B/P (MAP) Pulse Ox O2 Delivery O2 Flow Rate FiO2 08/28/19 07:00 97.8 78 16 95/56 (69) 97 Room Air 97.8 Lab Results Laboratory Tests Test 08/27/19 16:35 08/27/19 17:00 08/28/19 00:05 08/28/19 06:01 White Blood Count 3.9 x10^3/uL (4.0-11.0) Red Blood Count 4.64 x10^6/uL (3.50-5.40) Hemoglobin 11.1 g/dL (12.0-15.5) Hematocrit 35.8 % (36.0-47.0) Mean Corpuscular Volume 77 fL (79-100) Mean Corpuscular Hemoglobin 24 pg (25-35) Mean Corpuscular Hemoglobin Concent 31 g/dL (31-37) Red Cell Distribution Width 17.8 % (11.5-14.5) Platelet Count 159 x10^3/uL (140-400) Neutrophils (%) (Auto) 56 % (31-73) Lymphocytes (%) (Auto) 23 % (24-48) Monocytes (%) (Auto) 15 % (0-9) Eosinophils (%) (Auto) 6 % (0-3) Basophils (%) (Auto) 1 % (0-3) Neutrophils # (Auto) 2.2 x10^3/uL (1.8-7.7) Lymphocytes # (Auto) 0.9 x10^3/uL (1.0-4.8) Monocytes # (Auto) 0.6 x10^3/uL (0.0-1.1) Eosinophils # (Auto) 0.2 x10^3/uL (0.0-0.7) Basophils # (Auto) 0.0 x10^3/uL (0.0-0.2) Platelet Estimate Adequate (ADEQUATE) Platelet Clumps, EDTA Large Platelets Occ Hypochromasia Slight Anisocytosis Slight Prothrombin Time 14.2 SEC (11.7-14.0) Prothromb Time International Ratio 1.1 (0.8-1.1) Activated Partial Thromboplast Time 27 SEC (24-38) Sodium Level 138 mmol/L (136-145) Potassium Level 4.3 mmol/L (3.5-5.1) Chloride Level 102 mmol/L (98-107) Carbon Dioxide Level 24 mmol/L (21-32) Anion Gap 12 (6-14) Blood Urea Nitrogen 28 mg/dL (7-20) Creatinine 1.1 mg/dL (0.6-1.0) Estimated GFR (Cockcroft-Gault) 47.6 BUN/Creatinine Ratio 25 (6-20) Glucose Level 103 mg/dL (70-99) Calcium Level 9.2 mg/dL (8.5-10.1) Magnesium Level 1.9 mg/dL (1.8-2.4) Total Bilirubin 0.4 mg/dL (0.2-1.0) Aspartate Amino Transf (AST/SGOT) 17 U/L (15-37) Alanine Aminotransferase (ALT/SGPT) 17 U/L (14-59) Alkaline Phosphatase 92 U/L (46-116) Creatine Kinase 20 U/L (26-192) Creatine Kinase MB (Mass) 0.6 ng/mL (0.0-3.6) Creatine Kinase MB Relative Index 3.0 % (0-4) Troponin I Quantitative < 0.017 ng/mL (0.000-0.055) < 0.017 ng/mL (0.000-0.055) < 0.017 ng/mL (0.000-0.055) QK-Jyp-J-Type Natriuretic Peptide 992 pg/mL (0-449) Total Protein 6.7 g/dL (6.4-8.2) Albumin 3.4 g/dL (3.4-5.0) Albumin/Globulin Ratio 1.0 (1.0-1.7) Urine Collection Type Unknown Urine Color Red Urine Clarity Turbid Urine pH 5.5 Urine Specific [place] 1.020 Urine Protein 100 mg/dL (NEG-TRACE) Urine Glucose (UA) Negative mg/dL (NEG) Urine Ketones (Stick) 15 mg/dL (NEG) Urine Blood Large (NEG) Urine Nitrite Positive (NEG) Urine Bilirubin Large (NEG) Urine Urobilinogen Dipstick 1.0 mg/dL (0.2 mg/dL) Urine Leukocyte Esterase Large (NEG) Urine RBC Tntc /HPF (0-2) Urine WBC 20-40 /HPF (0-4) Urine Squamous Epithelial Cells Occ /LPF Urine Bacteria Moderate /HPF (0-FEW) Triglycerides Level 40 mg/dL (0-150) Cholesterol Level 133 mg/dL (0-200) LDL Cholesterol, Calculated 70 mg/dL (0-100) VLDL Cholesterol, Calculated 8 mg/dL (0-40) Non-HDL Cholesterol Calculated 78 mg/dL (0-129) HDL Cholesterol 55 mg/dL (40-60) Cholesterol/HDL Ratio 2.4 Laboratory Tests Test 08/27/19 16:35 08/27/19 17:00 08/28/19 00:05 08/28/19 06:01 White Blood Count 3.9 x10^3/uL (4.0-11.0) Red Blood Count 4.64 x10^6/uL (3.50-5.40) Hemoglobin 11.1 g/dL (12.0-15.5) Hematocrit 35.8 % (36.0-47.0) Mean Corpuscular Volume 77 fL (79-100) Mean Corpuscular Hemoglobin 24 pg (25-35) Mean Corpuscular Hemoglobin Concent 31 g/dL (31-37) Red Cell Distribution Width 17.8 % (11.5-14.5) Platelet Count 159 x10^3/uL (140-400) Neutrophils (%) (Auto) 56 % (31-73) Lymphocytes (%) (Auto) 23 % (24-48) Monocytes (%) (Auto) 15 % (0-9) Eosinophils (%) (Auto) 6 % (0-3) Basophils (%) (Auto) 1 % (0-3) Neutrophils # (Auto) 2.2 x10^3/uL (1.8-7.7) Lymphocytes # (Auto) 0.9 x10^3/uL (1.0-4.8) Monocytes # (Auto) 0.6 x10^3/uL (0.0-1.1) Eosinophils # (Auto) 0.2 x10^3/uL (0.0-0.7) Basophils # (Auto) 0.0 x10^3/uL (0.0-0.2) Platelet Estimate Adequate (ADEQUATE) Platelet Clumps, EDTA Large Platelets Occ Hypochromasia Slight Anisocytosis Slight Prothrombin Time 14.2 SEC (11.7-14.0) Prothromb Time International Ratio 1.1 (0.8-1.1) Activated Partial Thromboplast Time 27 SEC (24-38) Sodium Level 138 mmol/L (136-145) Potassium Level 4.3 mmol/L (3.5-5.1) Chloride Level 102 mmol/L (98-107) Carbon Dioxide Level 24 mmol/L (21-32) Anion Gap 12 (6-14) Blood Urea Nitrogen 28 mg/dL (7-20) Creatinine 1.1 mg/dL (0.6-1.0) Estimated GFR (Cockcroft-Gault) 47.6 BUN/Creatinine Ratio 25 (6-20) Glucose Level 103 mg/dL (70-99) Calcium Level 9.2 mg/dL (8.5-10.1) Magnesium Level 1.9 mg/dL (1.8-2.4) Total Bilirubin 0.4 mg/dL (0.2-1.0) Aspartate Amino Transf (AST/SGOT) 17 U/L (15-37) Alanine Aminotransferase (ALT/SGPT) 17 U/L (14-59) Alkaline Phosphatase 92 U/L (46-116) Creatine Kinase 20 U/L (26-192) Creatine Kinase MB (Mass) 0.6 ng/mL (0.0-3.6) Creatine Kinase MB Relative Index 3.0 % (0-4) Troponin I Quantitative < 0.017 ng/mL (0.000-0.055) < 0.017 ng/mL (0.000-0.055) < 0.017 ng/mL (0.000-0.055) NS-Ewv-U-Type Natriuretic Peptide 992 pg/mL (0-449) Total Protein 6.7 g/dL (6.4-8.2) Albumin 3.4 g/dL (3.4-5.0) Albumin/Globulin Ratio 1.0 (1.0-1.7) Urine Collection Type Unknown Urine Color Red Urine Clarity Turbid Urine pH 5.5 Urine Specific [place] 1.020 Urine Protein 100 mg/dL (NEG-TRACE) Urine Glucose (UA) Negative mg/dL (NEG) Urine Ketones (Stick) 15 mg/dL (NEG) Urine Blood Large (NEG) Urine Nitrite Positive (NEG) Urine Bilirubin Large (NEG) Urine Urobilinogen Dipstick 1.0 mg/dL (0.2 mg/dL) Urine Leukocyte Esterase Large (NEG) Urine RBC Tntc /HPF (0-2) Urine WBC 20-40 /HPF (0-4) Urine Squamous Epithelial Cells Occ /LPF Urine Bacteria Moderate /HPF (0-FEW) Triglycerides Level 40 mg/dL (0-150) Cholesterol Level 133 mg/dL (0-200) LDL Cholesterol, Calculated 70 mg/dL (0-100) VLDL Cholesterol, Calculated 8 mg/dL (0-40) Non-HDL Cholesterol Calculated 78 mg/dL (0-129) HDL Cholesterol 55 mg/dL (40-60) Cholesterol/HDL Ratio 2.4 Brief Hospital Course Ms. Vee is a 83 old [white female with good IADLS, admitted bec of UTI with mild sxs (mild hematuria on eliquis for a fib)< and some chest dc, co managed with cards, BP low side, advised to hold home losartan but may take when BP is creeping up at home, NO PT needs CArds eval UR HOme today after getting a food tray\ Cefdinir on chart MAy cont eliquis since only VERY MILD hematuria Discharge Information Condition at Discharge: Improved, Stable Disposition/Orders: D/C to Home Scheduled Apixaban (Eliquis) 2.5 Mg Tablet, 2.5 MG PO BID, (Reported) Entered as Reported by: Prince Donato on 04/11/182103 Last Action: Continued on 08/27/192106 by Pascual Akhtar Aspirin (Aspir-Low) 81 Mg Tablet., 1 TAB PO DAILY, #30 Ref 3 (Reported) Entered as Reported by: Prince Donato on 04/11/182100 Last Action: Continued on 08/27/192106 by Pascual Akhtar Calcium Carbonate/Vitamin D3 (Calcium + Vitamin D Tablet) 1 Each Tablet, 1 EACH PO BID, (Reported) Entered as Reported by: CHUCK ANDERSON on 05/17/14441 Last Action: Converted on 08/27/192106 by Pascual Akhtar Cefdinir (Cefdinir) 300 Mg Capsule, 1 CAP PO BID for UTI, #14 Prescribed by: JAYY CHOW on 08/28/19 1001 Diltiazem Hcl (Diltiazem 24HR Cd) 120 Mg Cap.er.24h, 1 CAP PO DAILY, #90 Ref 1 (Reported) Entered as Reported by: CHUCK ANDERSON on 05/17/14441 Last Action: Continued on 08/27/192106 by Pascual Akhtar Lactobacillus Acidophilus (Probiotic) 1 Each Capsule, 1 EACH PO DAILY, (Reported) Entered as Reported by: DHARMESH SMITH on 04/12/18 0837 Last Action: Converted on 08/27/192106 by Pascual Akhtar Losartan Potassium (Losartan Potassium ) 25 Mg Tablet, 25 MG PO HS for , (Reported) Entered as Reported by: Prince Donato on 04/11/182100 Last Action: Edited on 08/27/192157 by Pascual Akhtar Metoprolol Succinate (Metoprolol Succinate ( Xl )) 25 Mg Tab.er.24h, 12.5 MG PO DAILY for CHF for 30 Days, #15 Ref 2 Prescribed by: CUCO GARCIA MD on 08/21/19 1345 Metoprolol Succinate (Metoprolol Succinate ( Xl )) 25 Mg Tab.er.24h, 12.5 TAB PO DAILY for , #30 Ref 5 (Reported) Entered as Reported by: Pascual Akhtar on 08/27/192042 Last Taken: 12.5 on Unknown Date & Time Last Action: New Order on 08/27/192042 by Pascual Akhtar Multivitamin (Multi-Day Vitamins) 1 Each Tablet, 1 TAB PO DAILY, #30 (Reported) Entered as Reported by: CHUCK ANDERSON on 05/17/14441 Last Action: Converted on 08/27/192106 by Pascual Akhtar Nitroglycerin (NITROGLYCERIN SubLingual) 0.4 Mg Tab.subl, 1 TAB SL UD, #25 Ref 3 (Reported) Entered as Reported by: CHUCK ANDERSON on 05/17/14441 Last Action: Continued on 08/27/192106 by Pascual Akhtar Omeprazole Magnesium (Prilosec Otc) 20 Mg Tablet.dr, 1 TAB PO DAILY, #30 Ref 3 (Reported) Entered as Reported by: Prince Donato on 04/11/182100 Last Action: Converted on 08/27/192106 by Pascual Akhtar Pravastatin Sodium (Pravastatin Sodium) 80 Mg Tablet, 80 MG PO HS for , #30 Ref 5 (Reported) Entered as Reported by: CHUCK ANDERSON on 05/17/14441 Last Action: Edited on 08/27/192201 by Pascual Akhtar Valsartan (Diovan) 40 Mg Tablet, 1 TAB PO DAILY, #90 Ref 1 (Reported) Entered as Reported by: CHUCK ANDERSON on 05/17/14441 Last Action: Converted on 08/27/192106 by Pascual Akhtar Scheduled PRN Acetaminophen (Tylenol Extra Strength) 500 Mg Tablet, 500 MG PO PRN PRN for PAIN, (Reported) Entered as Reported by: CHUCK ANDERSON on 05/17/14441 Last Action: Continued on 08/27/192106 by Pascual Akhtar Amiodarone Hcl (Pacerone) 200 Mg Tablet, 100 MG PO DAILY PRN for HYPERTENSION, SEE COMMENTS, (Reported) Entered as Reported by: CHUCK ANDERSON on 05/17/14441 Last Action: Continued on 08/27/192106 by Pascual Akhtar Discontinued Medications Ciprofloxacin Hcl (Cipro) 500 Mg Tablet, 1 TAB PO BID, #14 Prescribed by: JAYY CHOW on 04/14/18 1342 JAYY CHOW MD Aug 28, 2019 10:11
--- NOTE | 2019-08-28 10:16 | PDOC2 ---
CARDIAC CONSULT DATE OF CONSULT Date of Consult DATE: 08/28/19 TIME: 09:43 REASON FOR CONSULT Reason for Consult: Chest pain, lightheaded REFERRING PHYSICIAN Referring Physician: Capri SOURCE Source: Chart review, Patient HISTORY OF PRESENT ILLNESS HISTORY OF PRESENT ILLNESS This is a pleasant 83 yo female admitted for complains of UTI and chest pain. Reports of sharp left chest pain radiating to left shoulder no associated with exertion only lasted about 5 minutes yesterday. With nausea but no vomiting and no MATA. No palpitations. She had UTI from recent admission and apparently still has a UTI. Her hydration has not been up to par. No recent falls or injury. She does initially complain of dizziness but this is more of a vertigo by description. Describing it as intermittent and like imbalance as being on a boat. No focal neurosymptoms. PAST MEDICAL HISTORY Past Medical History Cardiovascular: AFIB (paroxysmal), HTN, VT (2009), Hyperlipidemia, Other (LBBB; venous insufficiency with RF catheter ablation bilateral GSV) Pulmonary: No pertinent hx CENTRAL NERVOUS SYSTEM: Other (none) GI: Diverticulosis, GERD Heme/Onc: No pertinent hx Hepatobiliary: No pertinent hx Psych: No pertinent hx Musculoskeletal: Osteoarthritis Rheumatologic: No pertinent hx Infectious disease: No pertinent hx ENT: Other (epistaxis associated with Xarelto) Renal/: No pertinent hx Endocrine: No pertinent hx Dermatology: No pertinent hx PAST SURGICAL HISTORY Past Surgical History Hysterectomy, Colectomy (partial due to diverticulitis and polyps - 2012) FAMILY HISTORY Family History: Heart Disease SOCIAL HISTORY Smoke: No ALCOHOL: none Drugs: None Lives: with Family CURRENT MEDICATIONS CURRENT MEDICATIONS Current Medications Medications (Trade) Dose Ordered Sig/Emilio Route PRN Reason Start Time Stop Time Status Last Admin Dose Admin Ceftriaxone Sodium (Rocephin) 1 gm 1X ONCE IVP 08/27/19 18:30 08/27/19 18:31 DC 08/27/19 18:58 Acetaminophen (Tylenol) 500 mg PRN Q6HRS PRN PO PAIN 08/27/19 21:15 08/27/19 23:10 Apixaban (Eliquis) 2.5 mg BID PO 08/27/19 21:30 08/27/19 22:02 Pantoprazole Sodium (Protonix) 40 mg DAILYAC PO 08/28/19 07:30 08/28/19 06:10 Atorvastatin Calcium (Lipitor) 20 mg HS PO 08/27/19 23:00 08/27/19 23:08 Losartan Potassium (Cozaar) 25 mg 1X ONCE PO 08/27/19 22:45 08/27/19 22:46 DC 08/27/19 23:08 ALLERGIES ALLERGIES: Coded Allergies: codeine (Verified Allergy, Intermediate, diarrhea, vomiting, 05/17/14) I S O L A T I O N *CONTACT* (Verified Allergy, Unknown, 04/13/18) ESBL ROS Review of System 14 point ROS evaluated with pertinent positives noted per HPI PHYSICAL EXAM General: Alert, Oriented X3, Cooperative, No acute distress HEENT: Atraumatic, Mucous membr. moist/pink Lungs: Clear to auscultation, Normal air movement Heart: Other (AFIB LBBB raTE CONTROLLED) Abdomen: Soft, No tenderness Extremities: No cyanosis, No edema Skin: No breakdown, No significant lesion Neuro: Normal speech, Sensation intact Psych/Mental Status: Mental status NL, Mood NL MUSCULOSKELETAL: Osteoarthritic changes both hands VITALS/I&O VITALS/I&O: Vital Signs Date Time Temp Pulse Resp B/P (MAP) Pulse Ox O2 Delivery O2 Flow Rate FiO2 08/28/19 07:00 97.8 78 16 95/56 (69) 97 Room Air 97.8 I & O 08/27/19 08/27/19 08/28/19 15:00 23:00 07:00 Intake Total 0 ml 380 ml Output Total 100 ml 650 ml Balance -100 ml -270 ml LABS Lab: Laboratory Tests Test 08/27/19 16:35 08/27/19 17:00 08/28/19 00:05 08/28/19 06:01 White Blood Count 3.9 x10^3/uL (4.0-11.0) L Red Blood Count 4.64 x10^6/uL (3.50-5.40) Hemoglobin 11.1 g/dL (12.0-15.5) L Hematocrit 35.8 % (36.0-47.0) L Mean Corpuscular Volume 77 fL (79-100) L Mean Corpuscular Hemoglobin 24 pg (25-35) L Mean Corpuscular Hemoglobin Concent 31 g/dL (31-37) Red Cell Distribution Width 17.8 % (11.5-14.5) H Platelet Count 159 x10^3/uL (140-400) Neutrophils (%) (Auto) 56 % (31-73) Lymphocytes (%) (Auto) 23 % (24-48) L Monocytes (%) (Auto) 15 % (0-9) H Eosinophils (%) (Auto) 6 % (0-3) H Basophils (%) (Auto) 1 % (0-3) Neutrophils # (Auto) 2.2 x10^3/uL (1.8-7.7) Lymphocytes # (Auto) 0.9 x10^3/uL (1.0-4.8) L Monocytes # (Auto) 0.6 x10^3/uL (0.0-1.1) Eosinophils # (Auto) 0.2 x10^3/uL (0.0-0.7) Basophils # (Auto) 0.0 x10^3/uL (0.0-0.2) Platelet Estimate Adequate (ADEQUATE) Platelet Clumps, EDTA Large Platelets Occ Hypochromasia Slight Anisocytosis Slight Prothrombin Time 14.2 SEC (11.7-14.0) H Prothrombin Time INR 1.1 (0.8-1.1) Activated Partial Thromboplast Time 27 SEC (24-38) Sodium Level 138 mmol/L (136-145) Potassium Level 4.3 mmol/L (3.5-5.1) Chloride Level 102 mmol/L (98-107) Carbon Dioxide Level 24 mmol/L (21-32) Anion Gap 12 (6-14) Blood Urea Nitrogen 28 mg/dL (7-20) H Creatinine 1.1 mg/dL (0.6-1.0) H Estimated GFR (Cockcroft-Gault) 47.6 BUN/Creatinine Ratio 25 (6-20) H Glucose Level 103 mg/dL (70-99) H Calcium Level 9.2 mg/dL (8.5-10.1) Magnesium Level 1.9 mg/dL (1.8-2.4) Total Bilirubin 0.4 mg/dL (0.2-1.0) Aspartate Amino Transferase (AST) 17 U/L (15-37) Alanine Aminotransferase (ALT) 17 U/L (14-59) Alkaline Phosphatase 92 U/L (46-116) Creatine Kinase 20 U/L (26-192) L Creatine Kinase MB (Mass) 0.6 ng/mL (0.0-3.6) Creatine Kinase MB Relative Index 3.0 % (0-4) Troponin I Quantitative < 0.017 ng/mL (0.000-0.055) < 0.017 ng/mL (0.000-0.055) < 0.017 ng/mL (0.000-0.055) NF-Ygj-Y-Type Natriuretic Peptide 992 pg/mL (0-449) H Total Protein 6.7 g/dL (6.4-8.2) Albumin 3.4 g/dL (3.4-5.0) Albumin/Globulin Ratio 1.0 (1.0-1.7) Urine Collection Type Unknown Urine Color Red Urine Clarity Turbid Urine pH 5.5 Urine Specific Excel 1.020 Urine Protein 100 mg/dL (NEG-TRACE) Urine Glucose (UA) Negative mg/dL (NEG) Urine Ketones (Stick) 15 mg/dL (NEG) Urine Blood Large (NEG) Urine Nitrite Positive (NEG) Urine Bilirubin Large (NEG) Urine Urobilinogen Dipstick 1.0 mg/dL (0.2 mg/dL) Urine Leukocyte Esterase Large (NEG) Urine RBC Tntc /HPF (0-2) Urine WBC 20-40 /HPF (0-4) Urine Squamous Epithelial Cells Occ /LPF Urine Bacteria Moderate /HPF (0-FEW) Triglycerides Level 40 mg/dL (0-150) Cholesterol Level 133 mg/dL (0-200) LDL Cholesterol, Calculated 70 mg/dL (0-100) VLDL Cholesterol, Calculated 8 mg/dL (0-40) Non-HDL Cholesterol Calculated 78 mg/dL (0-129) HDL Cholesterol 55 mg/dL (40-60) Cholesterol/HDL Ratio 2.4 Laboratory Tests 08/27/19 16:35 Laboratory Tests 08/27/19 16:35 ECHOCARDIOGRAM ECHOCARDIOGRAM <Conclusion> The left ventricular systolic function is mildly reduced. EF 45-50%. Septal motion suggestive of prior CABG and conduction defect. Doppler and Color-flow revealed mild mitral regurgitation. DATE: 07/24/19 0818 STRESS TEST STRESS TEST Conclusion 1. Regadenoson cardioisotope stress test did not show any evidence of ischemia or infarct. 2. Normal left ventricular systolic function with ejection fraction calculated at 72%. 3. Low risk for cardiac events. DATE: 04/13/18 1127 ASSESSMENT/PLAN ASSESSMENT/PLAN 1. Persistent UTI: per ID 2. Vertigo: possibly BPPV 2. Persistent AFIB with chronic LBBB: rate controlled. 3. Atypical chest pain: deferred ischemic workup as an outpt 4. HTN: marginal low 5. Chronic diastolic/systoilc CHF: compensated 6. HLP: on goal 7. Venous insufficiency; s/p ablation therapy Recommendations 1. Continue with current AFIB regime. No BB, continue cardizem. Hold losartan. Continue amiodarone and eliquis 2. Pt has reconsidered MPI, Will schedule as an outpt. 3. Post MPI if she still in AFIB then will plan for outpt CVN. Follow up on 09/[address] Don 4. Continue secondary prevention measures. 5. HBPM. Check orthostatic readings NICOLE SERNA APRN Aug 28, 2019 10:16
[2019-08-28] MEDS: APIXABAN 2.5 MG TABLET. PO SCH (10:18)
[2019-08-28 11:00] VITALS: BP 117/58
[2019-08-28 11:05] VITALS: BP 121/81
[2019-08-28 11:10] VITALS: BP 119/73
--- NOTE | 2019-08-28 12:28 | RAD ---
Examination: RENAL COMPLETE BILATERAL History: Recurrent UTI Comparison/Correlation: None Findings: Renal ultrasound is performed. Right kidney measures 10.6 cm x 4.1 cm x 3.9 cm. Left kidney measures 11 cm x 4 cm x 4.4 cm. Mild left hydronephrosis is present. No right hydronephrosis. Renal cortical echotexture is unremarkable. Urinary bladder is unremarkable. Impression: Mild left hydronephrosis. Electronically signed by: Jayme Gallardo MD (08/28/2019 12:25 PM) [facility]
--- NOTE | 2019-08-28 13:14 | CONS ---
DATE OF CONSULTATION: 08/28/2019 REFERRING PHYSICIAN: Chary Herrera DO REASON FOR CONSULTATION: UTI. HISTORY OF PRESENT ILLNESS: An 83-year-old female brought to the ER on 08/27/2019 with complaints of lightheadedness. The patient also had nausea and generalized fatigue, had chest pain. She had dysuria, also had hematuria. She was started on ceftriaxone. UA shows pyuria. Urine culture is pending at this time. The patient was treated recently for urinary tract infection at which time she was given Rocephin and was discharged on doxycycline. Her urine culture showed E. coli, not ESBL. Today, the patient denies any dizziness, chest pain has resolved. Should her urine is clearing. She still has dysuria, nausea is subsiding. She is hungry currently. REVIEW OF SYSTEMS: Negative except for above. PAST MEDICAL HISTORY: AFib, hypertension, history of [place], leukopenia, colon prolapse, left bundle branch block. PAST SURGICAL HISTORY: Hysterectomy, colon resection, cataract surgery. SOCIAL HISTORY: No smoking, ETOH, or illicit drug use. FAMILY HISTORY: As per HPI. CURRENT MEDICATIONS: Rocephin, amiodarone, Tylenol, Eliquis, aspirin, Lipitor, calcium carbonate, diltiazem, lactobacillus, losartan, multivitamin, nitroglycerin, Protonix. PHYSICAL EXAMINATION: VITAL SIGNS: Temperature 97.8, pulse 78, respirations 16, blood pressure 95/56, oxygen saturation 97% on room air. GENERAL: Alert and oriented x 3 female, sitting in chair, in no acute distress, cooperative. HEENT: Normocephalic, atraumatic, anicteric. No thrush. Oral mucosa moist. NECK: Supple, no lymphadenopathy. LUNGS: Clear bilaterally. HEART: S1, S2. No gallops, no murmurs. ABDOMEN: Soft, nontender, nondistended. BACK: Reveals normal curvature. No CVA tenderness. EXTREMITIES: No edema, no cyanosis. DERMATOLOGIC: Warm, dry. No generalized rash. PSYCHIATRIC: Cooperative, appropriate mood and affect. LABORATORY DATA: WBC 3.9, hemoglobin 11.1, hematocrit 35.8, platelets 159. Sodium 138, potassium 4.3, chloride 102, bicarbonate 24, BUN 28, creatinine 1.1, glucose 103. UA shows large blood, large leukocyte esterase, large bilirubin, rbc's too numerous to count, wbc's 20-40. MICROBIOLOGY: Urine culture 08/19, straight cath is E. coli sensitive to Augmentin, resistant to ampicillin, sensitive to cefepime, ceftriaxone, cefuroxime, ertapenem, gentamicin, imipenem, meropenem, nitrofurantoin, piperacillin/tazobactam, tobramycin, resistant to trimethoprim/sulfa, tetracycline and levofloxacin and ciprofloxacin. Blood cultures negative. IMAGING: Chest x-ray shows no acute cardiopulmonary process. IMPRESSION: 1. Recurrent urinary tract infection, recent Escherichia coli urinary tract infection, treated with Rocephin for 2 days and was discharged on doxycycline. 2. Hematuria. 3. Dizziness. 4. Atrial fibrillation. 5. Leukopenia, chronic. 6. Nausea. 7. Fatigue. 8. Chest pain, resolved. RECOMMENDATIONS: 1. Continue Rocephin at the current dose. 2. Obtain ultrasound of renal. 3. Urology service is not available at this hospital. 4. Follow up cultures and lab. 5. Continue supportive care. Thank you, Dr. Herrera, for consulting Infectious Disease to participate in this patient's care. If you have any questions, do not hesitate to contact me. PAUL GARCIA MD DR: ISIS/nts JOB#: [id number] / [id number]
[2019-08-28 15:24] VITALS: BP 122/78
--- NOTE | 2019-08-28 18:29 | NUR ---
Discharge Note: KENDELL BOUCHER RENY Discharge instructions and discharge home medications reviewed with Patient and a copy given. All questions have been answered and understanding verbalized. The following instructions and handouts were given: medications, check blood pressure daily and hold cardiac medications for hypotension, call Dr. Magdalena bazan and have him follow up on blood cultures and antibiotics, diet, follow up with excellence consultant, hyper and hypotension, patient . Discontinued lines and drains: IV removed, no lines present at discharge. Patient discharged to home. left with family to private vehicle.
[2019-09-27] MEDS ORDERED: NITR100C62 PO (13:39)
[2019-09-27] MEDS ORDERED: LOSA-73 PO (13:39)
[2019-09-27] MEDS ORDERED: ALBU2.5V8 INH (13:39)
[2019-09-27] MEDS ORDERED: CALC-31 PO (13:39)
[2019-09-27] MEDS ORDERED: CYAN25008 PO (13:43)
== END 2019-08-28 17:50 | disposition home or self-care (01) ==
LOC: ER 14:00 → 2 NORTH 18:13 → INTOOBSV 18:13
PROVIDERS: ADMIT Internal Medicine; ATTEND Internal Medicine
DX: A41.9 Sepsis, unspecified organism (principal); K22.2 Esophageal obstruction; K92.2 Gastrointestinal hemorrhage, unspecified; R07.89 Other chest pain; R42 Dizziness and giddiness; N39.0 Urinary tract infection, site not specified; I48.91 Unspecified atrial fibrillation; I25.2 Old myocardial infarction; I44.7 Left bundle-branch block, unspecified; I10 Essential (primary) hypertension; Z90.710 Acquired absence of both cervix and uterus; Z98.49 Cataract extraction status, unspecified eye; Z98.890 Other specified postprocedural states
CPT/HCPCS: 36415; 71045; 76770; 80053; 80061; 81001; 82553; 83735; 83880; 84484; 85025; 85610; 85730; 87086; 93005; 96374; 96376; 97161; 97165; 97535; 99284; G0378; J0696; G0379; 99285-25

== ENCOUNTER → 2019-09-07 | Outpatient (CLI) | payer MEDICARE, BC ==
[2019-08-28 15:24] VITALS: BP 122/78
[~2019-09-07] MED LIST changes: +CEFD300C PO; +REGADENOSON 0.4 MG/5 ML DISP.SYRIN. IV ONE
--- NOTE | 2019-09-07 12:34 | RAD ---
MR#: [id number] Date of Study: 09/07/2019 Ordering Physician: MATTHEW MARIE, Referring Physician: JUDITH ROBERTS Tech: RT Nati MartinezR) (N) APPROVED REPORT Test Type: Pharmacological Stress Nurse/Tech: Amira Mota Test Indications: CP, Afib, Pt explains having multiple admissions for sepsis before and . She states she has been having episodes of chest pain over the last 2-3 days[address] Mrs. Vee states the chest pain has felt like a pressure that comes and goes at any time of the day. Cardiac History: HTN, Increased Cholesterol, Smoker, See EMR Medications: ASA, Eliquis, See EMR Medical History: See EMR Resting ECG: Afib Resting Heart Rate: 103 bpm Resting Blood Pressure: 122/70mmHg Pretest Chest Pain: No chest pain Nurse/Tech Notes Lungs CTA, Heart tones irregular. Consent: The procedure was explained to the patient in lay terms. Informed consent was witnessed. Colin eout was entered into [employer]. History and Stress Test performed by RT Michelle (Vero) (N) Pharm. Details Pharmacologic stress testing was performed using 0.4mg per 5ml of regadenoson given intravenously ove r 7-10 seconds. Stress Symptoms Pt c/o having chest pressure at a rating of 4/10; @ Stage 1 time 01:00. Pt explains the pressure is midchest and at times radiates to the back. Mrs. Vee described the chest pressure as decreasing thr ough out the test and being resolved by the end. POST EXERCISE Reason for Termination: Infusion complete Max HR: 118 bpm Max Blood Pressure: 133/64mmHg Blood Pressure response to exercise: Normal blood pressure response during stress. Heart Rate response to exercise: WNL Chest Pain: Yes. See Stress Symptoms Arrhythmia: No. ST Change: Yes. See Stress Symptoms INTERPRETATION Stress EKG Conclusion: Suspect atrial fibrillation with a LBBB. No acute ischemic changes. Imaging Protocol IMAGE PROTOCOL: Rest Tc-99m/stress Tc-99m 1 day Rest: Stress: Viability: Radiopharm.Tc99m [id number] Sestamibi Ykmp56oXl 31mCi Duration 13min. 13min. Img Date 09/07/2019 09/07/2019 Inj-Img Inhv70izg. 45min. Rest Admin Site:IV - Left AntecubitalAdministrator: RT Michelle (R)(N) Stress Admin Site: IV - Left AntecubitalAdministrator: RT Michelle (R)(N) STRESS DATA End Diast. Vol.79.0mlAv. Heart Rate73.0bpm End Syst. Vol.26.0mlCO Index BSA0.0L/min Myocardial Elsk931.0gEject. Aganigyp03.0% Stress Rates Pk. Fill Rate2.96EDV/secLVtime Pk. Fill 129.08msec Pk. Empty Rate3.57ESV/secLVtime Pk. Lzzja950.69msec 08/31 Pk. Fill1.82EDV/sec Stress Scores Regional WT0.00Summed WT1.00 Regional WM0.00Summed WM4.00 The rest and stress images show normal perfusion, normal contraction and thickening. LV Perf. Quant 17 Seg. SSS2.00 17 Seg. SRS1.00 17 Seg. SDS2.00 Stress Defect Extent (% LAD)11.90Rest Defect Extent (% LAD)0.00Rev. Defect Extent (% LAD)0.60 Stress Defect Extent (% LCX) 0.00Rest Defect Extent (% LCX)0.00Rev. Defect Extent (% LCX)0.00 Stress Defect Extent (% RCA)0.00Rest Defect Extent (% RCA)0.00Rev. Defect Extent (% RCA)0.00 Stress Defect Extent (% JD)4.10Rest Defect Extent (% JD)0.00Rev. Defect Extent (% JD)0.20 Other Information Quality:Fair Risk Assessment: Low Risk Conclusion 1. Non-diagnostic EKG for stress due to LBBB. 2. Normal perfusion at stress/rest. 3. Low risk study. 4. EF > 60%. Signed by : Hilton Colunga, Electronically Approved : 09/07/2019 12:34:01
== END | disposition home or self-care (01) ==
LOC: NM 08:07
PROVIDERS: ATTEND Internal Medicine Cardiovascular Disease
DX: R07.89 Other chest pain (principal); I48.91 Unspecified atrial fibrillation
CPT/HCPCS: 78452; 93017; A9500; J2785

== ENCOUNTER 2019-10-01 09:20 | Day surgery (SDC) | payer MEDICARE, BC ==
[~2019-10-01 09:20] MED LIST changes: +ALBU2.5V8 INH; +CALC-31 PO; +CYAN25008 PO; +IV RINGERS,LACTATED 1000ML 1,000 ML IV SCH; +LOSA-73 PO; +NITR100C62 PO; -REGADENOSON 0.4 MG/5 ML DISP.SYRIN. IV ONE
[2019-10-01 10:26] LABS: HEMATOCRIT 33.9 % (36.0-47.0); HEMOGLOBIN 10.4 g/dL (12.0-15.5); RED BLOOD COUNT 4.48 x10^6/uL (3.50-5.40); RED CELL DISTRIBUTION WIDTH 18.6 % (11.5-14.5); WHITE BLOOD COUNT 3.6 x10^3/uL (4.0-11.0)
--- NOTE | 2019-10-01 10:31 | EKG ---
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
[2019-10-01 10:36] LABS: PROTHROMBIN TIME PATIENT 15.3 SEC (11.7-14.0)
[2019-10-01 10:44] LABS: CALCIUM 9.2 mg/dL (8.5-10.1); CREATININE 0.9 mg/dL (0.6-1.0); GFR 59.9; POTASSIUM 4.4 mmol/L (3.5-5.1)
[2019-10-01] MEDS ORDERED: PROPOFOL 20 ML IV ONE (11:32)
--- NOTE | 2019-10-01 12:11 | PDOC4 ---
PROCEDURE Procedure PROCEDURE External cardioversion INDICATIONS Atrial fibrillation COMPLICATIONS None PROCEDURAL DETAILS An informed consent was obtained from patient. Anesthesiology team gave intravenous propofol for deep sedation. Patient was then administered 200 J of synchronized biphasic DC current with successful conversion of rhythm from atrial fibrillation to sinus rhythm. She was hemodynamically stable without any neurological deficits at the end of procedure. She tolerated the procedure well. CONCLUSIONS Successful external cardioversion of atrial fibrillation to sinus rhythm. MATTHEW MARIE MD Oct 01, 2019 12:11
--- NOTE | 2019-10-01 12:19 | EKG ---
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
[2019-10-01 12:37] VITALS: BP 142/68
== END 2019-10-01 13:06 | disposition home or self-care (01) ==
LOC: SURG 09:20
PROVIDERS: ATTEND Internal Medicine Cardiovascular Disease
DX: I48.91 Unspecified atrial fibrillation (principal); I10 Essential (primary) hypertension; E78.00 Pure hypercholesterolemia, unspecified; I25.2 Old myocardial infarction; K21.9 Gastro-esophageal reflux disease without esophagitis; Z90.49 Acquired absence of other specified parts of digestive tract; Z91.041 Radiographic dye allergy status; Z88.6 Allergy status to analgesic agent; Z98.49 Cataract extraction status, unspecified eye; Z90.710 Acquired absence of both cervix and uterus; Z85.828 Personal history of other malignant neoplasm of skin
CPT/HCPCS: 36415; 80048; 85027; 85610; 85730; 92960; 93005; J2704

== ENCOUNTER → 2020-03-18 | Outpatient (CLI) | payer MEDICARE, BC ==
[~2020-03-18] MED LIST changes: -IV RINGERS,LACTATED 1000ML 1,000 ML IV SCH
--- NOTE | 2020-03-18 11:50 | RAD ---
EXAM: Left lower extremity venous Doppler sonogram. HISTORY: Pain and swelling. TECHNIQUE: Joshi scale and color Doppler sonographic evaluation of the left lower extremity veins with spectral waveform analysis was performed. FINDINGS: There is normal color flow, normal compressibility and there are normal spectral waveforms in the common femoral, superficial femoral, popliteal, posterior tibial and greater peroneal veins. The greater saphenous vein has been ablated. IMPRESSION: No Doppler evidence of lower extremity deep venous thrombosis. Electronically signed by: Micaela Shelley MD (03/18/2020 11:47 AM) [id number]
== END | disposition home or self-care (01) ==
LOC: US 10:48
PROVIDERS: ATTEND Family Medicine
DX: R60.0 Localized edema (principal)
CPT/HCPCS: 93971

== ENCOUNTER 2020-04-10 17:08 | Inpatient (IN) | payer MEDICARE, BC ==
[~2020-04-10] VITALS: Ht 157.5 cm; Wt 59.2 kg
--- NOTE | 2020-04-10 17:51 | PHYS DOC ---
Past Medical History Past Medical History: A-Fib, Bronchitis, Hypertension, VT, Other Additional Past Medical Histor: LEUKOPENIA, COLON PROLASPE, L bundle branch block (EMELY LEWIS MD) Past Surgical History: Hysterectomy, Other Additional Past Surgical Histo: COLON RESECTION, cataract removal (EMELY LEWIS MD) Smoking Status: Never Smoker Alcohol Use: None Drug Use: None (EMELY LEWIS MD) General Adult EDM: Chief Complaint: WEAKNESS/GENERALIZED HPI: HPI: Patient is a 84 year old female who presents with generalized weakness. She states anytime she gets up and walks around she feels lightheaded. She is able to walk it just makes her feel like she is going to pass out. She has some nausea, diarrhea, headache with this. She denies any chest pain, cough, shortness of breath, fever, abdominal pain. She was diagnosed with a UTI yesterday and started on antibiotics. She states that her symptoms have gotten worse today. No cardiac history. No palpitations. She did recently get bitten by 2 ticks. (EMELY LEWIS MD) Review of Systems: Review of Systems: General: Denies fever, chills, sweats, fatigue Eyes: Denies drainage, blurred vision, eye redness HENT: Denies rhinorrhea, sore throat, earache Respiratory: Denies cough, shortness of breath, wheezing Cardiac: Denies edema, palpitations, chest pain GI: Denies abdominal pain, Nausea, vomiting MSK: Denies back pain, neck pain Skin: Denies rash, jaundice Neuro: Reports lightheadedness, headache Psychiatric: Denies SI/HI (EMELY LEWIS MD) Heart Score: Risk Factors: Risk Factors: DM, Current or recent (<one month) smoker, HTN, HLP, family history of CAD, obesity. Risk Scores: Score 0 - 3: 2.5% MACE over next 6 weeks - Discharge Home Score 4 - 6: 20.3% MACE over next 6 weeks - Admit for Clinical Observation Score 7 - 10: 72.7% MACE over next 6 weeks - Early Invasive Strategies (EMELY LEWIS MD) Allergies: Allergies: Allergies Coded Allergies Type Severity Reaction Last Updated Verified codeine Allergy Intermediate diarrhea, vomiting 10/01/19 Yes I S O L A T I O N *CONTACT* Allergy Unknown 10/01/19 Yes (EMELY LEWIS MD) Physical Exam: PE: General: Awake, alert, NAD. Well Nourished, well hydrated. Cooperative HEENT: Atraumatic, EOMI, PERRL, airway patent, moist oral mucosa Neck: Supple, trachea midline Respiratory: CTA bilaterally, normal effort, no wheezing/crackles CV: RRR, no murmur, cap refill <2 GI: Soft, nondistended, nontender, no masses MSK: No obvious deformities Skin: Warm, dry, intact Neuro: A&O x3, speech NL, 5/5 strength in BUE/BLE distally and proximally, CN 2- 12 intact, cerebellar testing normal Psych: Normal affect, normal mood, not suicidal or homicidal (EMELY LEWIS MD) Current Patient Data: Vital Signs: Vital Signs Date Time Temp Pulse Resp B/P (MAP) Pulse Ox O2 Delivery O2 Flow Rate FiO2 04/10/20 17:30 98.2 84 13 149/69 (95) 99 Room Air 98.2 (EMELY LEWIS MD) EKG: EKG: [] (EMELY LEWIS MD) Radiology/Procedures: Radiology/Procedures: [] (EMELY LEWIS MD) Course & Med Decision Making: Course & Med Decision Making Pertinent Labs and Imaging studies reviewed. (See chart for details) Patient is a 84-year-old female who presents to the emergency room complaining of generalized weakness and lightheadedness. History and exam are significant for tick bites, recent UTI diagnosis. Patient does not have any Given age and history differential for generalized weakness includes dehydration, electrolyte abnormalities, anemia, infection, arrhythmia, medication side effect, tickborne illness. At this time CBC, BMP, EKG, UA, troponin, chest x-ray were ordered to evaluate for causes of weakness. Patient discussed with oncoming physician Dr. Beyer who will assume care. (EMELY LEWIS MD) Course & Med Decision Making Patient is an 84-year-old female who was evaluated in ER due to general weakness, dizziness, diarrhea, frequent urination. Patient was diagnosed with UTI yesterday, she has been taken 3 doses of Ceftin already but she did not get any better, her symptoms actually got worse. Patient will be admitted to hospital . because She had failed outpatient therapy. Discussed with Dr. Javier giang who agreed to admit the patient. (JOSE BEYER DO) Dragon Disclaimer: Dragon Disclaimer: This electronic medical record was generated, in whole or in part, using a voice recognition dictation system. (EMELY LWEIS MD) Departure Departure Impression: Primary Impression: Weakness Additional Impressions: UTI (urinary tract infection) Diarrhea Disposition: ADMITTED INPATIENT Admitting Physician: PIPER (Dr. Herrera) (JOSE BEYER DO) Condition: STABLE Referrals: CAMERON TAYLOR MD (PCP) Justicifation of Admission Dx: Justifications for Admission: Justification of Admission Dx: Yes (EMELY LEWIS MD) Justification of Admission Dx: N/A (JOSE BEYER DO) EMELY LEWIS MD Apr 10, 2020 17:51 JOSE BEYER DO Apr 10, 2020 20:19
[2020-04-10] MEDS ORDERED: IV NORMAL SALINE 1000ML BAG 1,000 ML IV ONE (18:15)
[2020-04-10 18:18] LABS: BILIRUBIN,URINE NEGATIVE (NEG); CLARITY,URINE CLEAR; COLOR,URINE AMBER; NITRITE,URINE NEGATIVE (NEG); PROTEIN,URINE 30 mg/dL (NEG-TRACE)
[2020-04-10 18:20] LABS: BASO % 1 % (0-3); EOS # 0.2 x10^3/uL (0.0-0.7); EOS % 5 % (0-3); HEMATOCRIT 30.1 % (36.0-47.0); HEMOGLOBIN 9.4 g/dL (12.0-15.5); LYMPH # 0.7 x10^3/uL (1.0-4.8); LYMPH % 16 % (24-48); MEAN CORPUSCULAR HEMOGLOBIN 21 pg (25-35); MEAN CORPUSCULAR HGB CONC 31 g/dL (31-37); MEAN CORPUSCULAR VOLUME 67 fL (79-100); MONO # 1.1 x10^3/uL (0.0-1.1); MONO % 24 % (0-9); NEUT # 2.4 x10^3/uL (1.8-7.7); NEUT % 54 % (31-73); PLATELET COUNT 124 x10^3/uL (140-400); RED BLOOD COUNT 4.53 x10^6/uL (3.50-5.40); RED CELL DISTRIBUTION WIDTH 23.6 % (11.5-14.5); WHITE BLOOD COUNT 4.4 x10^3/uL (4.0-11.0)
[2020-04-10 18:32] LABS: BACTERIA,URINE 0 /HPF (0-FEW); RBC,URINE RARE /HPF (0-2); SQUAMOUS EPITHELIAL CELL,UR FEW /LPF; WBC,URINE >40 /HPF (0-4)
[2020-04-10 18:34] LABS: CALCIUM 8.6 mg/dL (8.5-10.1); POTASSIUM 3.5 mmol/L (3.5-5.1)
[2020-04-10 18:36] LABS: ALBUMIN 2.9 g/dL (3.4-5.0); ALBUMIN/GLOBULIN RATIO 0.8 (1.0-1.7); C-REACTIVE PROTEIN 132.6 mg/L (0-3.3); TOTAL BILIRUBIN 0.6 mg/dL (0.2-1.0); TOTAL PROTEIN 6.7 g/dL (6.4-8.2)
--- NOTE | 2020-04-10 18:59 | RAD ---
EXAM: AP View of the chest DATE: 04/10/2020 5:34 PM INDICATION: weak COMPARISON: No Prior FINDINGS: Heart is not enlarged. Aortic calcifications are seen. No lobar consolidation. Calcified granuloma right lung base. No pleural effusion or pneumothorax. IMPRESSION: 1. No radiographic evidence for acute cardiopulmonary process. Electronically signed by: Les Robin MD (04/10/2020 6:57 PM) [facility]
[2020-04-10 19:27] LABS: % BANDS 4 % (0-9); % BASOS 1 % (0-3); % EOS 7 % (0-5); % LYMPHS 12 % (24-48); % MONOS 24 % (0-10); % SEGS 52 % (35-66)
[2020-04-10 19:29] LABS: ANISOCYTOSIS MOD; HYPOCHROMIA MOD; MICROCYTOSIS MOD; PLT ESTIMATE ADEQUATE (ADEQUATE); POIKILOCYTOSIS SLIGHT
[2020-04-10] MEDS ORDERED: cefTRIAXone IV Push 1 GM VIAL. IVP ONE (19:45)
[2020-04-10] MEDS ORDERED: IV NORMAL SALINE 1000ML BAG 1,000 ML IV SCH (20:19)
[2020-04-10] MEDS ORDERED: ONDANSETRON PF 4 MG/2 ML VIAL. IV PRN (20:30)
[2020-04-10] MEDS ORDERED: PANT40TA77 PO (22:18)
[2020-04-10] MEDS ORDERED: DRON400T PO (22:18)
[2020-04-10] MEDS ORDERED: ACETAMINOPHEN 500 MG TABLET PO PRN (23:15)
[2020-04-10] MEDS ORDERED: NITROGLYCERIN SUBLINGUAL 0.4 MG BOTTLE OF 25. SL PRN (23:15)
[2020-04-10] MEDS ORDERED: ALBUTEROL SULFATE 2.5 MG/3 ML NEBU. INH PRN (23:15)
[2020-04-10] MEDS: APIXABAN 2.5 MG TABLET. PO SCH (23:31)
[2020-04-10] MEDS: DRONEDARONE HCL 400 MG TABLET PO SCH (23:33)
[2020-04-10] MEDS ORDERED: ATORVASTATIN CALCIUM 20 MG TABLET PO SCH (23:45)
[2020-04-10] MEDS: ATORVASTATIN CALCIUM 20 MG TABLET PO SCH (23:45)
[2020-04-11] MEDS: ANTI-COAG MONITOR BY PHARMACY. MC PRN ×2 (01:37→15:22)
--- NOTE | 2020-04-11 06:34 | EKG ---
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
[2020-04-11] MEDS: MULTIVITAMIN with MINERAL TABLET. PO SCH (07:58)
[2020-04-11] MEDS: PANTOPRAZOLE 40 MG TABLET.DR. PO SCH (07:58)
[2020-04-11] MEDS: CALCIUM CARB/VIT D3 500/200 TABLET. PO SCH ×2 (07:58→17:00)
[2020-04-11] MEDS: LACTOBACILLUS RHAMNOSUS GG 1 CAPSULE. PO SCH (07:58)
[2020-04-11] MEDS: CYANOCOBALAMIN (VITAMIN B-12) 1,000 MCG TABLET. PO SCH (07:58)
[2020-04-11] MEDS: APIXABAN 2.5 MG TABLET. PO SCH ×2 (07:58→20:39)
[2020-04-11] MEDS: DRONEDARONE HCL 400 MG TABLET PO SCH ×2 (07:59→20:40)
[2020-04-11] MEDS ORDERED: CALCIUM CARBONATE PO SCH (09:00)
[2020-04-11] MEDS ORDERED: LOSARTAN POTASSIUM 25 MG TABLET. PO SCH (09:00)
[2020-04-11] MEDS ORDERED: VITAMIN D3 PO SCH (09:00)
--- NOTE | 2020-04-11 09:03 | PDOC1 ---
History and Physical Date of Admission Date of Admission DATE: 04/11/20 TIME: 09:02 Identification/Chief Complaint Chief Complaint SEEN IN ER 84 year old female who presents with generalized weakness. When arising and walks around she feels lightheaded. She is able to walk it just makes her feel like she is going to pass out.// has some nausea, diarrhea, headache with this. She denies any chest pain, cough, now is shortness of breath, no fever, no abdominal pain. She was diagnosed with a UTI yesterday and started on antibiotics. She states that her symptoms have gotten worse today Past Medical History Past Medical History Past Medical History Past Medical History: A-Fib, Bronchitis, Hypertension, NV, Other Additional Past Medical Histor: LEUKOPENIA, COLON PROLASPE, L bundle branch block Past Surgical History: Hysterectomy, Other Additional Past Surgical Histo: COLON RESECTION, cataract removal Smoking Status: Never Smoker Alcohol Use: None Drug Use: None FHX HTN Cardiovascular: AFIB, HTN, NV, Hyperlipidemia, Other Pulmonary: No pertinent hx CENTRAL NERVOUS SYSTEM: Other GI: Diverticulosis, GERD Heme/Onc: No pertinent hx Hepatobiliary: No pertinent hx Psych: No pertinent hx Musculoskeletal: Osteoarthritis Rheumatologic: No pertinent hx Infectious disease: No pertinent hx Renal/: No pertinent hx Endocrine: No pertinent hx Past Surgical History Past Surgical History: Hysterectomy, Colectomy Family History Family History: Heart Disease Family History: Parent Social History Smoke: No ALCOHOL: none Drugs: None Current Problem List Problem List Problems Medical Problems: (1) Diarrhea Status: Acute (2) UTI (urinary tract infection) Status: Acute (3) Weakness Status: Acute Current Medications Current Medications Current Medications Sodium Chloride 1,000 ml @ 1,000 mls/hr 1X ONCE IV Last administered on 04/10/20at 18:51; Start 04/10/20 at 18:15; Stop 04/10/20 at 19:14; Status DC Ceftriaxone Sodium (Rocephin) 1 gm 1X ONCE IVP Last administered on 04/10/20at 19:55; Start 04/10/20 at 19:45; Stop 04/10/20 at 19:46; Status DC Ondansetron HCl (Zofran) 4 mg PRN Q8HRS PRN IV NAUSEA/VOMITING; Start 04/10/20 at 20:30; Stop 04/11/20 at 20:29 Sodium Chloride 1,000 ml @ 75 mls/hr [id number] IV Last administered on 04/10/20at 22:13; Start 04/10/20 at 20:19; Stop 04/11/20 at 20:18 Acetaminophen (Tylenol) 500 mg PRN Q4HRS PRN PO MILD PAIN 1-3; Start 04/10/20 at 23:15 Albuterol Sulfate (Ventolin Neb Soln) 2.5 mg PRN Q6HRS PRN INH SHORTNESS OF BREATH; Start 04/10/20 at 23:15 Apixaban (Eliquis) 2.5 mg BID PO Last administered on 04/11/20 07:58; Start 04/11/20 at 00:00 Diltiazem HCl (Cardizem 24hr Cd) 120 mg QHS PO Last administered on 04/10/20at 23:32; Start 04/11/20 at 00:00 Dronedarone (Multaq) 400 mg BID PO Last administered on 04/11/20at 07:59; Start 04/11/20 at 00:00 Losartan Potassium (Cozaar) 25 mg DAILY PO ; Start 04/11/20 at 09:00; Stop 04/11/20 at 08:08; Status DC Nitroglycerin (Nitrostat) 0.4 mg 1X PRN PRN SL CHEST PAIN; Start 04/10/20 at 23:15 Pantoprazole Sodium (Protonix) 40 mg DAILYAC PO Last administered on 04/11/20at 07:58; Start 04/11/20 at 07:30 Calcium/Vitamin D (Oscal D 500mg/ 200uts) 1 tab BIDWMEALS PO Last administered on 04/11/20at 07:58; Start 04/11/20 at 08:00 Non-Formulary Medication (Calcium Carbonate/Vitamin D3 (Calcium 500 + D Tablet)) 1 each DAILY PO ; Start 04/11/20 at 09:00; Status UNV Cyanocobalamin (Vitamin B-12) 1,000 mcg DAILY PO Last administered on 04/11/20at 07:58; Start 04/11/20 at 09:00 Lactobacillus Rhamnosus (Culturelle) 1 cap DAILY PO Last administered on 04/11/20at 07:58; Start 04/11/20 at 09:00 Multivitamins (Thera M Plus) 1 tab DAILY PO Last administered on 04/11/20at 07:58; Start 04/11/20 at 09:00 Atorvastatin Calcium (Lipitor) 20 mg QHS PO Last administered on 04/10/20at 23:45; Start 04/11/20 at 00:00 Info (Anti-Coagulation Monitoring By Pharmacy) 1 each PRN DAILY PRN MC SEE COMMENTS Last administered on 04/11/20at 01:37; Start 04/10/20 at 23:30 Atorvastatin Calcium (Lipitor) 20 mg QHS PO ; Start 04/10/20 at 23:45; Status UNV Active Scripts Active Reported Pantoprazole Sodium (Pantoprazole Sodium) 40 Mg Tablet.dr 40 Mg PO DAILYAC Multaq (Dronedarone Hcl) 400 Mg Tablet 1 Tab PO BID Vitamin B12 (Cyanocobalamin (Vitamin B-12)) 2,500 Mcg Tablet 1,000 Mcg PO DAILY Calcium 500 + D Tablet (Calcium Carbonate/Vitamin D3) 1 Each Tablet 1 Each PO DAILY Losartan Potassium 50 Mg Tablet 25 Mg PO DAILY Proair Hfa (Albuterol Sulfate) 8.5 Gm Hfa.aer.ad 2 Puff INH PRN Q6HRS PRN Probiotic (Lactobacillus Acidophilus) 1 Each Capsule 1 Each PO DAILY Eliquis (Apixaban) 2.5 Mg Tablet 2.5 Mg PO BID Calcium + Vitamin D Tablet (Calcium Carbonate/Vitamin D3) 1 Each Tablet 1 Each PO BID Tylenol Extra Strength (Acetaminophen) 500 Mg Tablet 500 Mg PO PRN PRN Pravastatin Sodium 80 Mg Tablet 80 Mg PO HS NITROGLYCERIN SubLingual (Nitroglycerin) 0.4 Mg Tab.subl 1 Tab SL UD Multi-Day Vitamins (Multivitamin) 1 Each Tablet 1 Tab PO DAILY Diltiazem 24HR Cd (Diltiazem Hcl) 120 Mg Cap.er.24h 1 Cap PO DAILY Allergies Allergies: Coded Allergies: codeine (Verified Allergy, Intermediate, diarrhea, vomiting, 10/01/19) I S O L A T I O N *CONTACT* (Verified Allergy, Unknown, 10/01/19) ESBL ROS Review of System Review of Systems: General: Denies fever, chills, sweats, fatigue Eyes: Denies drainage, blurred vision, eye redness HENT: Denies rhinorrhea, sore throat, earache Respiratory: Denies cough, pos shortness of breath, no wheezing Cardiac: Denies edema, palpitations, chest pain GI: Denies abdominal pain, Nausea, vomiting MSK: Denies back pain, neck pain Skin: Denies rash, jaundice Neuro: Reports lightheadedness, headache 14 pt ros otherwise neg Neurological: Yes Dizziness, Yes Gait Disturbance Physical Exam Physical Exam General: Awake, alert, NAD. Well Nourished, well hydrated. Cooperative HEENT: Atraumatic, EOMI, PERRL, airway patent, moist oral mucosa Neck: Supple, trachea midline Respiratory: CTA bilaterally, normal effort, no wheezing/crackles CV: RRR, no murmur, cap refill <2 GI: Soft, nondistended, nontender, no masses MSK: No obvious deformities Skin: Warm, dry, intact Neuro: A&O x3, speech NL, 5/5 strength in BUE/BLE distally and proximally, CN 2- 12 intact, cerebellar testing normal General: Oriented X3, Cooperative, No acute distress HEENT: EOMI, Mucous membr. moist/pink Lungs: Normal air movement Heart: no gallops Breasts: Not examined Abdomen: Normal bowel sounds, Soft Rectal Exam: not examined PELVIC: Examination not indicated Extremities: No cyanosis Neuro: Normal speech, Cranial nerves 3-12 NL Psych/Mental Status: Mental status NL, Mood NL Vitals Vitals Vital Signs Date Time Temp Pulse Resp B/P (MAP) Pulse Ox O2 Delivery O2 Flow Rate FiO2 04/11/20 08:02 61 17 95 04/11/20 07:59 119/56 04/11/20 06:51 97.8 97.8 04/10/20 17:30 Room Air Labs Labs Laboratory Tests Test 04/10/20 17:30 04/10/20 18:10 Urine Collection Type Unknown Urine Color Paige Urine Clarity Clear Urine pH 6.0 (<5.0-8.0) Urine Specific [place] 1.015 (1.000-1.030) Urine Protein 30 mg/dL (NEG-TRACE) Urine Glucose (UA) Negative mg/dL (NEG) Urine Ketones (Stick) Negative mg/dL (NEG) Urine Blood Negative (NEG) Urine Nitrite Negative (NEG) Urine Bilirubin Negative (NEG) Urine Urobilinogen Dipstick 1.0 mg/dL (0.2 mg/dL) Urine Leukocyte Esterase Large (NEG) Urine RBC Rare /HPF (0-2) Urine WBC >40 /HPF (0-4) Urine Squamous Epithelial Cells Few /LPF Urine Bacteria 0 /HPF (0-FEW) Urine Mucus Slight /LPF White Blood Count 4.4 x10^3/uL (4.0-11.0) Red Blood Count 4.53 x10^6/uL (3.50-5.40) Hemoglobin 9.4 g/dL (12.0-15.5) Hematocrit 30.1 % (36.0-47.0) Mean Corpuscular Volume 67 fL (79-100) Mean Corpuscular Hemoglobin 21 pg (25-35) Mean Corpuscular Hemoglobin Concent 31 g/dL (31-37) Red Cell Distribution Width 23.6 % (11.5-14.5) Platelet Count 124 x10^3/uL (140-400) Neutrophils (%) (Auto) 54 % (31-73) Lymphocytes (%) (Auto) 16 % (24-48) Monocytes (%) (Auto) 24 % (0-9) Eosinophils (%) (Auto) 5 % (0-3) Basophils (%) (Auto) 1 % (0-3) Neutrophils # (Auto) 2.4 x10^3/uL (1.8-7.7) Lymphocytes # (Auto) 0.7 x10^3/uL (1.0-4.8) Monocytes # (Auto) 1.1 x10^3/uL (0.0-1.1) Eosinophils # (Auto) 0.2 x10^3/uL (0.0-0.7) Basophils # (Auto) 0.0 x10^3/uL (0.0-0.2) Segmented Neutrophils % 52 % (35-66) Band Neutrophils % 4 % (0-9) Lymphocytes % 12 % (24-48) Monocytes % 24 % (0-10) Eosinophils % 7 % (0-5) Basophils % 1 % (0-3) Platelet Estimate Adequate (ADEQUATE) Large Platelets Present Giant Platelets Present Hypochromasia Mod Poikilocytosis Slight Anisocytosis Mod Microcytosis Mod Sodium Level 135 mmol/L (136-145) Potassium Level 3.5 mmol/L (3.5-5.1) Chloride Level 103 mmol/L (98-107) Carbon Dioxide Level 23 mmol/L (21-32) Anion Gap 9 (6-14) Blood Urea Nitrogen 19 mg/dL (7-20) Creatinine 1.0 mg/dL (0.6-1.0) Estimated GFR (Cockcroft-Gault) 53.0 BUN/Creatinine Ratio 19 (6-20) Glucose Level 100 mg/dL (70-99) Calcium Level 8.6 mg/dL (8.5-10.1) Total Bilirubin 0.6 mg/dL (0.2-1.0) Aspartate Amino Transf (AST/SGOT) 36 U/L (15-37) Alanine Aminotransferase (ALT/SGPT) 30 U/L (14-59) Alkaline Phosphatase 158 U/L (46-116) Troponin I Quantitative < 0.017 ng/mL (0.000-0.055) C-Reactive Protein, Quantitative 132.6 mg/L (0-3.3) Total Protein 6.7 g/dL (6.4-8.2) Albumin 2.9 g/dL (3.4-5.0) Albumin/Globulin Ratio 0.8 (1.0-1.7) Laboratory Tests Test 04/10/20 17:30 04/10/20 18:10 Urine Collection Type Unknown Urine Color Paige Urine Clarity Clear Urine pH 6.0 (<5.0-8.0) Urine Specific [place] 1.015 (1.000-1.030) Urine Protein 30 mg/dL (NEG-TRACE) Urine Glucose (UA) Negative mg/dL (NEG) Urine Ketones (Stick) Negative mg/dL (NEG) Urine Blood Negative (NEG) Urine Nitrite Negative (NEG) Urine Bilirubin Negative (NEG) Urine Urobilinogen Dipstick 1.0 mg/dL (0.2 mg/dL) Urine Leukocyte Esterase Large (NEG) Urine RBC Rare /HPF (0-2) Urine WBC >40 /HPF (0-4) Urine Squamous Epithelial Cells Few /LPF Urine Bacteria 0 /HPF (0-FEW) Urine Mucus Slight /LPF White Blood Count 4.4 x10^3/uL (4.0-11.0) Red Blood Count 4.53 x10^6/uL (3.50-5.40) Hemoglobin 9.4 g/dL (12.0-15.5) Hematocrit 30.1 % (36.0-47.0) Mean Corpuscular Volume 67 fL (79-100) Mean Corpuscular Hemoglobin 21 pg (25-35) Mean Corpuscular Hemoglobin Concent 31 g/dL (31-37) Red Cell Distribution Width 23.6 % (11.5-14.5) Platelet Count 124 x10^3/uL (140-400) Neutrophils (%) (Auto) 54 % (31-73) Lymphocytes (%) (Auto) 16 % (24-48) Monocytes (%) (Auto) 24 % (0-9) Eosinophils (%) (Auto) 5 % (0-3) Basophils (%) (Auto) 1 % (0-3) Neutrophils # (Auto) 2.4 x10^3/uL (1.8-7.7) Lymphocytes # (Auto) 0.7 x10^3/uL (1.0-4.8) Monocytes # (Auto) 1.1 x10^3/uL (0.0-1.1) Eosinophils # (Auto) 0.2 x10^3/uL (0.0-0.7) Basophils # (Auto) 0.0 x10^3/uL (0.0-0.2) Segmented Neutrophils % 52 % (35-66) Band Neutrophils % 4 % (0-9) Lymphocytes % 12 % (24-48) Monocytes % 24 % (0-10) Eosinophils % 7 % (0-5) Basophils % 1 % (0-3) Platelet Estimate Adequate (ADEQUATE) Large Platelets Present Giant Platelets Present Hypochromasia Mod Poikilocytosis Slight Anisocytosis Mod Microcytosis Mod Sodium Level 135 mmol/L (136-145) Potassium Level 3.5 mmol/L (3.5-5.1) Chloride Level 103 mmol/L (98-107) Carbon Dioxide Level 23 mmol/L (21-32) Anion Gap 9 (6-14) Blood Urea Nitrogen 19 mg/dL (7-20) Creatinine 1.0 mg/dL (0.6-1.0) Estimated GFR (Cockcroft-Gault) 53.0 BUN/Creatinine Ratio 19 (6-20) Glucose Level 100 mg/dL (70-99) Calcium Level 8.6 mg/dL (8.5-10.1) Total Bilirubin 0.6 mg/dL (0.2-1.0) Aspartate Amino Transf (AST/SGOT) 36 U/L (15-37) Alanine Aminotransferase (ALT/SGPT) 30 U/L (14-59) Alkaline Phosphatase 158 U/L (46-116) Troponin I Quantitative < 0.017 ng/mL (0.000-0.055) C-Reactive Protein, Quantitative 132.6 mg/L (0-3.3) Total Protein 6.7 g/dL (6.4-8.2) Albumin 2.9 g/dL (3.4-5.0) Albumin/Globulin Ratio 0.8 (1.0-1.7) Images Images Bilateral lower extremity arterial Doppler ultrasound HISTORY: Leg cramps. TECHNIQUE: Color Doppler, grayscale and duplex analysis performed of the right and left lower extremity arterial structures, from the common femoral artery through the runoff vessels. COMPARISON: None are available All velocity measurements are in centimeters per second. Right leg: Triphasic waveforms throughout. No visualized plaque. Velocities range from 47 through 109. No critical segmental velocity elevation is seen. Left leg: Triphasic waveforms throughout. No visible plaque. Elevation of velocity at the posterior tibial artery of 187. The popliteal artery velocity proximal to this is 80. IMPRESSION: 1. Velocity elevation at the left posterior tibial artery raising the question of a proximal stenosis. 2. Otherwise no evidence of significant atherosclerotic disease. Electronically signed by: Steve Fountain MD (03/09/2019 2:35 PM) [id number] DICTATED and SIGNED BY: STEVE FOUNTAIN MD DATE: 03/09/19 1435 MRI of the Brain without and with Contrast 04/14/2018 Clinical History: Recurrent left-sided facial numbness. Technique: Unenhanced T1-weighted sagittal and axial and FLAIR, T2-weighted, gradient echo and diffusion-weighted axial images of the brain were obtained. After the intravenous administration of 6 cc of Gadavist, enhanced T1-weighted axial and coronal images of the brain were obtained. Findings: No previous studies are available for comparison. There is generalized parenchymal atrophy. Patchy and small scattered areas of abnormally increased signal intensity are seen within the periventricular and subcortical white matter of both cerebral hemispheres on the FLAIR and T2-weighted images consistent with areas of mild small vessel ischemic disease. No acute parenchymal abnormality is seen. No abnormal area of contrast enhancement is noted. No extra-axial fluid collection is seen. There is no MRI evidence of acute ischemia/infarction. Mild mucosal thickening is seen scattered throughout the ethmoid air cells bilaterally. Normal flow voids are seen within the major vascular structures surrounding the brain parenchyma. Impression: No acute parenchymal abnormality is seen. Electronically signed by: Nile Barrientos MD (04/14/2018 2:54 PM) [id number] DICTATED and SIGNED BY: NILE BARRIENTOS MD DATE: 04/14/18 1445 EXAM: CHEST 1 VIEW History: Cough, shortness of breath COMPARISON: 04/10/2020 TECHNIQUE: Single portable radiograph of the chest FINDINGS: The cardiac silhouette is unremarkable. Minimal prominent bilateral interstitial lung markings.. The costophrenic sulci are clear and well demarcated. Calcified granuloma right lung base. IMPRESSION: Probable minimal congestive changes. Electronically signed by: Dwayne Lemons MD (04/11/2020 10:34 AM) [id number] DICTATED and SIGNED BY: DWAYNE LEMONS MD POST EXERCISE Reason for Termination: Infusion complete Max HR: 118 bpm Max Blood Pressure: 133/64mmHg Blood Pressure response to exercise: Normal blood pressure response during stress. Heart Rate response to exercise: WNL Chest Pain: Yes. See Stress Symptoms Arrhythmia: No. ST Change: Yes. See Stress Symptoms INTERPRETATION Stress EKG Conclusion: Suspect atrial fibrillation with a LBBB. No acute ischemic changes. Imaging Protocol IMAGE PROTOCOL: Rest Tc-99m/stress Tc-99m 1 day Rest: Stress: Viability: Radiopharm. Tc99m Sestamibi Tc99m Sestamibi Dose 11mCi 31mCi Duration 13min. 13min. Img Date 09/07/2019 09/07/2019 Inj-Img Time 60min. 45min. Rest Admin Site: IV - Left Antecubital Fiberglass Roving Winder: RT Michelle (R)(N) Stress Admin Site: IV - Left Antecubital Fiberglass Roving Winder: RT Michelle (R)(N) STRESS DATA End Diast. Vol. 79.0ml Av. Heart Rate 73.0bpm End Syst. Vol. 26.0ml CO Index BSA 0.0L/min Myocardial Mass 125.0g Eject. Fraction 67.0% Stress Rates Pk. Fill Rate 2.96EDV/sec LVtime Pk. Fill 129.08msec Pk. Empty Rate 3.57ESV/sec LVtime Pk. Eject 223.69msec 1/3 Pk. Fill 1.82EDV/sec Stress Scores Regional WT 0.00 Summed WT 1.00 Regional WM 0.00 Summed WM 4.00 The rest and stress images show normal perfusion, normal contraction and thickening. LV Perf. Quant 17 Seg. SSS 2.00 17 Seg. SRS 1.00 17 Seg. SDS 2.00 Stress Defect Extent (% LAD) 11.90 Rest Defect Extent (% LAD) 0.00 Rev. Defect Extent (% LAD) 0.60 Stress Defect Extent (% LCX) 0.00 Rest Defect Extent (% LCX) 0.00 Rev. Defect Extent (% LCX) 0.00 Stress Defect Extent (% RCA) 0.00 Rest Defect Extent (% RCA) 0.00 Rev. Defect Extent (% RCA) 0.00 Stress Defect Extent (% JD) 4.10 Rest Defect Extent (% JD) 0.00 Rev. Defect Extent (% JD) 0.20 Other Information Quality:Fair Risk Assessment: Low Risk Conclusion 1. Non-diagnostic EKG for stress due to LBBB. 2. Normal perfusion at stress/rest. 3. Low risk study. 4. EF > 60%. Signed by : Louann Colunga, Electronically Approved : 09/07/2019 12:34:01 DICTATED and SIGNED BY: LOUANN COLUNGA MD DATE: 09/07/19 1011 INDICATIONS Atrial fibrillation COMPLICATIONS None PROCEDURAL DETAILS An informed consent was obtained from patient. Anesthesiology team gave intravenous propofol for deep sedation. Patient was then administered 200 J of synchronized biphasic DC current with successful conversion of rhythm from atrial fibrillation to sinus rhythm. She was hemodynamically stable without any neurological deficits at the end of procedure. She tolerated the procedure well. CONCLUSIONS Successful external cardioversion of atrial fibrillation to sinus rhythm. MATTHEW MARIE MD Oct 01, 2019 12:11 SIGNED BY: MATTHEW MARIE MD DATE: 10/01/19 1211 cc: MATTHEW MARIE MD; CAMERON TAYLOR MD~ Mitral Valve MV E Velocity 81.0cm/s MV E Peak Gr. 6mmHg MV DECEL TIME 131ms MV A Velocity 89.0cm/s MV E Mean Gr. 3mmHg E/A Ratio 0.9 Pulmonary Valve PV Peak Velocity 106.8cm/s Tricuspid Valve TR P. Velocity 263cm/s RAP ESTIMATE 3mmHg TR Peak Gr. 28mmHg RVSP 31mmHg Pulmonary Vein S1 Velocity 53.7cm/s D2 Velocity 35.4cm/s LEFT VENTRICLE The left ventricle is normal size. There is normal left ventricular wall thickness. The left ventricular systolic function is mildly reduced. EF 45-50%. Septal motion suggestive of prior CABG and conduction defect. Transmitral Doppler flow pattern is Grade I-abnormal relaxation pattern. RIGHT VENTRICLE The right ventricle is normal size. The right ventricular systolic function is normal. ATRIA The left atrium size is normal. The right atrium size is normal. The interatrial septum is intact with no evidence for an atrial septal defect or patent foramen ovale as noted on 2-D or Doppler imaging. AORTIC VALVE The aortic valve is thickened but opens well. Doppler and Color Flow revealed trace aortic regurgitation. There is no significant aortic valvular stenosis. MITRAL VALVE The mitral valve is thickened but opens well. There is no evidence of mitral valve prolapse. There is no mitral valve stenosis. Doppler and Color-flow revealed mild mitral regurgitation. TRICUSPID VALVE The tricuspid valve is normal in structure and function. Doppler and Color Flow revealed mild tricuspid regurgitation with an estimated PAP of 31 mmHg. There is no tricuspid valve stenosis. PULMONIC VALVE The pulmonic valve is not well visualized. Doppler and Color Flow revealed no pulmonic valvular regurgitation. There is no pulmonic valvular stenosis. GREAT VESSELS The aortic root is normal in size. The ascending aorta is normal in size. The IVC is normal in size and collapses >50% with inspiration. PERICARDIAL EFFUSION There is no pleural effusion. There is no evidence of significant pericardial effusion. Critical Notification Critical Value: No <Conclusion> The left ventricular systolic function is mildly reduced. EF 45-50%. Septal motion suggestive of prior CABG and conduction defect. Doppler and Color-flow revealed mild mitral regurgitation. Signed by : Louann Colunga, Electronically Approved : 07/24/2019 08:37:01 EXAM: AP View of the chest DATE: 04/10/2020 5:34 PM INDICATION: weak COMPARISON: No Prior FINDINGS: Heart is not enlarged. Aortic calcifications are seen. No lobar consolidation. Calcified granuloma right lung base. No pleural effusion or pneumothorax. IMPRESSION: 1. No radiographic evidence for acute cardiopulmonary process. Electronically signed by: Les Tay MD (04/10/2020 6:57 PM) [facility] and SIGNED BY: LES TAY MD DATE: 04/10/201856 VTE Prophylaxis Ordered VTE Prophylaxis Devices: No VTE Pharmacological Prophylaxi: Yes Assessment/Plan Assessment/Plan impression Acute congestive heart failure, combined echo 2018 left ventricular systolic function is mildly reduced. EF 45-50%. Septal motion suggestive of prior CABG and conduction defect. hypertension GERD HX A-FIB ON ELIQUIS plan======== admit consult cardiology lasix 20 mg iv now x 1 in ER HOLD home meds PT/OT TELE Justicifation of Admission Dx: Justifications for Admission: Justification of Admission Dx: N/A CHEN ODELL MD Apr 11, 2020 09:03
--- NOTE | 2020-04-11 10:37 | RAD ---
EXAM: CHEST 1 VIEW History: Cough, shortness of breath COMPARISON: 04/10/2020 TECHNIQUE: Single portable radiograph of the chest FINDINGS: The cardiac silhouette is unremarkable. Minimal prominent bilateral interstitial lung markings.. The costophrenic sulci are clear and well demarcated. Calcified granuloma right lung base. IMPRESSION: Probable minimal congestive changes. Electronically signed by: Dwayne Lemons MD (04/11/2020 10:34 AM) [id number]
[2020-04-11] MEDS ORDERED: FUROSEMIDE 20 MG/2 ML VIAL. IVP ONE (11:15)
--- NOTE | 2020-04-11 11:48 | NUR ---
1100 Dr. Rangel at bedside. Pt. with CXR changes and increased shortness of breath. IVF stopped and lab and med orders rec'd. Pt. placed back on telemetry and order to change to tele bed placed. Consults entered by Dr. Rangel.
--- NOTE | 2020-04-11 14:57 | PDOC2 ---
GI CONSULT Date of Service: DATE: 04/11/20 TIME: 14:43 Reason For Consult: weakness, anemia HPI: HPI: 84 y/o female seen in ER. Diagnosed w/ UTI int he past couple days, outpt treatment didn't help. Has ALYSHA. The patient denies GI complaints including any obvious bleeding, reflux (though takes pantoprazole), dysphagia, n/v, abd pain, diarrhea, and constipation. (Reviewed other notes - nausea and diarrhea mentioned - she denies.) Her daughter says she has noted decreased appetite and weight loss over the past few years - more recently. Colonoscopy 2013 (Dr. Alvarado): diverticulosis EGD 2017 (Dr. Adames for dysphagia): Schatzki's ring dilated to 54Fr, non- erosive gastritis. Barium Swallow 05/2018: weak pharyngeal peristalsis with vallecular and piriform sinus residue, one episode of nancy aspiration occurred during the exam, decreased peristaltic activity in the thoracic esophagus. Videoswallow 06/2018: decreased pharyngeal peristalsis with moderate vallecular and piriform sinus residue, no current evidence of aspiration. No GB, liver, pancreas, or PUD history. H/o A Fib on Eliquis. Intolerant to PO iron in the past (constipation). On B12. PMH: PMH: A Fib, HTN, TN, HLD, LBBB, venous insufficiency, OA cardioversion, hysterectomy, rectocele/cystocele repair (though chart suggests colon resection) FH: Family History: Cancer Social History: Smoke: No ALCOHOL: none Drugs: None ROS: GEN: Denies fevers, chills, sweats HEENT: Denies blurred vision, sore throat CV: Denies chest pain RESP: Denies shortness of air, cough GI: Per HPI : Denies hematuria, dysuria ENDO: Denies weight changes NEURO: Denies confusion, dizziness MSK: +weakness SKIN: Denies jaundice, pruritus Vitals: Vitals: Vital Signs Date Time Temp Pulse Resp B/P (MAP) Pulse Ox O2 Delivery O2 Flow Rate FiO2 04/11/20 09:50 99 Room Air 04/11/20 08:02 61 17 04/11/20 07:59 119/56 04/11/20 06:51 97.8 97.8 Labs: Labs: Laboratory Tests Test 04/10/20 17:30 04/10/20 18:10 04/11/20 11:53 Urine Collection Type Unknown Urine Color Paige Urine Clarity Clear Urine pH 6.0 (<5.0-8.0) Urine Specific [place] 1.015 (1.000-1.030) Urine Protein 30 mg/dL (NEG-TRACE) Urine Glucose (UA) Negative mg/dL (NEG) Urine Ketones (Stick) Negative mg/dL (NEG) Urine Blood Negative (NEG) Urine Nitrite Negative (NEG) Urine Bilirubin Negative (NEG) Urine Urobilinogen Dipstick 1.0 mg/dL (0.2 mg/dL) Urine Leukocyte Esterase Large (NEG) Urine RBC Rare /HPF (0-2) Urine WBC >40 /HPF (0-4) Urine Squamous Epithelial Cells Few /LPF Urine Bacteria 0 /HPF (0-FEW) Urine Mucus Slight /LPF White Blood Count 4.4 x10^3/uL (4.0-11.0) Red Blood Count 4.53 x10^6/uL (3.50-5.40) Hemoglobin 9.4 g/dL (12.0-15.5) Hematocrit 30.1 % (36.0-47.0) Mean Corpuscular Volume 67 fL (79-100) Mean Corpuscular Hemoglobin 21 pg (25-35) Mean Corpuscular Hemoglobin Concent 31 g/dL (31-37) Red Cell Distribution Width 23.6 % (11.5-14.5) Platelet Count 124 x10^3/uL (140-400) Neutrophils (%) (Auto) 54 % (31-73) Lymphocytes (%) (Auto) 16 % (24-48) Monocytes (%) (Auto) 24 % (0-9) Eosinophils (%) (Auto) 5 % (0-3) Basophils (%) (Auto) 1 % (0-3) Neutrophils # (Auto) 2.4 x10^3/uL (1.8-7.7) Lymphocytes # (Auto) 0.7 x10^3/uL (1.0-4.8) Monocytes # (Auto) 1.1 x10^3/uL (0.0-1.1) Eosinophils # (Auto) 0.2 x10^3/uL (0.0-0.7) Basophils # (Auto) 0.0 x10^3/uL (0.0-0.2) Segmented Neutrophils % 52 % (35-66) Band Neutrophils % 4 % (0-9) Lymphocytes % 12 % (24-48) Monocytes % 24 % (0-10) Eosinophils % 7 % (0-5) Basophils % 1 % (0-3) Platelet Estimate Adequate (ADEQUATE) Large Platelets Present Giant Platelets Present Hypochromasia Mod Poikilocytosis Slight Anisocytosis Mod Microcytosis Mod Sodium Level 135 mmol/L (136-145) Potassium Level 3.5 mmol/L (3.5-5.1) Chloride Level 103 mmol/L (98-107) Carbon Dioxide Level 23 mmol/L (21-32) Anion Gap 9 (6-14) Blood Urea Nitrogen 19 mg/dL (7-20) Creatinine 1.0 mg/dL (0.6-1.0) Estimated GFR (Cockcroft-Gault) 53.0 BUN/Creatinine Ratio 19 (6-20) Glucose Level 100 mg/dL (70-99) Calcium Level 8.6 mg/dL (8.5-10.1) Iron Level 11 ug/dL (50-170) Total Iron Binding Capacity 298 ug/dL (250-450) Iron Saturation 4 % (15-34) Total Bilirubin 0.6 mg/dL (0.2-1.0) Aspartate Amino Transf (AST/SGOT) 36 U/L (15-37) Alanine Aminotransferase (ALT/SGPT) 30 U/L (14-59) Alkaline Phosphatase 158 U/L (46-116) Troponin I Quantitative < 0.017 ng/mL (0.000-0.055) C-Reactive Protein, Quantitative 132.6 mg/L (0-3.3) SP-Lfz-F-Type Natriuretic Peptide 2012 pg/mL (0-449) 2157 pg/mL (0-449) Total Protein 6.7 g/dL (6.4-8.2) Albumin 2.9 g/dL (3.4-5.0) Albumin/Globulin Ratio 0.8 (1.0-1.7) Allergies: Coded Allergies: codeine (Verified Allergy, Intermediate, diarrhea, vomiting, 10/01/19) I S O L A T I O N *CONTACT* (Verified Allergy, Unknown, 2/3/20) ESBL Medications: Current Medications Medications (Trade) Dose Ordered Sig/Emilio Route PRN Reason Start Time Stop Time Status Last Admin Dose Admin Sodium Chloride 1,000 ml @ 1,000 mls/hr 1X ONCE IV 04/10/20 18:15 04/10/20 19:14 DC 04/10/20 18:51 Ceftriaxone Sodium (Rocephin) 1 gm 1X ONCE IVP 04/10/20 19:45 04/10/20 19:46 DC 04/10/20 19:55 Sodium Chloride 1,000 ml @ 75 mls/hr [id number] IV 04/10/20 20:19 04/11/20 11:06 DC 04/10/20 22:13 Apixaban (Eliquis) 2.5 mg BID PO 04/11/20 00:00 04/11/20 07:58 Diltiazem HCl (Cardizem 24hr Cd) 120 mg QHS PO 04/11/20 00:00 04/10/20 23:32 Dronedarone (Multaq) 400 mg BID PO 04/11/20 00:00 04/11/20 07:59 Pantoprazole Sodium (Protonix) 40 mg DAILYAC PO 04/11/20 07:30 04/11/20 07:58 Calcium/Vitamin D (Oscal D 500mg/ 200uts) 1 tab BIDWMEALS PO 04/11/20 08:00 04/11/20 07:58 Cyanocobalamin (Vitamin B-12) 1,000 mcg DAILY PO 04/11/20 09:00 04/11/20 07:58 Lactobacillus Rhamnosus (Culturelle) 1 cap DAILY PO 04/11/20 09:00 04/11/20 07:58 Multivitamins (Thera M Plus) 1 tab DAILY PO 04/11/20 09:00 04/11/20 07:58 Atorvastatin Calcium (Lipitor) 20 mg QHS PO 04/11/20 00:00 04/10/20 23:45 Info (Anti-Coagulation Monitoring By Pharmacy) 1 each PRN DAILY PRN MC SEE COMMENTS 04/10/20 23:30 04/11/20 01:37 Furosemide (Lasix) 20 mg 1X ONCE IVP 04/11/20 11:15 04/11/20 11:16 DC 04/11/20 11:33 Imaging: Imaging: CXR 04/10 IMPRESSION: 1. No radiographic evidence for acute cardiopulmonary process. CXR 04/11 IMPRESSION: Probable minimal congestive changes. PE: GEN: NAD, daughter Josefina present HEENT: Atraumatic, PERRL LUNGS: CTAB HEART: RRR ABD: NABS, S/ND/NT EXTREMITY: No edema SKIN: No rashes, no jaundice NEURO/PSYCH: A & O 3 A/P: A/P: UTI, elevated BNP ALYSHA - anemic in the past, current Hgb not outside of baseline ?GERD - on PPI, she denies chronic symptoms H/o dysphagia - not now, past esophageal dilation ineffective Decreased appetite, weight loss CRC screen - last in 2013 Diverticulosis Elevated Alk Phos H/o A Fib on Eliquis -- Monitor Hgb. No plans for inpt 'scopes. She also doesn't seem too interested in repeating as outpt. Continue PPI. Should resume iron in some form - if doesn't want PO, consider infusion - she (politely) didn't seem interested in either at this time. KAMLA WALLACE Apr 11, 2020 14:57
[2020-04-11 16:30] VITALS: BP 139/63
[2020-04-11 19:00] VITALS: BP 123/61
[2020-04-11] MEDS: ATORVASTATIN CALCIUM 20 MG TABLET PO SCH (20:39)
[2020-04-11 23:00] VITALS: BP 111/70
--- NOTE | 2020-04-12 01:52 | CONS ---
DATE OF CONSULTATION: 04/11/2020 REASON FOR CONSULTATION: History of atrial fibrillation and weakness. HISTORY OF PRESENT ILLNESS: The patient is a pleasant 84-year-old woman who presented to the Emergency Department on the evening of 04/10 for weakness. She apparently was feeling some lightheadedness and has been treated for a UTI on outpatient basis and this has not improved and therefore, she presented to the ER. She today denies any specific cardiovascular limitations and overall has been feeling well. Her history dates back to several months ago when she was similarly seen in the setting of an infection and found to have atrial fibrillation. She was cardioverted twice, but did not have any significant improvement. She was still in atrial fibrillation and was advised to continue medical therapy. In this setting, she reports that she went to the ER and they apparently had to do CPR on her for some sort of arrhythmia or hypotension. The details of this are very unclear. Nonetheless, ultimately she went from our medical center and apparently is now following at [facility] with Dr. Spivey and has been on Multaq therapy for her atrial fibrillation and apparently had her third cardioversion and has apparently been in sinus rhythm. She reports compliance with her medications. Denies any other acute cardiac issues. PAST MEDICAL HISTORY: 1. Atrial fibrillation. 2. Dyslipidemia. 3. GERD. 4. Diverticulosis. 5. Esophagitis, esophageal dysmotility. SOCIAL HISTORY: No alcohol, tobacco or illicit drug use. FAMILY HISTORY: Noncontributory. ALLERGIES: CODEINE. PHYSICAL EXAMINATION: HEAD AND NECK: Unremarkable. CARDIAC: Regular rate and rhythm. LUNGS: Clear. ABDOMEN: Soft. EXTREMITIES: No edema. NEUROLOGIC: No focal deficits. MUSCULOSKELETAL: No trauma. DIAGNOSTIC STUDIES: Hemoglobin 9.4. Creatinine within normal limits. BNP elevated at 2157 with a C-reactive protein of 132. Previous echocardiogram with an ejection fraction of 45%. Chest x-ray on 04/11, has mild congestive changes. IMPRESSION: 1. Acute on chronic mild diastolic heart failure, likely secondary to fluid overload from treatment for her urinary tract infection/sepsis. 2. Chronic cardiovascular comorbidities including hypertension and dyslipidemia. 3. Paroxysmal atrial fibrillation, currently in sinus rhythm. RECOMMENDATIONS: From a cardiac standpoint, no further medication changes necessary. Continue present medical therapy. Supportive care. Please call with further questions. LOUANN ROMERO MD DR: MARIELA/lane JOB#: [id number] / [id number]
[2020-04-12 03:00] VITALS: BP 118/54
[2020-04-12 07:00] VITALS: BP 122/63
[2020-04-12] MEDS: PANTOPRAZOLE 40 MG TABLET.DR. PO SCH (08:15)
[2020-04-12] MEDS: CALCIUM CARB/VIT D3 500/200 TABLET. PO SCH (08:17)
[2020-04-12] MEDS: MULTIVITAMIN with MINERAL TABLET. PO SCH (08:17)
[2020-04-12] MEDS: CYANOCOBALAMIN (VITAMIN B-12) 1,000 MCG TABLET. PO SCH (08:17)
[2020-04-12] MEDS: APIXABAN 2.5 MG TABLET. PO SCH (08:17)
[2020-04-12] MEDS: LACTOBACILLUS RHAMNOSUS GG 1 CAPSULE. PO SCH (08:17)
[2020-04-12] MEDS: ANTI-COAG MONITOR BY PHARMACY. MC PRN (10:23)
[2020-04-12 10:47] VITALS: BP 118/54
[2020-04-12] MEDS: DRONEDARONE HCL 400 MG TABLET PO SCH (10:47)
[2020-04-12] MEDS ORDERED: AMOX1TAB61 PO (11:26)
[2020-04-12] MEDS ORDERED: FERR-36 PO (11:50)
--- NOTE | 2020-04-12 12:32 | PDOC ---
[employer] PROGRESS NOTE Date of Service DOS: DATE: 04/12/20 TIME: 12:22 Chief Complaint Chief Complaint UTI Acute congestive heart failure, combined echo 2019 left ventricular systolic function is mildly reduced. EF 45-50%. Septal motion suggestive of prior CABG and conduction defect. hypertension GERD HX A-FIB ON ELIQUIS History of Present Illness History of Present Illness 04/12/2020 Patient is seen and examined Patient is sitting up and in NAD Discussed change in antibiotics with patient Charts reviewed Discussed with RN Vitals/I&O Vitals/I&O: Vital Signs Date Time Temp Pulse Resp B/P (MAP) Pulse Ox O2 Delivery O2 Flow Rate FiO2 04/12/20 10:47 66 118/54 04/12/20 08:00 Room Air 04/12/20 07:00 97.4 18 95 97.4 I & O 04/11/20 04/11/20 04/12/20 14:59 22:59 06:59 Intake Total 900 ml 100 ml Output Total 325 ml Balance 900 ml -325 ml 100 ml Physical Exam General: Oriented X3, Cooperative, No acute distress Heart: Regular rate, No murmurs Lungs: Clear Abdomen: Normal bowel sounds, Soft Extremities: No cyanosis Skin: No significant lesion Review of Systems Review of Systems: All systems are otherwise negative Assessment and Plan Assessmemt and Plan Problems Medical Problems: (1) Diarrhea Status: Acute (2) UTI (urinary tract infection) Status: Acute (3) Weakness Status: Acute Assessment UTI Acute congestive heart failure, combined echo 2019 left ventricular systolic function is mildly reduced. EF 45-50%. Septal motion suggestive of prior CABG and conduction defect. hypertension GERD HX A-FIB ON ELIQUIS Plan Encourage PO intake IV Antibiotics Iron supplementation Trend Hgb Home Meds Probable D/C home this afternoon Comment Review of Relevant I have reviewed the following items nacho (where applicable) has been applied. Medications: Current Medications Medications (Trade) Dose Ordered Sig/Emilio Route PRN Reason Start Time Stop Time Status Last Admin Dose Admin Diltiazem HCl (Cardizem 24hr Cd) 120 mg DAILY08 PO 04/12/20 08:00 04/12/20 08:17 Justicifation of Admission Dx: Justifications for Admission: Justification of Admission Dx: N/A SUSANNAH HARDY III DO Apr 12, 2020 12:31
--- NOTE | 2020-04-12 12:37 | DS ---
DATE OF DISCHARGE: 04/12/2020 ADMISSION DIAGNOSES: Urinary tract infection that failed outpatient p.o. antibiotics. DISCHARGE DIAGNOSES: Resolving urinary tract infection, history of bronchitis, atrial fibrillation, hypertension, myocardial infarction, leukopenia, colon prolapse, left bundle branch block, hysterectomy, colon resection, cataract surgery. HOSPITAL COURSE: The patient is a pleasant older female who presented with UTI. She was weak. She had been placed on p.o. Ceftin, but she states her symptoms just seemed to worsen. We admitted the patient overnight for IV antibiotics and she got a dose of Rocephin. This morning, I saw her and examined her. Her heart tones were normal. Lungs were clear. She wants to go home. She looks great. We plan to discharge. I am going to give her a prescription for p.o. Augmentin. DISPOSITION: Home. ACTIVITY: As tolerated. DIET: Low sodium. MEDICATIONS: Please see the MRAD. TOTAL TIME: 32 minutes. SUSANNAH HARDY DO DR: RUDY/lane JOB#: [id number] / [id number]
--- NOTE | 2020-04-12 13:00 | NUR ---
Discharge Note: KENDELL BOUCHER Discharge instructions and discharge home medications reviewed with Patient and a copy given. All questions have been answered and understanding verbalized. Pt given script for antibiotic. Given education on taking PO iron [id number].
--- NOTE | 2020-04-17 12:22 | DS ---
DATE OF DISCHARGE: 04/12/2020 ADMISSION DIAGNOSES: Urinary tract infection and weakness. DISCHARGE DIAGNOSES: Resolving urinary tract infection and resolving weakness. HOSPITAL COURSE: The patient is a pleasant 84-year-old female who presented with UTI and weakness. She was admitted. We gave her IV antibiotics and fluids. The next day, she was like new. We discharged to home on p.o. antibiotics. DISPOSITION: Home. ACTIVITY: As tolerated. DIET: Low sodium. MEDICATIONS: Please see the MRAD. TOTAL TIME: 32 minutes. SUSANNAH HARDY DO DR: RUDY/lane JOB#: [id number] / [id number]
== END 2020-04-12 11:50 | disposition home or self-care (01) | DRG 689 ==
LOC: ER 17:08 → ED HOLD 20:00 → OBSVTOIN 04-11 11:05 → 2 NORTH 04-11 16:33
PROVIDERS: ADMIT Internal Medicine; ATTEND Internal Medicine
DX: N39.0 Urinary tract infection, site not specified (principal); I50.43 Acute on chronic combined systolic (congestive) and diastolic (congestive) heart failure; I11.0 Hypertensive heart disease with heart failure; I48.0 Paroxysmal atrial fibrillation; D50.9 Iron deficiency anemia, unspecified; E78.5 Hyperlipidemia, unspecified; I25.2 Old myocardial infarction; I44.7 Left bundle-branch block, unspecified; J84.10 Pulmonary fibrosis, unspecified; K21.9 Gastro-esophageal reflux disease without esophagitis; M19.90 Unspecified osteoarthritis, unspecified site; K57.90 Diverticulosis of intestine, part unspecified, without perforation or abscess without bleeding; K59.00 Constipation, unspecified; Z79.01 Long term (current) use of anticoagulants; Z82.49 Family history of ischemic heart disease and other diseases of the circulatory system; Z95.1 Presence of aortocoronary bypass graft; Z90.49 Acquired absence of other specified parts of digestive tract; Z90.710 Acquired absence of both cervix and uterus; Z79.899 Other long term (current) drug therapy; Z88.5 Allergy status to narcotic agent
CPT/HCPCS: 36415; 71045; 80053; 81001; 83540; 83550; 83880; 84484; 85007; 85025; 86140; 93005; 94760; 96361; 96374; G0378; G0379; J0696; J1940; J7030; 99285-25

== ENCOUNTER → 2020-07-29 | Outpatient (CLI) | payer MEDICARE, BC ==
[~2020-07-29] MED LIST changes: +AMOX1TAB61 PO; +DRON400T PO; +FERR-36 PO; +PANT40TA77 PO
--- NOTE | 2020-07-29 16:56 | KCIC ---
Lumbar spine AP, lateral and oblique x-rays 5 views HISTORY: Low back pain. Compression fractures. Degenerative disc disease. FINDINGS: S-shaped lumbar scoliosis. No spondylolysis defect. Lumbar vertebral body height and alignment are intact. There is grade 1 anterolisthesis of L4 on L5. Disc height loss and disc osteophytes at T12-L1 and L2-L3, and marked disc height loss at L4-L5 and L5-S1. Abdominal aortic calcified plaque. IMPRESSION: No acute osseous injury. Lumbar scoliosis and changes of degenerative disc disease. Electronically signed by: Anjum Lockhart MD (07/29/2020 4:54 PM) [facility]
== END ==
LOC: KCIC 12:26
PROVIDERS: ATTEND Family Medicine
DX: M51.36 Other intervertebral disc degeneration, lumbar region (principal); M43.16 Spondylolisthesis, lumbar region; M25.78 Osteophyte, vertebrae; I70.0 Atherosclerosis of aorta; M41.86 Other forms of scoliosis, lumbar region
CPT/HCPCS: 72110

== ENCOUNTER → 2020-09-01 | Outpatient (CLI) | payer MEDICARE, BC ==
[~2020-09-01] MED LIST changes: -DRON400T PO; +DRON400T6 PO
--- NOTE | 2020-09-01 16:06 | KCIC ---
MRI of the lumbar spine without contrast 09/01/2020 CLINICAL HISTORY: Low back pain which is worsening over last several months TECHNIQUE: Unenhanced T1-weighted and T2-weighted sagittal and axial and inversion recovery sagittal images the lumbar spine were obtained. FINDINGS: Comparison is made to radiographs lumbar spine dated 07/29/2020. Mild S-shaped curvature of the thoracolumbar spine is seen. Mild anterolisthesis of L4 in relation L5 and L5 in relation to S1 is noted. Degenerative signal changes and varying loss of height are seen i nvolving all the disks of the lumbar spine. Degenerative signal changes are seen within the marrow vicente rrounding these discs. The conus medullaris is normal morphology, position, and signal characteristic s. At the L1-2 disc space there is a mild generalized disc bulge. Degenerative changes are seen involvin g the facet joints bilaterally. These findings do not result in significant central spinal canal or n eural foraminal stenosis. At the L2-3 disc space there is a mild to moderate generalized disc bulge. Degenerative changes are s een involving the facet joints bilaterally. There is mild ligamentum flavum hypertrophy bilaterally. These findings when combined do not result in significant central spinal canal or neural foraminal st enosis. At the L3-4 disc space there is a mild generalized disc bulge. Degenerative changes are seen involvin g the facet joints bilaterally. There is mild to moderate ligamentum flavum hypertrophy bilaterally. These findings result in mild central spinal canal stenosis. No neural foraminal stenosis is seen. At the L4-5 disc space there is a mild to moderate generalized disc bulge. This is eccentric to the l eft. Degenerative changes are seen involving the facet joints bilaterally. There are small facet join t effusions bilaterally. There is moderate ligamentum flavum hypertrophy bilaterally. These findings results in moderate to severe central spinal canal stenosis. Moderate to severe left neural foraminal stenosis is seen. The right neural foramen is patent. At the L5-S1 disc space there is a moderate generalized disc bulge. Superimposed on this disc bulge i s a central/right paracentral focal disc protrusion. This measures 3 mm in AP diameter. Degenerative changes are seen involving the facet joints bilaterally. There is mild to moderate ligamentum flavum hypertrophy bilaterally. These findings when combined result in mild central spinal canal stenosis. M ild bilateral neural foraminal stenosis is seen. IMPRESSION: The changes of degenerative disc disease are seen throughout the lumbar spine. These find ings result in mild central spinal canal stenosis at L3-4 and L5-S1 and moderate to severe central sp inal canal stenosis at L4-5. Moderate to severe left neural foraminal stenosis is seen at L4-5. Mild bilateral neural foraminal stenosis is seen at L5-S1. Electronically signed by: Nile Barrientos MD (09/01/2020 4:04 PM) [id number]
== END ==
LOC: KCIC MRI 10:33
PROVIDERS: ATTEND Family Medicine
DX: M51.36 Other intervertebral disc degeneration, lumbar region (principal); M51.27 Other intervertebral disc displacement, lumbosacral region; M48.07 Spinal stenosis, lumbosacral region; M47.817 Spondylosis without myelopathy or radiculopathy, lumbosacral region; M89.38 Hypertrophy of bone, other site
CPT/HCPCS: 72148

== ENCOUNTER → 2021-04-22 | Outpatient (CLI) | payer MEDICARE, BC ==
[~2021-04-22] MED LIST changes: -DOXY100C2 PO; +DOXY100C3 PO
--- NOTE | 2021-04-22 11:14 | KCIC ---
EXAM: Left thumb, 3 views. HISTORY: Thumb pain and locking. COMPARISON: None. FINDINGS: 3 views of the left thumb are obtained. There is no fracture, dislocation or subluxation. T here is no radiodense foreign body. There is no suspicious osseous lesion. There are suspected degene rative subchondral cysts involving the lunate. There is no convincing osteonecrosis cortical collapse . There is widening of the scapholunate joint space. IMPRESSION: 1. No acute osseous finding or radiodense foreign body. 2. Scapholunate joint space widening suggesting scapholunate ligament injury. 3. Degenerative subchondral cysts within the lunate. Electronically signed by: Micaela Shelley MD (04/22/2021 11:12 AM) [id number]
== END ==
LOC: KCIC 09:51
PROVIDERS: ATTEND Family Medicine
DX: M65.312 Trigger thumb, left thumb (principal); M25.842 Other specified joint disorders, left hand
CPT/HCPCS: 73140

== ENCOUNTER 2021-09-10 12:25 | Emergency (ER) | payer MEDICARE, BC ==
[~2021-09-10] VITALS: Ht 157.5 cm; Wt 53.5 kg
[~2021-09-10 12:25] MED LIST changes: +ATOR40TA59 PO; +CLOP75TA PO; +LATA7.5D OS; +METO25TA4 PO; +PHEN100T82 PO; +PROP15DR EACHEYE; +ROPI0.254 PO; +TRAM50TA PO
[2021-09-10 12:55] LABS: BILIRUBIN,URINE NEGATIVE (NEG); CLARITY,URINE CLEAR; COLOR,URINE YELLOW; NITRITE,URINE NEGATIVE (NEG); PH,URINE 7.5 (<5.0-8.0); PROTEIN,URINE NEGATIVE (NEG-TRACE); UROBILINOGEN,URINE 0.2 mg/dL (0.2 mg/dL)
[2021-09-10] MEDS ORDERED: IV NORMAL SALINE 1000ML BAG 1,000 ML IV ONE (13:00)
--- NOTE | 2021-09-10 13:01 | EKG ---
[facility] [address] [place] [address] Test Date: 2021-09-10 Test Time: 12:43:45 Pat Name: KENDELL BOUCHER Department: Room: Gender: F Automation Consultant: : 1935 Requested By: YASMIN TSE Order Number: [id number] Reading MD: Joe Baer Measurements Intervals [place] Rate: 61 P: 0 [place]: 210 QRS: -78 QRSD: 134 T: 78 QT: 430 QTc: 434 Interpretive Statements SINUS RHYTHM ABNORMAL LEFT AXIS DEVIATION NON SPECIFIC INTRAVENTRICULAR BLOCK QRS(T) CONTOUR ABNORMALITY CONSISTENT WITH ANTEROSEPTAL INFARCT PROBABLY OLD Electronically Signed On 09-12-2021 16:07:41 LEHR ATTENDANT by Joe Baer
[2021-09-10 13:04] LABS: BACTERIA,URINE 0 /HPF (0-FEW); RBC,URINE 0 /HPF (0-2); WBC,URINE OCC /HPF (0-4)
--- NOTE | 2021-09-10 13:09 | PHYS DOC ---
Past Medical History Past Medical History: A-Fib, Bronchitis, Hypertension, [place], Other Additional Past Medical Histor: LEUKOPENIA, COLON PROLASPE, L bundle branch block Past Surgical History: Hysterectomy, Other Additional Past Surgical Histo: COLON RESECTION, cataract removal, stent Smoking Status: Never Smoker Alcohol Use: None Drug Use: None Adult General Chief Complaint Chief Complaint: DIZZY/LIGHT HEADED HPI HPI Patient is a 85 year old female presenting to the emergency department for evaluation of dizziness that she describes as a lightheaded sensation that has been going on all day today. She says that it is most noticeable whenever she sits up or stands up she feels very lightheaded but she has not passed out or had vertigo. She says she has had mild nausea but no vomiting chest pain shortness of breath fevers chills. She says she does feel slight nasal congestion. She says she has been fully vaccinated against the COVID virus. She said that she recently did have heart catheterization with stent placement. She is in no acute distress with normal vital signs except she does have mildly decreased diastolic blood pressure and is slightly bradycardic but she says her resting heart rate is 55. Review of Systems Review of Systems Constitutional: Denies fever or chills [] Eyes: Denies change in visual acuity, redness, or eye pain [] HENT: Denies nasal congestion or sore throat [] Respiratory: Denies cough or shortness of breath [] Cardiovascular: No additional information not addressed in HPI [] GI: Denies abdominal pain, positive nausea but no vomiting : Denies dysuria or hematuria [] Musculoskeletal: Denies back pain or joint pain [] Integument: Denies rash or skin lesions [] Neurologic: Denies headache, focal weakness or sensory changes [] Endocrine: Denies polyuria or polydipsia [] All other systems were reviewed and found to be within normal limits, except as documented in this note. Current Medications Current Medications Current Medications Medications (Trade) Dose Ordered Sig/Emilio Start Time Stop Time Status Last Admin Dose Admin Ondansetron HCl (Zofran) 4 mg 1X ONCE 09/10/21 13:15 09/10/21 13:16 DC 09/10/21 13:23 4 MG Sodium Chloride 1,000 ml @ 1,000 mls/hr 1X ONCE 09/10/21 13:00 09/10/21 13:59 DC 09/10/21 13:23 1,000 MLS/HR Allergies Allergies Allergies Coded Allergies Type Severity Reaction Last Updated Verified codeine Adverse Reaction Intermediate diarrhea, vomiting 09/10/21 Yes Physical Exam Physical Exam Constitutional: Well developed, well nourished, no acute distress, non-toxic appearance. [] HENT: Normocephalic, atraumatic, bilateral external ears normal, oropharynx moist, no oral exudates, nose normal. [] Eyes: PERRLA, EOMI, conjunctiva normal, no discharge. [] Neck: Normal range of motion, no tenderness, supple, no stridor. [] Cardiovascular:Heart rate regular rhythm, no murmur [] Lungs & Thorax: Bilateral breath sounds clear to auscultation [] Abdomen: Bowel sounds normal, soft, no tenderness, no masses, no pulsatile masses. [] Skin: Warm, dry, no erythema, no rash. [] Back: No tenderness, no CVA tenderness. [] Extremities: No tenderness, no cyanosis, no clubbing, ROM intact, no edema. [] Neurologic: Alert and oriented X 3, normal motor function, normal sensory function, no focal deficits noted. [] Psychologic: Affect normal, judgement normal, mood normal. [] Current Patient Data Vital Signs Vital Signs Date Time Temp Pulse Resp B/P (MAP) Pulse Ox O2 Delivery O2 Flow Rate FiO2 09/10/21 13:20 66 16 129/64 (85) 97 09/10/21 12:35 98.5 Room Air 98.5 Lab Values Laboratory Tests Test 09/10/21 12:37 09/10/21 13:05 09/10/21 13:58 Urine Collection Type Unknown Urine Color Yellow Urine Clarity Clear Urine pH 7.5 (<5.0-8.0) Urine Specific [place]ola 1.010 (1.000-1.030) Urine Protein Negative mg/dL (NEG-TRACE) Urine Glucose (UA) Negative mg/dL (NEG) Urine Ketones (Stick) Negative mg/dL (NEG) Urine Blood Negative (NEG) Urine Nitrite Negative (NEG) Urine Bilirubin Negative (NEG) Urine Urobilinogen Dipstick 0.2 mg/dL (0.2 mg/dL) Urine Leukocyte Esterase Trace (NEG) Urine RBC 0 /HPF (0-2) Urine WBC Occ /HPF (0-4) Urine Bacteria 0 /HPF (0-FEW) White Blood Count 4.2 x10^3/uL (4.0-11.0) Red Blood Count 4.97 x10^6/uL (3.50-5.40) Hemoglobin 11.4 g/dL (12.0-15.5) L Hematocrit 36.6 % (36.0-47.0) Mean Corpuscular Volume 74 fL (79-100) L Mean Corpuscular Hemoglobin 23 pg (25-35) L Mean Corpuscular Hemoglobin Concent 31 g/dL (31-37) Red Cell Distribution Width 29.5 % (11.5-14.5) H Platelet Count 114 x10^3/uL (140-400) L Neutrophils (%) (Auto) 74 % (31-73) H Lymphocytes (%) (Auto) 10 % (24-48) L Monocytes (%) (Auto) 14 % (0-9) H Eosinophils (%) (Auto) 1 % (0-3) Basophils (%) (Auto) 2 % (0-3) Neutrophils # (Auto) 3.1 x10^3/uL (1.8-7.7) Lymphocytes # (Auto) 0.4 x10^3/uL (1.0-4.8) L Monocytes # (Auto) 0.6 x10^3/uL (0.0-1.1) Eosinophils # (Auto) 0.0 x10^3/uL (0.0-0.7) Basophils # (Auto) 0.1 x10^3/uL (0.0-0.2) Platelet Estimate Decreased (ADEQUATE) Large Platelets Present Hypochromasia Mod Poikilocytosis Slight Anisocytosis Marked Microcytosis Slight Ovalocytes Few Sodium Level 137 mmol/L (136-145) Potassium Level 3.9 mmol/L (3.5-5.1) Chloride Level 104 mmol/L (98-107) Carbon Dioxide Level 23 mmol/L (21-32) Anion Gap 10 (6-14) Blood Urea Nitrogen 15 mg/dL (7-20) Creatinine 0.8 mg/dL (0.6-1.0) Estimated GFR (Cockcroft-Gault) 68.3 BUN/Creatinine Ratio 19 (6-20) Glucose Level 106 mg/dL (70-99) H Calcium Level 9.0 mg/dL (8.5-10.1) Total Bilirubin 0.7 mg/dL (0.2-1.0) Aspartate Amino Transferase (AST) 16 U/L (15-37) Alanine Aminotransferase (ALT) 21 U/L (14-59) Alkaline Phosphatase 101 U/L (46-116) Troponin I High Sensitivity 8 ng/L (4-50) GB-Jda-D-Type Natriuretic Peptide 1104 pg/mL (0-449) H Total Protein 6.9 g/dL (6.4-8.2) Albumin 3.4 g/dL (3.4-5.0) Albumin/Globulin Ratio 1.0 (1.0-1.7) Thyroid Stimulating Hormone (TSH) 2.078 uIU/mL (0.358-3.74) SARS-CoV-2 Antigen (Rapid) Positive (NEGATIVE) *A Laboratory Tests 09/10/21 13:05 Laboratory Tests 09/10/21 13:05 EKG EKG Normal sinus rhythm at 61 bpm with left axis deviation no ST elevation however there appears to be mild ST depression V5 and V6 and an inverted T wave in aVL Radiology/Procedures Radiology/Procedures [] Course & Med Decision Making Course & Med Decision Making I will check labs treat her with IV fluids and reassess. Patient has labs that are at or near her baseline and her chest x-ray appears normal. Patient has been feeling poorly for the past 3 days with fatigue and dizziness but has been worse today. Her work-up revealed that she is positive for COVID despite triple vaccination. Patient says she lives by herself. Her vital signs are all normal including an oxygen saturation of 98% on room air. I offered admission to the hospital even though technically she does not meet any admission criteria but more so as she lives by herself if she needed any support. Patient refused stating she feels that she can take care of herself at home. I told her she will likely continue to be dizzy and recommending sitting and standing up very slowly so she does not get orthostatic as easily. I told her to drink plenty of fluids and follow with her primary care provider on Tuesday for recheck and to check her oxygen levels at home and if they are persistently below 92% to come back to the emergency department. Patient aware and agreeable with plan for discharge and verbalized understanding of the above instructions. Dragon Disclaimer Dragon Disclaimer This electronic medical record was generated, in whole or in part, using a voice recognition dictation system. Departure Departure Impression: Primary Impression: Orthostatic dizziness Additional Impressions: COVID-19 virus infection Generalized weakness Disposition: HOME / SELF CARE / HOMELESS Condition: STABLE Referrals: CAMERON TAYLOR MD (PCP) Additional Instructions: You have been tested for or diagnosed with COVID-19. It is an infection caused by a new type of coronavirus. COVID-19 will cause cold-like or mild flu symptoms in most. It can cause more severe symptoms like problems breathing in some. There is no treatment for COVID-19. The body will clear the infection over time. Self-care will help to ease discomfort. Steps to Take: Self-Care Rest as needed. Healthy habits may help you feel better. Steps include: Choose healthy foods including fruits and vegetables. Drink water throughout the day. Get plenty of sleep each night. If you smoke, try to quit. It may ease breathing. Avoid alcohol. Keep Others Healthy The virus can spread to others. Droplets are released every time you sneeze or cough. The droplets can get into the mouth, nose, or eyes of people near you and lead to infection. To lower the chances of spreading COVID-19 to others: Stay at home until your doctor has said it is safe to leave. If you tested positive this will mean staying isolated until both of the following are true: At least 7 days have passed since the start of illness. You are free of fever for at least 72 hours without the use of medicine. During this time: - Avoid public areas, events, or transportation. Do not return to work or school until your doctor has said it is safe to do so. - Call ahead if you need to go to a medical center. Let them know you may have COVID-19. It will help them guide you where to go. They may also ask you to wear a facemask when you come to the office. - If you call for emergency medical services, let them know you may have COVID- 19. While at home: - Try to avoid close contact with others. Stay about 6 feet away. - If possible, spend most of your time in a separate room from others. - Use a face mask if you will be in close contact with others such as sharing a room or vehicle. - Have someone wipe down common surfaces in the home. Use household x ray electronics wiring technician every day on areas like doorknobs, counters, or sinks. - Cough or sneeze into a tissue. Throw the tissue away right after use. If a tissue is not available, cough or sneeze into your elbow. - Wash your hands often. Wash them after sneezing or coughing. Use soap and water and wash for at least 20 seconds. Alcohol based hand millstone cleaner can be used if soap and water is not available. - Do not prepare food for others. Avoid sharing personal items like forks, spoons, or toothbrushes. - Avoid close contact with pets while you are sick. There is no evidence of the virus passing to pets. This is a safety step until more is known about this virus. Isolation can be frustrating. Social interaction can help. Keep in touch with friends and family through phone and tech options. You can still interact with others in your home, just keep a safe distance of about 6 feet. Follow-up: Your doctors office will check in with you to see if there are any changes in your health. You may be asked to keep track of symptoms to share with them. They will also let you know when you are clear to be in public again. Problems to Look Out For: Contact your doctor if your recovery is not going as you expect. Get emergency care if you have problems such as: - Trouble breathing - Nonstop chest pain or pressure - Changes in awareness, confusion, or problems waking - Lips or face have bluish color - Worsening of symptoms If you think you have an emergency, call for emergency medical services right away. As taken from [facility] Ondansetron (ONDANSETRON ODT) 4 Mg Tab.rapdis 4 MG PO QID PRN for NAUSEA/VOMITING for 3 Days, #12 TAB Prov: YASMIN TSE DO 09/10/21 Problem Qualifiers YASMIN TSE DO Sep 10, 2021 13:09
--- NOTE | 2021-09-10 13:13 | RAD ---
XR CHEST 1V 09/10/2021 12:54 PM INDICATION: Dizziness, congestion COMPARISON: 08/17/2021 TECHNIQUE: Portable frontal view of the chest is provided. FINDINGS: The cardiomediastinal silhouette is within normal limits. Lungs are clear. There are no significant pleural effusions. There is no pulmonary vascular congestion. No pneumothora x. No suspicious osseous abnormality. IMPRESSION: There is no acute cardiopulmonary process. Electronically signed by: Marietta Chase MD (09/10/2021 1:11 PM) [facility]
[2021-09-10] MEDS ORDERED: ONDANSETRON PF 4 MG/2 ML VIAL. IVP ONE (13:15)
[2021-09-10 13:16] LABS: BASO # 0.1 x10^3/uL (0.0-0.2); BASO % 2 % (0-3); EOS % 1 % (0-3); HEMATOCRIT 36.6 % (36.0-47.0); HEMOGLOBIN 11.4 g/dL (12.0-15.5); LYMPH # 0.4 x10^3/uL (1.0-4.8); LYMPH % 10 % (24-48); MEAN CORPUSCULAR HEMOGLOBIN 23 pg (25-35); MEAN CORPUSCULAR HGB CONC 31 g/dL (31-37); MEAN CORPUSCULAR VOLUME 74 fL (79-100); MONO # 0.6 x10^3/uL (0.0-1.1); MONO % 14 % (0-9); NEUT # 3.1 x10^3/uL (1.8-7.7); NEUT % 74 % (31-73); PLATELET COUNT 114 x10^3/uL (140-400); RED BLOOD COUNT 4.97 x10^6/uL (3.50-5.40); RED CELL DISTRIBUTION WIDTH 29.5 % (11.5-14.5); WHITE BLOOD COUNT 4.2 x10^3/uL (4.0-11.0)
[2021-09-10 13:38] LABS: CREATININE 0.8 mg/dL (0.6-1.0); GFR 68.3; POTASSIUM 3.9 mmol/L (3.5-5.1)
[2021-09-10 13:44] LABS: ALBUMIN 3.4 g/dL (3.4-5.0); TOTAL BILIRUBIN 0.7 mg/dL (0.2-1.0); TOTAL PROTEIN 6.9 g/dL (6.4-8.2)
[2021-09-10 13:54] LABS: PLT ESTIMATE DECREASED (ADEQUATE)
[2021-09-10 13:55] LABS: ANISOCYTOSIS MARKED; HYPOCHROMIA MOD; MICROCYTOSIS SLIGHT; OVALOCYTES FEW; POIKILOCYTOSIS SLIGHT
[2021-09-10 14:20] VITALS: BP 125/57
[2021-09-10] MEDS ORDERED: ONDA4TAB12 PO (15:04)
== END 2021-09-10 15:23 | disposition home or self-care (01) ==
LOC: ER 12:25
DX: U07.1 COVID-19 (principal); R42 Dizziness and giddiness; R53.1 Weakness; Z88.5 Allergy status to narcotic agent; I10 Essential (primary) hypertension; I48.91 Unspecified atrial fibrillation; I25.2 Old myocardial infarction; Z95.5 Presence of coronary angioplasty implant and graft
CPT/HCPCS: 36415; 71045; 80053; 81001; 83880; 84443; 84484; 85025; 87086; 87426; 93005; 96361; 96374; 99285; J2405; J7030

== ENCOUNTER → 2021-09-23 | Outpatient (CLI) | payer MEDICARE, BC ==
[2021-09-10 14:20] VITALS: BP 125/57
[~2021-09-23] MED LIST changes: +ONDA4TAB12 PO
[2021-09-23 14:49] LABS: BASO % 1 % (0-3); EOS # 0.2 x10^3/uL (0.0-0.7); EOS % 4 % (0-3); HEMATOCRIT 40.8 % (36.0-47.0); HEMOGLOBIN 12.5 g/dL (12.0-15.5); LYMPH # 0.9 x10^3/uL (1.0-4.8); LYMPH % 18 % (24-48); MEAN CORPUSCULAR HEMOGLOBIN 23 pg (25-35); MEAN CORPUSCULAR HGB CONC 31 g/dL (31-37); MEAN CORPUSCULAR VOLUME 76 fL (79-100); MONO # 0.5 x10^3/uL (0.0-1.1); MONO % 10 % (0-9); NEUT # 3.4 x10^3/uL (1.8-7.7); NEUT % 68 % (31-73); PLATELET COUNT 118 x10^3/uL (140-400); RED BLOOD COUNT 5.39 x10^6/uL (3.50-5.40); RED CELL DISTRIBUTION WIDTH 30.4 % (11.5-14.5); WHITE BLOOD COUNT 5.1 x10^3/uL (4.0-11.0)
[2021-09-23 15:31] LABS: PLT ESTIMATE DECREASED (ADEQUATE)
[2021-09-23 15:32] LABS: ANISOCYTOSIS MARKED; HYPOCHROMIA SLIGHT; MICROCYTOSIS SLIGHT; OVALOCYTES PRESENT; POIKILOCYTOSIS PRESENT; SCHISTOCYTES FEW
[2021-09-25 10:15] LABS: KAPPA FREE 17.9 mg/L (3.3-19.4); KAPPA LAMBDA RATIO 1.49 (0.26-1.65)
[2021-09-25 14:19] LABS: IMMUNOGLOBULIN A 60 mg/dL (64-422); IMMUNOGLOBULIN G 803 mg/dL (586-1602); IMMUNOGLOBULIN M 71 mg/dL (26-217)
[2021-09-25 15:18] LABS: ALBUM 4.1 g/dL (2.9-4.4); ALPHA 1 0.3 g/dL (0.0-0.4); ALPHA 2 0.7 g/dL (0.4-1.0); BETA 0.8 g/dL (0.7-1.3); GAMMA 0.8 g/dL (0.4-1.8); PROTEIN TOTAL 6.6 g/dL (6.0-8.5); SPEP AG RATIO 1.6 (0.7-1.7)
== END ==
LOC: ONCLAB 14:07
PROVIDERS: ATTEND Internal Medicine Hematology & Oncology
DX: D64.9 Anemia, unspecified (principal)
CPT/HCPCS: 36415; 82525; 82607; 82668; 82728; 82746; 82784; 83010; 83020; 83520; 83540; 83550; 84165; 85025; 85045; 86334

== ENCOUNTER → 2021-11-13 | Outpatient (CLI) | payer MEDICARE, BC ==
[2021-11-13 13:40] LABS: BASO % 1 % (0-3); EOS # 0.1 x10^3/uL (0.0-0.7); EOS % 5 % (0-3); HEMATOCRIT 42.3 % (36.0-47.0); HEMOGLOBIN 13.3 g/dL (12.0-15.5); LYMPH # 0.7 x10^3/uL (1.0-4.8); LYMPH % 22 % (24-48); MEAN CORPUSCULAR HEMOGLOBIN 26 pg (25-35); MEAN CORPUSCULAR HGB CONC 31 g/dL (31-37); MEAN CORPUSCULAR VOLUME 83 fL (79-100); MONO # 0.4 x10^3/uL (0.0-1.1); MONO % 13 % (0-9); NEUT # 1.9 x10^3/uL (1.8-7.7); NEUT % 60 % (31-73); PLATELET COUNT 89 x10^3/uL (140-400); RED BLOOD COUNT 5.11 x10^6/uL (3.50-5.40); RED CELL DISTRIBUTION WIDTH 25.2 % (11.5-14.5); WHITE BLOOD COUNT 3.1 x10^3/uL (4.0-11.0)
[2021-11-13 14:19] LABS: PLT ESTIMATE DECREASED (ADEQUATE)
[2021-11-13 14:20] LABS: HYPOCHROMIA SLIGHT; OVALOCYTES MOD
[2021-11-13 14:21] LABS: ANISOCYTOSIS MOD; BIZZARE CELLS FEW
== END ==
LOC: ONCLAB 13:15
PROVIDERS: ATTEND Internal Medicine Hematology & Oncology
DX: D64.9 Anemia, unspecified (principal)
CPT/HCPCS: 36415; 82728; 83540; 83550; 85025

== ENCOUNTER 2022-01-16 09:00 | Inpatient (IN) | payer MEDICARE, BC ==
[~2022-01-16] VITALS: Ht 157.5 cm; Wt 49.7 kg
[2022-01-16] MEDS ORDERED: NITROGLYCERIN SUBLINGUAL 0.4 MG BOTTLE OF 25. SL PRN ×2 (09:30→13:45)
[2022-01-16] MEDS ORDERED: ASPIRIN CHEWABLE 81 MG TABLET. PO ONE (09:30)
[2022-01-16 09:42] LABS: BASO % 1 % (0-3); EOS # 0.1 x10^3/uL (0.0-0.7); EOS % 2 % (0-3); HEMATOCRIT 39.7 % (36.0-47.0); HEMOGLOBIN 12.9 g/dL (12.0-15.5); LYMPH # 0.5 x10^3/uL (1.0-4.8); LYMPH % 10 % (24-48); MEAN CORPUSCULAR HEMOGLOBIN 29 pg (25-35); MEAN CORPUSCULAR HGB CONC 33 g/dL (31-37); MEAN CORPUSCULAR VOLUME 88 fL (79-100); MONO # 0.4 x10^3/uL (0.0-1.1); MONO % 8 % (0-9); NEUT # 3.9 x10^3/uL (1.8-7.7); NEUT % 79 % (31-73); PLATELET COUNT 103 x10^3/uL (140-400); RED BLOOD COUNT 4.54 x10^6/uL (3.50-5.40); RED CELL DISTRIBUTION WIDTH 16.2 % (11.5-14.5)
--- NOTE | 2022-01-16 09:47 | PHYS DOC ---
Past Medical History Past Medical History: A-Fib, Bronchitis, CAD, High Cholesterol, Hypertension, [place], Other Additional Past Medical Histor: STENTS, LBBB Past Surgical History: Other Additional Past Surgical Histo: COLON RESECTION, cataract removal, stent Smoking Status: Never Smoker Alcohol Use: None Drug Use: None General Adult EDM: Chief Complaint: CHEST PAIN-CARDIAC NATURE HPI: HPI: Patient is an 86-year-old female who presents today with chest pain. Patient states around 7:00 this morning she started experiencing chest pain that radiated into her neck and left arm, she said she then felt like her heartbeat was irregular and she just was not feeling well. Patient states that approximately [address] Colunga DC'd her Plavix, and she states 6 months ago after her cardioversion they DC'd her Eliquis. Patient also states that she had stent placed last year in June, and she does have a past medical history of heart disease. Patient states she took 2 nitro this morning prior to arrival and she states that they did help her chest pain. Patient states she did not take her aspirin this morning because she has not eaten. Patient states she does not have shortness of breath with her chest pain but does feel like her stomach has a pit in it. Review of Systems: Review of Systems: Constitutional: Denies fever or chills. [] Eyes: Denies change in visual acuity. [] HENT: Denies nasal congestion or sore throat. [] Respiratory: Denies cough or shortness of breath. [] Cardiovascular: chest pain denies edema. [] GI: Denies abdominal pain, nausea, vomiting, bloody stools or diarrhea. [] : Denies dysuria. [] Musculoskeletal: Denies back pain or joint pain. [] Integument: Denies rash. [] Neurologic: Denies headache, focal weakness or sensory changes. [] Endocrine: Denies polyuria or polydipsia. [] Lymphatic: Denies swollen glands. [] Psychiatric: Denies depression or anxiety. [] Heart Score: C/O Chest Pain: Yes HEART Score for Chest Pain: HEART Score for Chest Pain Response (Comments) Value History Highly Suspicious 2 ECG Normal 0 Age > 65 2 Risk Factors 1 or 2 Risk Factors 1 Troponin < Normal Limit 0 Total 5 Risk Factors: Risk Factors: DM, Current or recent (<one month) smoker, HTN, HLP, family history of CAD, obesity. Risk Scores: Score 0 - 3: 2.5% MACE over next 6 weeks - Discharge Home Score 4 - 6: 20.3% MACE over next 6 weeks - Admit for Clinical Observation Score 7 - 10: 72.7% MACE over next 6 weeks - Early Invasive Strategies Current Medications: Current Medications Medications (Trade) Dose Ordered Sig/Emilio Start Time Stop Time Status Last Admin Dose Admin Aspirin (Aspirin Chewable) 324 mg 1X ONCE 01/16/22 09:30 01/16/22 09:34 DC 01/16/22 09:39 324 MG Nitroglycerin (Nitrostat) 0.4 mg PRN Q5MIN PRN 01/16/22 09:30 01/17/22 09:29 01/16/22 09:39 0.4 MG Allergies: Allergies: Allergies Coded Allergies Type Severity Reaction Last Updated Verified codeine Adverse Reaction Intermediate diarrhea, vomiting 09/10/21 Yes Physical Exam: PE: Constitutional: Well developed, well nourished, no acute distress, non-toxic appearance. [] HENT: Normocephalic, atraumatic, bilateral external ears normal, oropharynx moist, no oral exudates, nose normal. [] Eyes: PERRLA, EOMI, conjunctiva normal, no discharge. [] Neck: Normal range of motion, no tenderness, supple, no stridor. [] Cardiovascular:Heart rate irregular rhythm, no murmur [] Lungs & Thorax: Bilateral breath sounds clear to auscultation [] Abdomen: Bowel sounds normal, soft, no tenderness, no masses, no pulsatile masses. [] Skin: Warm, dry, no erythema, no rash. [] Back: No tenderness, no CVA tenderness. [] Extremities: No tenderness, no cyanosis, no clubbing, ROM intact, no edema. [] Neurologic: Alert and oriented X 3, normal motor function, normal sensory function, no focal deficits noted. [] Psychologic: Affect normal, judgement normal, mood normal. [] Current Patient Data: Labs: Laboratory Tests Test 01/16/22 09:16 01/16/22 09:57 White Blood Count 5.0 x10^3/uL Red Blood Count 4.54 x10^6/uL Hemoglobin 12.9 g/dL Hematocrit 39.7 % Mean Corpuscular Volume 88 fL Mean Corpuscular Hemoglobin 29 pg Mean Corpuscular Hemoglobin Concent 33 g/dL Red Cell Distribution Width 16.2 % Platelet Count 103 x10^3/uL Neutrophils (%) (Auto) 79 % Lymphocytes (%) (Auto) 10 % Monocytes (%) (Auto) 8 % Eosinophils (%) (Auto) 2 % Basophils (%) (Auto) 1 % Neutrophils # (Auto) 3.9 x10^3/uL Lymphocytes # (Auto) 0.5 x10^3/uL Monocytes # (Auto) 0.4 x10^3/uL Eosinophils # (Auto) 0.1 x10^3/uL Basophils # (Auto) 0.0 x10^3/uL Prothrombin Time 12.9 SEC Prothromb Time International Ratio 1.0 Activated Partial Thromboplast Time 27 SEC Troponin I High Sensitivity 11 ng/L [id number]-[id number]-Type Natriuretic Peptide 1520 pg/mL Sodium Level 140 mmol/L Potassium Level 4.0 mmol/L Chloride Level 107 mmol/L Carbon Dioxide Level 24 mmol/L Anion Gap 9 Blood Urea Nitrogen 20 mg/dL Creatinine 0.9 mg/dL Estimated GFR (Cockcroft-Gault) 59.5 BUN/Creatinine Ratio 22 Glucose Level 100 mg/dL Calcium Level 9.2 mg/dL Magnesium Level 1.9 mg/dL Total Bilirubin 1.2 mg/dL Aspartate Amino Transf (AST/SGOT) 19 U/L Alanine Aminotransferase (ALT/SGPT) 23 U/L Alkaline Phosphatase 122 U/L Total Protein 6.4 g/dL Albumin 3.4 g/dL Albumin/Globulin Ratio 1.1 Current Medications Medications (Trade) Dose Ordered Sig/Emilio Route PRN Reason Start Time Stop Time Status Last Admin Dose Admin Aspirin (Aspirin Chewable) 324 mg 1X ONCE PO 01/16/22 09:30 01/16/22 09:34 DC 01/16/22 09:39 Nitroglycerin (Nitrostat) 0.4 mg PRN Q5MIN PRN SL CP RATING > 10 01/16/22 09:30 01/17/22 09:29 01/16/22 09:39 Vital Signs: Vital Signs Date Time Temp Pulse Resp B/P (MAP) Pulse Ox O2 Delivery O2 Flow Rate FiO2 01/16/22 09:40 83 18 111/72 (85) 98 Room Air 01/16/22 09:39 94 120/69 01/16/22 09:03 98.2 90 20 120/69 (86) 99 Room Air 98.2 Vital Signs Date Time Temp Pulse Resp B/P (MAP) Pulse Ox O2 Delivery O2 Flow Rate FiO2 01/16/22 09:39 94 120/69 01/16/22 09:03 98.2 20 99 Room Air 98.2 EKG: EKG: EKG done at [address] Finley at 920 shows atrial fibrillation at a rate of 90 with PVCs noted no STEMI [] Radiology/Procedures: Radiology/Procedures: REASON: chest pain PROCEDURE: PORTABLE CHEST 1V INDICATION: Reason: chest pain / Spl. Instructions: / History: COMPARISON: September 10, 2021 FINDINGS: Frontal view of chest obtained. There are some disorganized pulmonary markings bilaterally. Hyperexpansion. Calcific atherosclerosis with cardiac silhouette similar to prior. No definite new consolidation IMPRESSION: * Similar exam compared to prior without a definite new region of airspace consolidation. Electronically signed by: Marino Mcbride MD (01/16/2022 9:54 AM) [id number] [] Course & Med Decision Making: Course & Med Decision Making Pertinent Labs and Imaging studies reviewed. (See chart for details) [] Dragon Disclaimer: Dragon Disclaimer: This electronic medical record was generated, in whole or in part, using a voice recognition dictation system. Departure Departure Impression: Primary Impression: Chest pain Qualified Codes: R07.9 - Chest pain, unspecified Disposition: ADMITTED INPATIENT Admitting Physician: HIMS Condition: STABLE Referrals: CAMERON TAYLOR MD (PCP) BIBI CHARLES APRN January 16, 2022 09:47
[2022-01-16 09:50] LABS: PROTHROMBIN TIME PATIENT 12.9 SEC (11.7-14.0)
--- NOTE | 2022-01-16 09:56 | RAD ---
INDICATION: Reason: chest pain / Spl. Instructions: / History: COMPARISON: September 10, 2021 FINDINGS: Frontal view of chest obtained. There are some disorganized pulmonary markings bilaterally. Hyperexpansion. Calcific atherosclerosis with cardiac silhouette similar to prior. No definite new consolidation IMPRESSION: * Similar exam compared to prior without a definite new region of airspace consolidation. Electronically signed by: Marino Mcbride MD (01/16/2022 9:54 AM) [id number]
[2022-01-16 10:19] LABS: CALCIUM 9.2 mg/dL (8.5-10.1); CREATININE 0.9 mg/dL (0.6-1.0); GFR 59.5
[2022-01-16 10:24] LABS: ALBUMIN 3.4 g/dL (3.4-5.0); ALBUMIN/GLOBULIN RATIO 1.1 (1.0-1.7); MAGNESIUM 1.9 mg/dL (1.8-2.4); TOTAL BILIRUBIN 1.2 mg/dL (0.2-1.0); TOTAL PROTEIN 6.4 g/dL (6.4-8.2)
[2022-01-16 11:09] LABS: PLT ESTIMATE ADEQUATE (ADEQUATE)
--- NOTE | 2022-01-16 11:30 | NUR ---
Patient came to the unit from ED around 10:45 am today. Stable, AO*4. Denies pain at the moment. Independent, vitals stable. Patient with family. Will continue monitoring.
[2022-01-16 12:00] VITALS: BP 119/79
--- NOTE | 2022-01-16 12:13 | HP ---
DATE OF SERVICE: 01/16/2022 ADMIT DATE: 01/16/2022 CHIEF COMPLAINT: Chest pain. HISTORY OF PRESENT ILLNESS: The patient is a pleasant 86-year-old female with a long history of atrial fibrillation and coronary artery disease. She has got stents. She was on chronic anticoagulation with Eliquis for several years. Apparently, she was taken off of it recently because she was back in sinus rhythm. Now she is back into atrial fibrillation. I discussed the case with ER physician. We are going to admit the patient and consult Cardiology. PAST MEDICAL HISTORY: Previous atrial fibrillation that had resolved, back to sinus rhythm, chronic anticoagulation, but that has been discontinued for a while, coronary artery disease, hypertension, hyperlipidemia, myocardial infarction, cardiac stents, left bundle branch block, history of colon resection, cataract removal, cardiac stents. ALLERGIES: CODEINE. FAMILY HISTORY: Coronary artery disease. SOCIAL HISTORY: She does not drink, smoke or take drugs. 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 MEDICATIONS: Reviewed. Please refer to the MRAD. REVIEW OF SYSTEMS: GENERAL: No history of weight change, weakness or fevers. SKIN: No bruising, hair changes or rashes. EYES: No blurred, double or loss of vision. NOSE AND THROAT: No history of nosebleeds, hoarseness or sore throat. HEART: No history of palpitations, chest pain or shortness of breath on exertion. LUNGS: Denies cough, hemoptysis, wheezing or shortness of breath. GASTROINTESTINAL: Denies changes in appetite, nausea, vomiting, diarrhea or constipation. GENITOURINARY: No history of frequency, urgency, hesitancy or nocturia. NEUROLOGIC: Denies history of numbness, tingling, tremor or weakness. PSYCHIATRIC: No history of panic, anxiety or depression. ENDOCRINE: No history of heat or cold intolerance, polyuria or polydipsia. EXTREMITIES: Denies muscle weakness, joint pain, pain on walking or stiffness. PHYSICAL EXAMINATION: VITALS: Within normal limits and are stable. GENERAL: No apparent distress. Alert and oriented. HEENT: Normal cephalic atraumatic, external auditory canals are patent. EYES: Extraocular muscles are intact, pupils are equally round and reactive to light and accommodation. MUSCULOSKELETAL: Well developed, well nourished, good range of motion. ENDOCRINE: No thyromegaly was palpated. LYMPHATICS: No cervical chain or axillary nodes were noted. HEMATOPOIETIC: No bruising. NECK: Supple, no JVD, no thyromegaly was noted. LUNGS: Clear to auscultation in all lung shepherd without rhonchi or wheezing. HEART: She has distant S1, S2 with irregular rhythm at 89 beats per minute. ABDOMEN: Soft, nontender. Positive bowel sounds no organomegaly, normal bowel sounds. EXTREMITIES: Without any cyanosis, clubbing, or edema. Pedal pulses intact, Homans sign is negative. NEUROLOGIC: Normal speech, normal tone. A and O x 3, moves all extremities, no obvious focal deficits. PSYCHIATRIC: Normal affect, normal mood. Stable. SKIN: No ulcerations or rashes, good skin turgor, no jaundice. VASCULAR: Good capillary refill, neurovascular bundle appears to be intact. DIAGNOSTIC IMAGING: Hematology is normal other than a low platelet count of 103. Electrolytes are normal other than a glucose of 100. BNP is 1520. Liver function tests are normal except for an alkaline phosphatase of 122. Chest x-ray, some chronic changes, but nothing acute. ASSESSMENT AND PLAN: Recurrent atrial fibrillation. The patient will be admitted. We will consult Cardiology. Serial enzymes, serial EKGs. We may need to resume her anticoagulation, but will await Cardiology input. Home meds. Deep venous thrombosis prophylaxis. Full code. RUDY/EDENILSON DR: Kiki TID: [id number]
[2022-01-16] MEDS ORDERED: ASPI-630 PO (13:30)
[2022-01-16] MEDS ORDERED: PANT40TA77 PO (13:30)
[2022-01-16 14:44] LABS: BACTERIA,URINE 0 /HPF (0-FEW); RBC,URINE 0 /HPF (0-2); WBC,URINE TNTC /HPF (0-4)
[2022-01-16 15:00] VITALS: BP 112/64
[2022-01-16] MEDS: CALCIUM CARB/VIT D3 500/200 TABLET. PO SCH (17:38)
[2022-01-16] MEDS: LACTOBACILLUS RHAMNOSUS GG 1 CAPSULE. PO SCH (17:38)
[2022-01-16 19:32] VITALS: BP 145/77
[2022-01-16] MEDS: DRONEDARONE HCL 400 MG TABLET PO SCH (20:11)
[2022-01-16] MEDS ORDERED: rOPINIRole 0.25 MG TABLET. PO SCH (21:00)
[2022-01-16] MEDS ORDERED: ATORVASTATIN CALCIUM 40 MG TABLET. PO SCH (21:00)
[2022-01-16 22:33] VITALS: BP 144/71
--- NOTE | 2022-01-17 01:23 | EKG ---
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
--- NOTE | 2022-01-17 01:48 | EKG ---
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
[2022-01-17 02:36] VITALS: BP 91/54
[2022-01-17 06:10] VITALS: BP 128/63
[2022-01-17] MEDS ORDERED: PANTOPRAZOLE 40 MG TABLET.DR. PO SCH (07:30)
[2022-01-17] MEDS: DRONEDARONE HCL 400 MG TABLET PO SCH (07:59)
[2022-01-17] MEDS: LACTOBACILLUS RHAMNOSUS GG 1 CAPSULE. PO SCH (07:59)
[2022-01-17] MEDS: CALCIUM CARB/VIT D3 500/200 TABLET. PO SCH (08:00)
[2022-01-17] MEDS ORDERED: ASPIRIN CHEWABLE 81 MG TABLET. PO SCH (09:00)
[2022-01-17] MEDS ORDERED: CYANOCOBALAMIN (VITAMIN B-12) 1,000 MCG TABLET. PO SCH (09:00)
--- NOTE | 2022-01-17 09:08 | PDOC2 ---
CONSULT Date of Consult Date of Consult DATE: 01/17/22 TIME: 09:07 Reason for Consult Reason for Consult: Chest pain Referring Physician Referring Physician: Dr. Herrera Identification/Chief Complaint Chief Complaint Chest pain Source Source: Chart review, Patient History of Present Illness Reason for Visit: 86-year-old female with history of coronary artery disease and paroxysmal atrial fibrillation s/p cardioversion presented complaining of left-sided chest pain radiating to left shoulder, arm and left side of the neck, sharp in nature, 7/10 severity lasting approximately 3 hours. She denied any exertional component. She had mild associated shortness of breath but denied any orthopnea/PND, palpitations or syncope. She also denied any TIA/CVA. Past Medical History Cardiovascular: AFIB, HTN, Other Pulmonary: No pertinent hx CENTRAL NERVOUS SYSTEM: Other GI: Diverticulosis, GERD Heme/Onc: No pertinent hx Hepatobiliary: No pertinent hx Psych: No pertinent hx Musculoskeletal: Osteoarthritis Rheumatologic: No pertinent hx Infectious disease: No pertinent hx Renal/: No pertinent hx Endocrine: No pertinent hx Past Surgical History Past Surgical History: Hysterectomy, Colon Resection Family History Family History: Heart Disease Social History Social History: Parent ALCOHOL: none Drugs: None Lives: Alone Domestic Violence: Neg Current Problem List Problem List Problems Medical Problems: (1) Chest pain Status: Acute Current Medications Current Medications Current Medications Aspirin (Aspirin Chewable) 324 mg 1X ONCE PO Last administered on 01/16/22at 09:39; Start 01/16/22 at 09:30; Stop 01/16/22 at 09:34; Status DC Nitroglycerin (Nitrostat) 0.4 mg PRN Q5MIN PRN SL CP RATING > 1/10 Last administered on 01/16/22at 09:39; Start 01/16/22 at 09:30; Stop 01/16/22 at 14:00; Status DC Nitroglycerin (Nitrostat) 0.4 mg PRN Q5MIN PRN SL CHEST PAIN Last administered on 01/16/22at 14:04; Start 01/16/22 at 13:45 Aspirin (Aspirin Chewable) 81 mg DAILY PO Last administered on 01/17/22at 08:00; Start 01/17/22 at 09:00 Atorvastatin Calcium (Lipitor) 40 mg QHS PO Last administered on 01/16/22at 20:11; Start 01/16/22 at 21:00 Dronedarone (Multaq) 400 mg BID PO Last administered on 01/17/22 07:59; Start 01/16/22 at 21:00 Pantoprazole Sodium (Protonix) 40 mg DAILYAC PO Last administered on 01/17/22at 08:00; Start 01/17/22 at 07:30 Ropinirole HCl (Requip) 0.25 mg HS PO Last administered on 01/16/22at 20:11; Start 01/16/22 at 21:00 Calcium/Vitamin D (Oscal D 500mg/ 200uts) 1 tab BIDWMEALS PO Last administered on 01/17/22at 08:00; Start 01/16/22 at 17:00 Cyanocobalamin (Vitamin B-12) 1,000 mcg DAILY PO Last administered on 01/17/22at 07:59; Start 01/17/22 at 09:00 Lactobacillus Rhamnosus (Culturelle) 1 cap DAILY PO Last administered on 01/17/22at 07:59; Start 01/16/22 at 09:00 Active Scripts Active Ondansetron Odt (Ondansetron) 4 Mg Tab.rapdis 4 Mg PO QID PRN 3 Days Metoprolol Tartrate 25 Mg Tablet 12.5 Mg PO BID 30 Days Atorvastatin Calcium 40 Mg Tablet 40 Mg PO QHS 30 Days Clopidogrel (Clopidogrel Bisulfate) 75 Mg Tablet 75 Mg PO DAILYWBKFT 30 Days Reported Aspirin 81 Mg Tab.chew 1 Tab PO DAILY Pantoprazole Sodium (Pantoprazole Sodium) 40 Mg Tablet.dr 40 Mg PO DAILYAC Ropinirole Hcl 0.25 Mg Tablet 0.25 Mg PO HS Latanoprost 0.005% Eye Drop (Latanoprost/Pf) 7.5 Ml Drops 1 Drop OS QHS Multaq (Dronedarone Hcl) 400 Mg Tablet 1 Tab PO BID Vitamin B12 (Cyanocobalamin (Vitamin B-12)) 2,500 Mcg Tablet 1,000 Mcg PO DAILY Probiotic (Lactobacillus Acidophilus) 1 Each Capsule 1 Each PO DAILY Eliquis (Apixaban) 2.5 Mg Tablet 2.5 Mg PO BID Calcium + Vitamin D Tablet (Calcium Carbonate/Vitamin D3) 1 Each Tablet 1 Each PO BID Tylenol Extra Strength (Acetaminophen) 500 Mg Tablet 500 Mg PO PRN PRN NITROGLYCERIN SubLingual (Nitroglycerin) 0.4 Mg Tab.subl 1 Tab SL UD Multi-Day Vitamins (Multivitamin) 1 Each Tablet 1 Tab PO DAILY Allergies Allergies: Coded Allergies: codeine (Verified Adverse Reaction, Intermediate, diarrhea, vomiting, 09/10/21) ROS PSYCHOLOGICAL ROS: No: Hallucinations Eyes: No Loss of vision HEENT: No: Epistaxis Respiratory: No: Hemoptysis Cardiovascular: yes Chest Pain Gastrointestinal: Yes Nausea Genitourinary: No Hematuria Neurological: No Seizures Skin: No Rash Physical Exam General: Alert, No acute distress HEENT: Atraumatic Lungs: Clear to auscultation Heart: Other (Heart rate is irregular) Abdomen: Soft, No tenderness Extremities: No edema Neuro: Normal speech Psych/Mental Status: Mood NL Vitals VITALS Vital Signs Date Time Temp Pulse Resp B/P (MAP) Pulse Ox O2 Delivery O2 Flow Rate FiO2 01/17/22 07:59 62 128/63 01/17/22 06:10 97.7 16 99 Room Air 97.7 Labs Labs Laboratory Tests Test 01/16/22 09:16 01/16/22 09:57 01/16/22 12:27 01/16/22 14:20 White Blood Count 5.0 x10^3/uL (4.0-11.0) Red Blood Count 4.54 x10^6/uL (3.50-5.40) Hemoglobin 12.9 g/dL (12.0-15.5) Hematocrit 39.7 % (36.0-47.0) Mean Corpuscular Volume 88 fL (79-100) Mean Corpuscular Hemoglobin 29 pg (25-35) Mean Corpuscular Hemoglobin Concent 33 g/dL (31-37) Red Cell Distribution Width 16.2 % (11.5-14.5) Platelet Count 103 x10^3/uL (140-400) Neutrophils (%) (Auto) 79 % (31-73) Lymphocytes (%) (Auto) 10 % (24-48) Monocytes (%) (Auto) 8 % (0-9) Eosinophils (%) (Auto) 2 % (0-3) Basophils (%) (Auto) 1 % (0-3) Neutrophils # (Auto) 3.9 x10^3/uL (1.8-7.7) Lymphocytes # (Auto) 0.5 x10^3/uL (1.0-4.8) Monocytes # (Auto) 0.4 x10^3/uL (0.0-1.1) Eosinophils # (Auto) 0.1 x10^3/uL (0.0-0.7) Basophils # (Auto) 0.0 x10^3/uL (0.0-0.2) Platelet Estimate Adequate (ADEQUATE) Large Platelets Present Prothrombin Time 12.9 SEC (11.7-14.0) Prothromb Time International Ratio 1.0 (0.8-1.1) Activated Partial Thromboplast Time 27 SEC (24-38) Troponin I High Sensitivity 11 ng/L (4-50) 12 ng/L (4-50) TV-Wnd-M-Type Natriuretic Peptide 1520 pg/mL (0-449) Sodium Level 140 mmol/L (136-145) Potassium Level 4.0 mmol/L (3.5-5.1) Chloride Level 107 mmol/L (98-107) Carbon Dioxide Level 24 mmol/L (21-32) Anion Gap 9 (6-14) Blood Urea Nitrogen 20 mg/dL (7-20) Creatinine 0.9 mg/dL (0.6-1.0) Estimated GFR (Cockcroft-Gault) 59.5 BUN/Creatinine Ratio 22 (6-20) Glucose Level 100 mg/dL (70-99) Calcium Level 9.2 mg/dL (8.5-10.1) Magnesium Level 1.9 mg/dL (1.8-2.4) Total Bilirubin 1.2 mg/dL (0.2-1.0) Aspartate Amino Transf (AST/SGOT) 19 U/L (15-37) Alanine Aminotransferase (ALT/SGPT) 23 U/L (14-59) Alkaline Phosphatase 122 U/L (46-116) Total Protein 6.4 g/dL (6.4-8.2) Albumin 3.4 g/dL (3.4-5.0) Albumin/Globulin Ratio 1.1 (1.0-1.7) Urine Collection Type Unknown Urine Color (Auto) Gilliam Urine Turbidity Hazy Urine pH (Auto) (<5.0-8.0) Urine Specific [place] (1.000-1.030) Urine Protein (Auto) mg/dL (Negative) Urine Glucose (Auto)(UA) mg/dL (Negative) Urine Ketones (Auto) mg/dL (Negative) Urine Blood (Auto) (Negative) Urine Nitrite (Auto) (Negative) Urine Bilirubin (Auto) (Negative) Urine Urobilinogen (Auto) mg/dL (Normal) Urine Leukocyte Esterase (Auto) (Negative) Urine RBC 0 /HPF (0-2) Urine WBC Tntc /HPF (0-4) Urine Squamous Epithelial Cells Many /LPF Urine Bacteria 0 /HPF (0-FEW) Urine Mucus Marked /LPF Test 01/16/22 16:00 Troponin I High Sensitivity 14 ng/L (4-50) Laboratory Tests Test 01/16/22 09:16 01/16/22 09:57 01/16/22 12:27 01/16/22 14:20 White Blood Count 5.0 x10^3/uL (4.0-11.0) Red Blood Count 4.54 x10^6/uL (3.50-5.40) Hemoglobin 12.9 g/dL (12.0-15.5) Hematocrit 39.7 % (36.0-47.0) Mean Corpuscular Volume 88 fL (79-100) Mean Corpuscular Hemoglobin 29 pg (25-35) Mean Corpuscular Hemoglobin Concent 33 g/dL (31-37) Red Cell Distribution Width 16.2 % (11.5-14.5) Platelet Count 103 x10^3/uL (140-400) Neutrophils (%) (Auto) 79 % (31-73) Lymphocytes (%) (Auto) 10 % (24-48) Monocytes (%) (Auto) 8 % (0-9) Eosinophils (%) (Auto) 2 % (0-3) Basophils (%) (Auto) 1 % (0-3) Neutrophils # (Auto) 3.9 x10^3/uL (1.8-7.7) Lymphocytes # (Auto) 0.5 x10^3/uL (1.0-4.8) Monocytes # (Auto) 0.4 x10^3/uL (0.0-1.1) Eosinophils # (Auto) 0.1 x10^3/uL (0.0-0.7) Basophils # (Auto) 0.0 x10^3/uL (0.0-0.2) Platelet Estimate Adequate (ADEQUATE) Large Platelets Present Prothrombin Time 12.9 SEC (11.7-14.0) Prothromb Time International Ratio 1.0 (0.8-1.1) Activated Partial Thromboplast Time 27 SEC (24-38) Troponin I High Sensitivity 11 ng/L (4-50) 12 ng/L (4-50) YV-Zta-A-Type Natriuretic Peptide 1520 pg/mL (0-449) Sodium Level 140 mmol/L (136-145) Potassium Level 4.0 mmol/L (3.5-5.1) Chloride Level 107 mmol/L (98-107) Carbon Dioxide Level 24 mmol/L (21-32) Anion Gap 9 (6-14) Blood Urea Nitrogen 20 mg/dL (7-20) Creatinine 0.9 mg/dL (0.6-1.0) Estimated GFR (Cockcroft-Gault) 59.5 BUN/Creatinine Ratio 22 (6-20) Glucose Level 100 mg/dL (70-99) Calcium Level 9.2 mg/dL (8.5-10.1) Magnesium Level 1.9 mg/dL (1.8-2.4) Total Bilirubin 1.2 mg/dL (0.2-1.0) Aspartate Amino Transf (AST/SGOT) 19 U/L (15-37) Alanine Aminotransferase (ALT/SGPT) 23 U/L (14-59) Alkaline Phosphatase 122 U/L (46-116) Total Protein 6.4 g/dL (6.4-8.2) Albumin 3.4 g/dL (3.4-5.0) Albumin/Globulin Ratio 1.1 (1.0-1.7) Urine Collection Type Unknown Urine Color (Auto) Gilliam Urine Turbidity Hazy Urine pH (Auto) (<5.0-8.0) Urine Specific [place] (1.000-1.030) Urine Protein (Auto) mg/dL (Negative) Urine Glucose (Auto)(UA) mg/dL (Negative) Urine Ketones (Auto) mg/dL (Negative) Urine Blood (Auto) (Negative) Urine Nitrite (Auto) (Negative) Urine Bilirubin (Auto) (Negative) Urine Urobilinogen (Auto) mg/dL (Normal) Urine Leukocyte Esterase (Auto) (Negative) Urine RBC 0 /HPF (0-2) Urine WBC Tntc /HPF (0-4) Urine Squamous Epithelial Cells Many /LPF Urine Bacteria 0 /HPF (0-FEW) Urine Mucus Marked /LPF Test 01/16/22 16:00 Troponin I High Sensitivity 14 ng/L (4-50) Assessment/Plan Assessment/Plan 1. Chest pain with atypical features, most probably musculoskeletal. Myocardial infarction has been ruled out. 2D echo 07/2021 showed LVEF 45%. No further cardiac work-up is indicated at this time. 2. Coronary artery disease s/p PCI/YUNIER to LAD in April 2021, appears clinically stable. Continue dual antiplatelet therapy. 3. Paroxysmal atrial fibrillation s/p recent cardioversion, presently back in atrial fibrillation. Her heart rate is very well controlled. We will consider stopping Multaq and referring patient to EP service as an outpatient. Continue Eliquis for stroke prophylaxis. 4. Hypertension: Well-controlled 5. Hyperlipidemia: Continue statin therapy Okay for DC from cardiac standpoint. Follow-up with our office in 1 month. Thank you for your consultation MATTHEW MARIE MD January 17, 2022 09:08
[2022-01-17] MEDS ORDERED: cefTRIAXone IV Push 1 GM VIAL. IVP SCH (10:00)
[2022-01-17] MEDS ORDERED: ONDANSETRON PF 4 MG/2 ML VIAL. IVP PRN (10:15)
[2022-01-17 10:53] LABS: BASO % 1 % (0-3); EOS # 0.2 x10^3/uL (0.0-0.7); EOS % 5 % (0-3); HEMATOCRIT 41.1 % (36.0-47.0); HEMOGLOBIN 13.4 g/dL (12.0-15.5); LYMPH # 0.5 x10^3/uL (1.0-4.8); LYMPH % 16 % (24-48); MEAN CORPUSCULAR HEMOGLOBIN 29 pg (25-35); MEAN CORPUSCULAR HGB CONC 33 g/dL (31-37); MEAN CORPUSCULAR VOLUME 87 fL (79-100); MONO # 0.4 x10^3/uL (0.0-1.1); MONO % 11 % (0-9); NEUT # 2.2 x10^3/uL (1.8-7.7); NEUT % 67 % (31-73); PLATELET COUNT 99 x10^3/uL (140-400); RED CELL DISTRIBUTION WIDTH 15.9 % (11.5-14.5); WHITE BLOOD COUNT 3.3 x10^3/uL (4.0-11.0)
[2022-01-17 11:00] VITALS: BP 104/80
[2022-01-17 11:10] LABS: ALBUMIN 3.3 g/dL (3.4-5.0); ALBUMIN/GLOBULIN RATIO 1.1 (1.0-1.7); CALCIUM 9.1 mg/dL (8.5-10.1); CREATININE 0.8 mg/dL (0.6-1.0); GFR 68.2; POTASSIUM 4.1 mmol/L (3.5-5.1); TOTAL BILIRUBIN 0.9 mg/dL (0.2-1.0); TOTAL PROTEIN 6.4 g/dL (6.4-8.2)
[2022-01-17] MEDS ORDERED: CEPH500T PO (13:46)
--- NOTE | 2022-01-17 13:47 | DISCH ---
DISCHARGE INSTRUCTIONS Condition on Discharge Condition on Discharge: Stable Activity After Discharge Activity Instructions for Disc: Resume previous activity Diet after Discharge Diet after Discharge: Cardiac Diet Texture: Regular Liquid Texture: Thin Liquid Swallowing Supervision: None needed Wound Incision Care Wound/Incision Care: No wound care needed Checks after Discharge Checks after discharge: Check blood press - daily, Check your Temp as needed Contacting the DR. after DC Call your doctor for: If your condition worsens Treatment/Equipment after DC Adaptive Equipment Issued: None INO MEEKS MD January 17, 2022 13:47
--- NOTE | 2022-01-17 13:55 | PDOC3 ---
Discharge Summary Visit Information Date of Discharge: January 17, 2022 Final Diagnosis Rapid atrial fibrillation Acute lower UTI Atypical chest pain perhaps from the atrial fibrillation not thought to be secondary to acute coronary syndrome Brief Hospital Course Allergies Allergies Coded Allergies Type Severity Reaction Last Updated Verified codeine Adverse Reaction Intermediate diarrhea, vomiting 09/10/21 Yes Vital Signs Vital Signs Date Time Temp Pulse Resp B/P (MAP) Pulse Ox O2 Delivery O2 Flow Rate FiO2 01/17/22 11:00 98.0 71 18 104/80 (88) 96 Nasal Cannula 98.0 In general patient is very spry pleasant alert and oriented x3 no acute distress appears younger than stated age HEENT exam is unremarkable for acute abnormality Neck is soft and supple no adenopathy or thyromegaly noted Chest is clear to auscultation Heart S1-S2 normal regular rate and rhythm no murmurs or gallops are noted Abdomen soft nontender nondistended no masses organomegaly noted Extremity exam is unremarkable for acute abnormality Lab Results Laboratory Tests Test 01/16/22 09:16 01/16/22 09:57 01/16/22 12:27 01/16/22 14:20 White Blood Count 5.0 x10^3/uL (4.0-11.0) Red Blood Count 4.54 x10^6/uL (3.50-5.40) Hemoglobin 12.9 g/dL (12.0-15.5) Hematocrit 39.7 % (36.0-47.0) Mean Corpuscular Volume 88 fL (79-100) Mean Corpuscular Hemoglobin 29 pg (25-35) Mean Corpuscular Hemoglobin Concent 33 g/dL (31-37) Red Cell Distribution Width 16.2 % (11.5-14.5) Platelet Count 103 x10^3/uL (140-400) Neutrophils (%) (Auto) 79 % (31-73) Lymphocytes (%) (Auto) 10 % (24-48) Monocytes (%) (Auto) 8 % (0-9) Eosinophils (%) (Auto) 2 % (0-3) Basophils (%) (Auto) 1 % (0-3) Neutrophils # (Auto) 3.9 x10^3/uL (1.8-7.7) Lymphocytes # (Auto) 0.5 x10^3/uL (1.0-4.8) Monocytes # (Auto) 0.4 x10^3/uL (0.0-1.1) Eosinophils # (Auto) 0.1 x10^3/uL (0.0-0.7) Basophils # (Auto) 0.0 x10^3/uL (0.0-0.2) Platelet Estimate Adequate (ADEQUATE) Large Platelets Present Prothrombin Time 12.9 SEC (11.7-14.0) Prothromb Time International Ratio 1.0 (0.8-1.1) Activated Partial Thromboplast Time 27 SEC (24-38) Troponin I High Sensitivity 11 ng/L (4-50) 12 ng/L (4-50) ZW-Olx-Z-Type Natriuretic Peptide 1520 pg/mL (0-449) Sodium Level 140 mmol/L (136-145) Potassium Level 4.0 mmol/L (3.5-5.1) Chloride Level 107 mmol/L (98-107) Carbon Dioxide Level 24 mmol/L (21-32) Anion Gap 9 (6-14) Blood Urea Nitrogen 20 mg/dL (7-20) Creatinine 0.9 mg/dL (0.6-1.0) Estimated GFR (Cockcroft-Gault) 59.5 BUN/Creatinine Ratio 22 (6-20) Glucose Level 100 mg/dL (70-99) Calcium Level 9.2 mg/dL (8.5-10.1) Magnesium Level 1.9 mg/dL (1.8-2.4) Total Bilirubin 1.2 mg/dL (0.2-1.0) Aspartate Amino Transf (AST/SGOT) 19 U/L (15-37) Alanine Aminotransferase (ALT/SGPT) 23 U/L (14-59) Alkaline Phosphatase 122 U/L (46-116) Total Protein 6.4 g/dL (6.4-8.2) Albumin 3.4 g/dL (3.4-5.0) Albumin/Globulin Ratio 1.1 (1.0-1.7) Urine Collection Type Unknown Urine Color (Auto) [place] Urine Turbidity Hazy Urine pH (Auto) (<5.0-8.0) Urine Specific [place] (1.000-1.030) Urine Protein (Auto) mg/dL (Negative) Urine Glucose (Auto)(UA) mg/dL (Negative) Urine Ketones (Auto) mg/dL (Negative) Urine Blood (Auto) (Negative) Urine Nitrite (Auto) (Negative) Urine Bilirubin (Auto) (Negative) Urine Urobilinogen (Auto) mg/dL (Normal) Urine Leukocyte Esterase (Auto) (Negative) Urine RBC 0 /HPF (0-2) Urine WBC Tntc /HPF (0-4) Urine Squamous Epithelial Cells Many /LPF Urine Bacteria 0 /HPF (0-FEW) Urine Mucus Marked /LPF Test 01/16/22 16:00 01/17/22 10:30 Troponin I High Sensitivity 14 ng/L (4-50) White Blood Count 3.3 x10^3/uL (4.0-11.0) Red Blood Count 4.70 x10^6/uL (3.50-5.40) Hemoglobin 13.4 g/dL (12.0-15.5) Hematocrit 41.1 % (36.0-47.0) Mean Corpuscular Volume 87 fL (79-100) Mean Corpuscular Hemoglobin 29 pg (25-35) Mean Corpuscular Hemoglobin Concent 33 g/dL (31-37) Red Cell Distribution Width 15.9 % (11.5-14.5) Platelet Count 99 x10^3/uL (140-400) Neutrophils (%) (Auto) 67 % (31-73) Lymphocytes (%) (Auto) 16 % (24-48) Monocytes (%) (Auto) 11 % (0-9) Eosinophils (%) (Auto) 5 % (0-3) Basophils (%) (Auto) 1 % (0-3) Neutrophils # (Auto) 2.2 x10^3/uL (1.8-7.7) Lymphocytes # (Auto) 0.5 x10^3/uL (1.0-4.8) Monocytes # (Auto) 0.4 x10^3/uL (0.0-1.1) Eosinophils # (Auto) 0.2 x10^3/uL (0.0-0.7) Basophils # (Auto) 0.0 x10^3/uL (0.0-0.2) Sodium Level 141 mmol/L (136-145) Potassium Level 4.1 mmol/L (3.5-5.1) Chloride Level 107 mmol/L (98-107) Carbon Dioxide Level 25 mmol/L (21-32) Anion Gap 9 (6-14) Blood Urea Nitrogen 19 mg/dL (7-20) Creatinine 0.8 mg/dL (0.6-1.0) Estimated GFR (Cockcroft-Gault) 68.2 BUN/Creatinine Ratio 24 (6-20) Glucose Level 93 mg/dL (70-99) Calcium Level 9.1 mg/dL (8.5-10.1) Total Bilirubin 0.9 mg/dL (0.2-1.0) Aspartate Amino Transf (AST/SGOT) 21 U/L (15-37) Alanine Aminotransferase (ALT/SGPT) 27 U/L (14-59) Alkaline Phosphatase 130 U/L (46-116) Total Protein 6.4 g/dL (6.4-8.2) Albumin 3.3 g/dL (3.4-5.0) Albumin/Globulin Ratio 1.1 (1.0-1.7) Laboratory Tests Test 01/16/22 14:20 01/16/22 16:00 01/17/22 10:30 Urine Collection Type Unknown Urine Color (Auto) [place] Urine Turbidity Hazy Urine pH (Auto) (<5.0-8.0) Urine Specific [place]af[place] (1.000-1.030) Urine Protein (Auto) mg/dL (Negative) Urine Glucose (Auto)(UA) mg/dL (Negative) Urine Ketones (Auto) mg/dL (Negative) Urine Blood (Auto) (Negative) Urine Nitrite (Auto) (Negative) Urine Bilirubin (Auto) (Negative) Urine Urobilinogen (Auto) mg/dL (Normal) Urine Leukocyte Esterase (Auto) (Negative) Urine RBC 0 /HPF (0-2) Urine WBC Tntc /HPF (0-4) Urine Squamous Epithelial Cells Many /LPF Urine Bacteria 0 /HPF (0-FEW) Urine Mucus Marked /LPF Troponin I High Sensitivity 14 ng/L (4-50) White Blood Count 3.3 x10^3/uL (4.0-11.0) Red Blood Count 4.70 x10^6/uL (3.50-5.40) Hemoglobin 13.4 g/dL (12.0-15.5) Hematocrit 41.1 % (36.0-47.0) Mean Corpuscular Volume 87 fL (79-100) Mean Corpuscular Hemoglobin 29 pg (25-35) Mean Corpuscular Hemoglobin Concent 33 g/dL (31-37) Red Cell Distribution Width 15.9 % (11.5-14.5) Platelet Count 99 x10^3/uL (140-400) Neutrophils (%) (Auto) 67 % (31-73) Lymphocytes (%) (Auto) 16 % (24-48) Monocytes (%) (Auto) 11 % (0-9) Eosinophils (%) (Auto) 5 % (0-3) Basophils (%) (Auto) 1 % (0-3) Neutrophils # (Auto) 2.2 x10^3/uL (1.8-7.7) Lymphocytes # (Auto) 0.5 x10^3/uL (1.0-4.8) Monocytes # (Auto) 0.4 x10^3/uL (0.0-1.1) Eosinophils # (Auto) 0.2 x10^3/uL (0.0-0.7) Basophils # (Auto) 0.0 x10^3/uL (0.0-0.2) Sodium Level 141 mmol/L (136-145) Potassium Level 4.1 mmol/L (3.5-5.1) Chloride Level 107 mmol/L (98-107) Carbon Dioxide Level 25 mmol/L (21-32) Anion Gap 9 (6-14) Blood Urea Nitrogen 19 mg/dL (7-20) Creatinine 0.8 mg/dL (0.6-1.0) Estimated GFR (Cockcroft-Gault) 68.2 BUN/Creatinine Ratio 24 (6-20) Glucose Level 93 mg/dL (70-99) Calcium Level 9.1 mg/dL (8.5-10.1) Total Bilirubin 0.9 mg/dL (0.2-1.0) Aspartate Amino Transf (AST/SGOT) 21 U/L (15-37) Alanine Aminotransferase (ALT/SGPT) 27 U/L (14-59) Alkaline Phosphatase 130 U/L (46-116) Total Protein 6.4 g/dL (6.4-8.2) Albumin 3.3 g/dL (3.4-5.0) Albumin/Globulin Ratio 1.1 (1.0-1.7) Brief Hospital Course Ms. Vee is a 86 old woman who is a continuity outpatient of Dr. Reji Nichols and Dr. Colunga who use the [facility] hospitalist here at [facility] I am rounding for them this weekend. Patient was admitted yesterday with substernal chest pain radiating into her jaw and left arm reminiscent of her coronary disease. That pain has resolved. She was found to be in rapid atrial fibrillation in the emergency department heart rate is now at a more manageable level. She has been cleared for discharge by Dr. René Lopez and his assistance is appreciated. Patient is eager for discharge. She will follow-up with Dr. Colunga and Dr. Reji Nichols this week. Patient was also found to have urinary tract infection cultures are pending. We will start her on Keflex given the interaction of the Cipro with her antiarrhythmic. Continue current management otherwise. Time spent today is 30 minutes with greater than 50% in counseling and coordination of care most of which in discussion with patient regarding care plan and progress. Assessment Assessment Plan as noted above This note was created using Music[employer] and may have omissions and/or errors due to the nature of real-time voice fisher net. Discharge Information Condition at Discharge: Improved Follow Up: Weeks (1) Scheduled Apixaban (Eliquis) 2.5 Mg Tablet, 2.5 MG PO BID, (Reported) Entered as Reported by: Prince Donato on 04/11/18 2104 Aspirin (Aspirin) 81 Mg Tab.chew, 1 TAB PO DAILY for heart, #30 Ref 3 (Reported) Entered as Reported by: MIRACLE TRAVIS on 01/16/22 1330 Last Action: Continued on 01/16/22 1507 by MIRACLE RAMTEL Atorvastatin Calcium (Atorvastatin Calcium) 40 Mg Tablet, 40 MG PO QHS for cholesterol for 30 Days, #30 Ref 1 Prescribed by: ROGER CAMPBELL MD on 05/06/21 1208 Last Action: Continued on 01/16/22 1507 by MIRACLE RAMTEL Calcium Carbonate/Vitamin D3 (Calcium + Vitamin D Tablet) 1 Each Tablet, 1 EACH PO BID, (Reported) Entered as Reported by: CHUCK ANDERSON on 05/17/14 0442 Last Action: Converted on 01/16/22 1507 by MIRACLE RAMTEL Clopidogrel Bisulfate (Clopidogrel) 75 Mg Tablet, 75 MG PO DAILYWBKFT for heart disease for 30 Days, #30 Ref 1 Prescribed by: ROGER CAMPBELL MD on 05/06/21 1208 Cyanocobalamin (Vitamin B-12) (Vitamin B12) 2,500 Mcg Tablet, 1,000 MCG PO DAILY for SUPPLEMENT, (Reported) Entered as Reported by: NAOMIE HUDDLESTON on 09/27/19 1343 Last Action: Converted on 01/16/22 1507 by MIRACLE RAMTEL Dronedarone Hcl (Multaq) 400 Mg Tablet, 1 TAB PO BID for CARDIAC ARRYTHMIA, #180 Ref 1 (Reported) Entered as Reported by: ALEX LAWS on 04/10/20 2218 Last Action: Continued on 01/16/22 1507 by MIRACLE RAMTEL Lactobacillus Acidophilus (Probiotic) 1 Each Capsule, 1 EACH PO DAILY, (Reported) Entered as Reported by: DHARMESH SMITH on 04/12/18 0837 Last Action: Converted on 01/16/22 1507 by MIRACLE RAMTEL Latanoprost/Pf (Latanoprost 0.005% Eye Drop) 7.5 Ml Drops, 1 DROP OS QHS for GLAUCOMA, (Reported) Entered as Reported by: Todd Cortés on 05/05/21 1755 Metoprolol Tartrate (Metoprolol Tartrate) 25 Mg Tablet, 12.5 MG PO BID for heart rate for 30 Days, #30 Ref 2 NS Prescribed by: ROGER CAMPBELL MD on 08/29/21 0918 Multivitamin (Multi-Day Vitamins) 1 Each Tablet, 1 TAB PO DAILY, #30 (Reported) Entered as Reported by: CHUCK ANDERSON on 05/17/14 0442 Nitroglycerin (NITROGLYCERIN SubLingual) 0.4 Mg Tab.subl, 1 TAB SL UD, #25 Ref 3 (Reported) Entered as Reported by: CHUCK ANDERSON on 05/17/14 044 Pantoprazole Sodium (Pantoprazole Sodium ) 40 Mg Tablet.dr, 40 MG PO DAILYAC for GERD, (Reported) Entered as Reported by: MIRACLE TRAVIS on 01/16/22 1330 Last Action: Continued on 01/16/22 1507 by MIRACLE RAMTEL Ropinirole Hcl (Ropinirole Hcl) 0.25 Mg Tablet, 0.25 MG PO HS for restless legs, (Reported) Entered as Reported by: SATISH RHOADES on 08/25/211911 Last Action: Continued on 01/16/22 1507 by MIRACLE TRAVIS Scheduled PRN Acetaminophen (Tylenol Extra Strength) 500 Mg Tablet, 500 MG PO PRN PRN for PAIN, (Reported) Entered as Reported by: CHUCK ANDERSON on 05/17/14 0442 Ondansetron (Ondansetron Odt) 4 Mg Tab.rapdis, 4 MG PO QID PRN for NAUSEA/VOMITING for 3 Days, #12 Prescribed by: YASMIN TSE DO on 09/10/21 1504 Justicifation of Admission Dx: Justifications for Admission: Justification of Admission Dx: N/A INO MEEKS MD January 17, 2022 13:55
--- NOTE | 2022-01-17 16:02 | NUR ---
patient discharged home w/ daughter. IV removed intact. Member stable upon DC. Discharge instructions reviewed.
== END 2022-01-17 16:01 | disposition home or self-care (01) | DRG 309 ==
LOC: ER 09:00 → 6 SOUTH 10:40
PROVIDERS: ADMIT Internal Medicine; ATTEND Internal Medicine
DX: I48.0 Paroxysmal atrial fibrillation (principal); N39.0 Urinary tract infection, site not specified; E78.00 Pure hypercholesterolemia, unspecified; E78.5 Hyperlipidemia, unspecified; I10 Essential (primary) hypertension; I25.10 Atherosclerotic heart disease of native coronary artery without angina pectoris; I25.2 Old myocardial infarction; Z79.01 Long term (current) use of anticoagulants; Z82.49 Family history of ischemic heart disease and other diseases of the circulatory system; Z90.49 Acquired absence of other specified parts of digestive tract; Z90.710 Acquired absence of both cervix and uterus; Z95.5 Presence of coronary angioplasty implant and graft; K21.9 Gastro-esophageal reflux disease without esophagitis; K57.90 Diverticulosis of intestine, part unspecified, without perforation or abscess without bleeding; M19.90 Unspecified osteoarthritis, unspecified site; Z88.8 Allergy status to other drugs, medicaments and biological substances
CPT/HCPCS: 36415; 71045; 80053; 81001; 83735; 83880; 84484; 85025; 85610; 85730; 93005; J0696; J2405; 99285-25; G0378